=== PATIENT | male | born 1955 | race American Indian/Alaskan Native ===

== ENCOUNTER 2018-05-26 22:25 | Inpatient (IN) | payer MEDICARE ==
[2018-05-26] MEDS ORDERED: ASPIRIN PO ONE (22:55)
--- NOTE | 2018-05-26 22:55 | Emergency Department Report ---
ED Shortness of Breath HPI - General Chief Complaint: Dyspnea/Respdistress Stated Complaint: SHORTNESS OF BREATH Time Seen by Provider: 05/26/18 22:40 Source: patient, family Mode of arrival: Ambulatory Limitations: No Limitations - History of Present Illness Initial Comments: Patient is a 63-year-old male absence emergency room with complaints of chest pain and shortness of breath 4 days. Patient states the symptoms are worsening. Patient states that he is having left lower extremity pain and swelling. Patient states that the chest pain is a 5 out of 10 and is better with rest and worse with exertion. Patient states that the pain is not radi ating and is in the left side of his chest. Patient states the shortness of breath is better with rest and worse with exertion. Patient had a long travel recently in a car. Patient complaining of a new onset left lower extremity edema. Patient states that the left lower extremity pain is at a 4 out of 10. MD Complaint: shortness of breath, chest pain -: Sudden Severity: severe Pain Scale: 5 Quality: aching Consistency: constant Improves With: rest Worsens With: exertion Known History Of: congestive heart failure Associated Symptoms: chest pain, lower extremity pain Treatments Prior to Arrival: none - Related Data Home Oxygen Therapy: No Home Medications Medication Instructions Recorded Confirmed Last Taken Aspirin [Aspirin BABY CHEW TAB] 81 mg PO QDAY 12/02/14 02/04/15 Unknown Lisinopril [Zestril TAB] 0 mg PO QDAY 02/04/15 02/04/15 Unknown Previous Rx's Medication Instructions Recorded Last Taken Type Amiodarone [Cordarone 200 MG TAB] 200 mg PO QDAY #60 tablet 02/12/15 Unknown Rx Carvedilol [Coreg] 25 mg PO BID #60 tablet 02/12/15 Unknown Rx Lisinopril [Zestril TAB] 2.5 mg PO QDAY #30 tablet 02/12/15 Unknown Rx Warfarin [Coumadin] 5 mg PO QDAY #30 tablet 02/12/15 Unknown Rx Cyclobenzaprine [Flexeril] 10 mg PO BID PRN #30 tablet 09/18/15 Unknown Rx Oxycodone HCl/Acetaminophen 1 each PO Q6HR PRN #30 tablet 09/18/15 Unknown Rx [Percocet 10/325 mg] Allergies Allergy/AdvReac Type Severity Reaction Status Date / Time erythromycin base Allergy Unknown Verified 01/03/15 13:35 [From E-Mycin] ED Review of Systems ROS: Stated complaint: SHORTNESS OF BREATH Other details as noted in HPI Constitutional: denies: chills, fever Eyes: denies: eye pain, eye discharge, vision change ENT: denies: ear pain, throat pain Respiratory: shortness of breath, SOB with exertion, SOB at rest. denies: cough, wheezing Cardiovascular: chest pain, edema. denies: palpitations Endocrine: no symptoms reported Gastrointestinal: denies: abdominal pain, nausea, diarrhea Genitourinary: denies: urgency, dysuria Musculoskeletal: denies: back pain, joint swelling, arthralgia Skin: denies: rash, lesions Neurological: denies: headache, weakness, paresthesias Psychiatric: denies: anxiety, depression Hematological/Lymphatic: denies: easy bleeding, easy bruising ED Past Medical Hx - Past Medical History Previous Medical History?: Yes Hx Hypertension: Yes Hx Congestive Heart Failure: Yes Hx Diabetes: No Hx Asthma: No Hx COPD: No Additional medical history: Defib/Pacemaker - Surgical History Past Surgical History?: Yes Hx Pacemaker: Yes Hx Internal Defibrillator: Yes (AICD) Hx Cholecystectomy: Yes Hx Appendectomy: Yes Additional Surgical History: hernia surgery, right BKA - Family History Family history: no significant - Social History Smoking Status: Current Every Day Smoker Substance Use Type: None - Medications Home Medications: Home Medications Medication Instructions Recorded Confirmed Last Taken Type Aspirin [Aspirin BABY CHEW TAB] 81 mg PO QDAY 12/02/14 02/04/15 Unknown History Lisinopril [Zestril TAB] 0 mg PO QDAY 02/04/15 02/04/15 Unknown History Amiodarone [Cordarone 200 MG TAB] 200 mg PO QDAY #60 tablet 02/12/15 Unknown Rx Carvedilol [Coreg] 25 mg PO BID #60 tablet 02/12/15 Unknown Rx Lisinopril [Zestril TAB] 2.5 mg PO QDAY #30 tablet 02/12/15 Unknown Rx Warfarin [Coumadin] 5 mg PO QDAY #30 tablet 02/12/15 Unknown Rx Cyclobenzaprine [Flexeril] 10 mg PO BID PRN #30 tablet 09/18/15 Unknown Rx Oxycodone HCl/Acetaminophen 1 each PO Q6HR PRN #30 tablet 09/18/15 Unknown Rx [Percocet 10/325 mg] ED Physical Exam - General Limitations: No Limitations General appearance: alert, in distress - Head Head exam: Present: atraumatic, normocephalic - Eye Eye exam: Present: normal appearance - ENT ENT exam: Present: mucous membranes moist - Neck Neck exam: Present: normal inspection - Respiratory Respiratory exam: Present: respiratory distress, rales - Cardiovascular Cardiovascular Exam: Present: regular rate, normal rhythm. Absent: systolic murmur, diastolic murmur, rubs, gallop - GI/Abdominal GI/Abdominal exam: Present: soft, normal bowel sounds. Absent: distended, tenderness, guarding - Rectal Rectal exam: Present: deferred - Extremities Exam Extremities exam: Present: tenderness, pedal edema, calf tenderness - Back Exam Back exam: Present: normal inspection - Neurological Exam Neurological exam: Present: alert, oriented X3 - Psychiatric Psychiatric exam: Present: normal affect, normal mood - Skin Skin exam: Present: warm, dry, intact, normal color. Absent: rash ED Course Vital Signs 05/26/18 23:09 Pulse Rate 90 Respiratory 32 H Rate Blood Pressure 133/87 [Left] O2 Sat by Pulse 90 Oximetry - Reevaluation(s) Reevaluation #1: Initial evaluation done. Patient will have a CTA to rule out a PE. Patient placed on oxygen and oxygen sat improving. 05/26/18 22:40 Patient given something for pain. Patient states his pain is better. Patient still on oxygen. 05/26/18 23:30 Discussed all results the patient. Patient agrees with plan of care and admission. Patient to be admitted to the hospitalist service. 05/27/18 02:20 - Consultations Consultation #1: Hospitalist consult for admission. Hospitalist to admit patient. 05/27/18 02:21 ED Medical Decision Making - Lab Data Result diagrams: 05/26/18 23:00 05/26/18 23:00 - EKG Data -: EKG Interpreted by Me EKG shows normal: axis, ST-T waves Rate: normal - EKG Data Interpretation: other (AV paced) - Radiology Data Radiology results: report reviewed PROCEDURE: CT ANGIO CHEST TECHNIQUE: Medication reconciliation. IV contrast administration of weight-dependent volume of iodine-based contrast team (Omnipaque 350, 100 mL) CTA chest to opacify pulmonary arteries. MPR. CAUTION: Study not optimized for aortic dissection evaluation. Overall image quality is satisfactory. HISTORY: Shortness of breath and chest pain. COMPARISONS: Radiographs earlier same day. COMMENTS: Support devices: Dual lead cardiac pacemaker is present, resulting in significant beam hardening artifact limiting evaluation partially of the left upper lobe and adjacent soft tissues. Pulmonary artery embolism: None. Pneumothorax, consolidation or pleural effusion: Diffuse groundglass opacities with marked interstitial thickening and prominence of the central vascularity. No focal pleural effusion or pneumothorax. Cardiomegaly or pericardial effusion: Moderate to severe cardiac enlargement, specifically there is marked dilatation of the left atrium and ventricle. Sternum, ribs and thoracic spine: T8, mild anterior compression deformity. IMPRESSION: 1. No pulmonary embolism. 2. Moderate to severe cardiomegaly with diffuse interstitial edema, findings suggestive of congestive heart failure. No large pleural effusion. PROCEDURE: XR CHEST 1V AP TECHNIQUE: Single AP upright portable chest HISTORY: Dyspnea COMPARISONS: None FINDINGS: Trachea midline. Cardiomegaly. AICD with unremarkable position. Vascular and interstitial prominence compatible with congestion. No pneumothorax. No sizable effusion. No consolidation. No acute bony abnormality. IMPRESSION: Cardiomegaly. Mild vascular and interstitial prominence compatible with congest ion. - Medical Decision Making Patient is a 63-year-old male that presents to emergency room with complaints of chest pain shortness of breath. Patient found to be hypoxic. Patient also complained of left lower extremity pain and swelling. Patient had elevated d-dimer. CTA was negative or PE but shows CHF changes. Patient elevated BNP. Patient also found to be hyponatremic. Patient's troponin negative. Patient will be given Lovenox 1 mg/kg, for possible DVT until patient can have a Doppler done. Patient will be admitted for chest pain rule out ACS. Patient found to have CHF exacerbation. Patient will admitted to the hospitalist service. Patient also given IV Lasix. Patient given Dilaudid for chest pain and aspirin. - Differential Diagnosis chest pain. ACS. SOB. CHF. DVT. PE. Critical Care Time: Yes Critical care attestation.: If time is entered above; I have spent that time in minutes in the direct care of this critically ill patient, excluding procedure time. Critical Care Time: 45 minutes ED Disposition Clinical Impression: AICD (automatic cardioverter/defibrillator) present, Shortness of breath, Hypoxia, Lactic acid acidosis, Hyponatremia, Left leg pain, Left leg swelling Chest pain Qualifiers: Chest pain type: unspecified Qualified Code(s): R07.9 - Chest pain, unspecified CHF (congestive heart failure) Qualifiers: Heart failure type: unspecified Heart failure chronicity: acute Qualified Code(s): I50.9 - Heart failure, unspecified Disposition: 09 OP ADMIT IP TO THIS HOSP Is pt being admited?: Yes Does the pt Need Aspirin: No Condition: Critical Instructions: Chest Pain (ED) Time of Disposition: 02:33
[2018-05-26 23:38] LABS: Creatine Kinase MB 4.5 ng/mL (0.0-4.0)
[2018-05-26 23:39] LABS: Alanine Aminotransferase 22 units/L (7-56); BUN/Creatinine Ratio 27; Blood Urea Nitrogen 27 mg/dL (9-20); Calcium 8.5 mg/dL (8.4-10.2); Hemolysis Index 23
[2018-05-26] MEDS ORDERED: DILAUDID IV ONE (23:40)
--- NOTE | 2018-05-26 23:42 | XRay Report ---
PROCEDURE: XR CHEST 1V AP TECHNIQUE: Single AP upright portable chest HISTORY: Dyspnea COMPARISONS: None FINDINGS: Trachea midline. Cardiomegaly. AICD with unremarkable position. Vascular and interstitial prominence compatible with congestion. No pneumothorax. No sizable effusion. No consolidation. No acute bony abn ormality. IMPRESSION: Cardiomegaly. Mild vascular and interstitial prominence compatible with congestion. This document is electronically signed by Rocky Sauer MD., May 26 2018 11:40:03 PM ET
[2018-05-27 00:12] LABS: Mean Corpuscular HGB Conc 34 % (32-34); Mean Corpuscular Volume 86 fl (84-94); Platelet Count 224 K/mm3 (140-440); Red Blood Count 3.83 M/mm3 (3.65-5.03); Red Cell Distribution Width 18.7 % (13.2-15.2)
--- NOTE | 2018-05-27 02:01 | Cat Scan Report ---
PROCEDURE: CT ANGIO CHEST TECHNIQUE: Medication reconciliation. IV contrast administration of weight-dependent volume of iodine-based contrast team (Omnipaque 350, 1 00 mL) CTA chest to opacify pulmonary arteries. MPR. CAUTION: Study not optimized for aortic dissection evaluation. Overall image quality is satisfactory. HISTORY: Shortness of breath and chest pain. COMPARISONS: Radiographs earlier same day. COMMENTS: Support devices: Dual lead cardiac pacemaker is present, resulting in significant beam hardening ke fact limiting evaluation partially of the left upper lobe and adjacent soft tissues. Pulmonary artery embolism: None. Pneumothorax, consolidation or pleural effusion: Diffuse groundglass opacities with marked interstiti al thickening and prominence of the central vascularity. No focal pleural effusion or pneumothorax. Cardiomegaly or pericardial effusion: Moderate to severe cardiac enlargement, specifically there is m arked dilatation of the left atrium and ventricle. Sternum, ribs and thoracic spine: T8, mild anterior compression deformity. IMPRESSION: 1. No pulmonary embolism. 2. Moderate to severe cardiomegaly with diffuse interstitial edema, findings suggestive of congestive heart failure. No large pleural effusion. This document is electronically signed by Carroll Moon DO., May 27 2018 01:59:13 AM ET
[2018-05-27] MEDS ORDERED: LASIX IV ONE (02:19)
[2018-05-27 02:38] LABS: Anisocytosis 1+; Platelet Estimate Consistent w Auto; Poikilocytosis 1+; Total Cells Counted 100
[2018-05-27] MEDS ORDERED: LOVENOX SUB-Q SCH (03:00)
[2018-05-27] MEDS ORDERED: SODIUM CHLORIDE FLUSH SYRINGE 10 ML IV PRN (04:42)
[2018-05-27] MEDS ORDERED: ZOFRAN IV PRN (04:42)
[2018-05-27] MEDS ORDERED: TYLENOL PO PRN (04:42)
--- NOTE | 2018-05-27 04:51 | History and Physical Report ---
History of Present Illness Date of examination: 05/27/18 History of present illness: 63 year old man with history her home and history of CHF, hypertension, atrial flutter, coronary artery disease comes emergency room complains of shortness breath, PND, orthopnea and left leg swelling. Complains of dyspnea and exertio n, decrease exercise tolerance, weakness. Stated he just returned from [place] 2 days ago. He is on a blood thinner, he does not know why Review of systems Constitutional: no weight loss, chills, fever Ears, eyes, nose, mouth and throat: no nasal congestion, no nasal discharge, no sinus pressure, no vision change, no red eye. Neck: No neck pain or rigidity. Cardiovascular: no palpitations, chest pain Respiratory: no cough, shortness of breath Gastrointestinal: no hematochezia, abdominal pain Genitourinary : no frequency , no hematuria Musculoskeletal: no joint swelling or muscle ache Integumentary: no rash, no pruritis Neurological: no parathesias, no focal weakness Endocrine: no cold or heat intolerance, no polyuria or polydipsia Hematologic/Lymphatic: no easy bruising, no easy bleeding, no gland swelling Allergic/Immunologic: no urticaria, no angioedema. PAST MEDICAL HISTORY:CHF, hypertension, atrial flutter, coronary artery disease PAST SURGICAL HISTORY: AICD, right BKA, cholecystectomy, hernia repair SOCIAL HISTORY: Denies alcohol, drugs, 1 pack every 2 weeks FAMILY HISTORY: Hypertension Medications and Allergies Allergies Allergy/AdvReac Type Severity Reaction Status Date / Time erythromycin base Allergy Unknown Verified 01/03/15 13:35 [From E-Mycin] Home Medications Medication Instructions Recorded Confirmed Last Taken Type Aspirin [Aspirin BABY CHEW TAB] 81 mg PO QDAY 12/02/14 02/04/15 Unknown History Lisinopril [Zestril TAB] 0 mg PO QDAY 02/04/15 02/04/15 Unknown History Amiodarone [Cordarone 200 MG TAB] 200 mg PO QDAY #60 tablet 02/12/15 Unknown Rx Carvedilol [Coreg] 25 mg PO BID #60 tablet 02/12/15 Unknown Rx Lisinopril [Zestril TAB] 2.5 mg PO QDAY #30 tablet 02/12/15 Unknown Rx Warfarin [Coumadin] 5 mg PO QDAY #30 tablet 02/12/15 Unknown Rx Cyclobenzaprine [Flexeril] 10 mg PO BID PRN #30 tablet 09/18/15 Unknown Rx Oxycodone HCl/Acetaminophen 1 each PO Q6HR PRN #30 tablet 09/18/15 Unknown Rx [Percocet 10/325 mg] Active Meds: Active Medications Acetaminophen (Tylenol) 650 mg PO Q4H PRN PRN Reason: Pain MILD(1-3)/Fever >100.5/ANDERSON Aspirin (Baby Aspirin) 81 mg PO QDAY JULI Enoxaparin Sodium (Lovenox) 70 mg SUB-Q Q12HR [facility] Last Admin: 05/27/18 03:32 Dose: 70 mg Documented by: Furosemide (Lasix) 40 mg IV BID@0600,1800 [facility] Ondansetron HCl (Zofran) 4 mg IV Q8H PRN PRN Reason: Nausea And Vomiting Sodium Chloride (Sodium Chloride Flush Syringe 10 Ml) 10 ml IV BID JULI Sodium Chloride (Sodium Chloride Flush Syringe 10 Ml) 10 ml IV PRN PRN PRN Reason: LINE FLUSH Exam - Constitutional Vitals: Temp Pulse Resp BP Pulse Ox 97.5 F L 82 10 L 155/89 80 L 05/26/18 22:30 05/27/18 02:45 05/27/18 02:45 05/27/18 02:45 05/27/18 02:45 Results - Labs CBC & Chem 7: 05/26/18 23:00 05/26/18 23:00 Labs: Abnormal lab results 05/26/18 05/26/18 05/26/18 Range/Units 23:00 23:00 23:00 WBC 3.9 L (4.5-11.0) K/mm3 Hgb 11.0 L (11.8-15.2) gm/dl Hct 33.0 L (35.5-45.6) % RDW 18.7 H (13.2-15.2) % Monocytes % (Manual) 16.0 H (0.0-7.3) % Lymphocytes # (Manual) 0.9 L (1.2-5.4) K/mm3 D-Dimer 8624.60 H (0-234) ng/mlDDU Sodium 128 L (137-145) mmol/L Chloride 94.6 L (98-107) mmol/L BUN 27 H (9-20) mg/dL Glucose 119 H (75-100) mg/dL Lactic Acid (0.7-2.0) mmol/L Total Bilirubin 2.90 H (0.1-1.2) mg/dL Alkaline Phosphatase 178 H (35-129) units/L CK-MB (CK-2) (0.0-4.0) ng/mL NT-Pro-B Natriuret Pep (0-900) pg/mL Total Protein 8.5 H (6.3-8.2) g/dL Albumin 3.0 L (3.9-5) g/dL 05/26/18 05/26/18 05/27/18 Range/Units 23:00 23:36 00:40 WBC (4.5-11.0) K/mm3 Hgb (11.8-15.2) gm/dl Hct (35.5-45.6) % RDW (13.2-15.2) % Monocytes % (Manual) (0.0-7.3) % Lymphocytes # (Manual) (1.2-5.4) K/mm3 D-Dimer (0-234) ng/mlDDU Sodium (137-145) mmol/L Chloride (98-107) mmol/L BUN (9-20) mg/dL Glucose (75-100) mg/dL Lactic Acid 2.50 H* 2.40 H* (0.7-2.0) mmol/L Total Bilirubin (0.1-1.2) mg/dL Alkaline Phosphatase (35-129) units/L CK-MB (CK-2) 4.5 H (0.0-4.0) ng/mL NT-Pro-B Natriuret Pep 4911 H (0-900) pg/mL Total Protein (6.3-8.2) g/dL Albumin (3.9-5) g/dL - Imaging and Cardiology Chest x-ray: report reviewed CT scan - chest: report reviewed Assessment and Plan Assessment CHF exacerbation, acute on chronic Systolic Hypertension Atrial flutter Coronary artery disease Plan Admit to medicine Diurese with IV Lasix Start aspirin, check PT/INR I's and os, daily weights Check reticulocyte enzymes, echo, consult cardiology *Beta gagandeep, PEDRO inhibitor once home medications reconcile No evidence of infection, hold antibiotic DVT prophylaxis
[2018-05-27 05:30] LABS: INR 1.75 (0.87-1.13)
[2018-05-27 05:31] LABS: Partial Thromboplastin Time 46.9 Sec. (24.2-36.6)
[2018-05-27] MEDS: LASIX IV SCH ×2 (07:09→18:20)
[2018-05-27 10:01] LABS: BUN/Creatinine Ratio 36; Blood Urea Nitrogen 29 mg/dL (9-20); Calcium 8.8 mg/dL (8.4-10.2); Hemolysis Index 93
[2018-05-27 10:02] LABS: Creatine Kinase MB 5.2 ng/mL (0.0-4.0)
[2018-05-27] MEDS ORDERED: KIONEX PO ONE (10:46)
--- NOTE | 2018-05-27 10:59 | Progress Note ---
Assessment and Plan Assessment and plan: --Hyperkalemia; Kayexalate, closely monitor electrolytes --Hyponatremia; probably fluid overload secondary to congestive heart failure, Lasix and closely monitor electrolytes --Lactic acidosis; improved --Elevated d-dimer ; negative PE, negative DVT --Acute chronic systolic congestive heart failure[10-15% in 2015] Check echocardiogram for LV function and ejection fraction Cardiology consultation continue anti-failure medications --History of A. fib ; rate controlled, continue beta blockers --Chronic anticoagulation with Coumadin; INR --History of AICD; stable cardiology following --DVT Prophylaxis; patient on Coumadin Advanced care 32 minutes History Interval history: Patient seen and examined , medical records reviewed No new events per hour by the nursing staff Patient feels slightly better Alert awake oriented Vital signs reviewed Hospitalist Physical - Constitutional Vitals: Temp Pulse Resp BP Pulse Ox 97.5 F L 94 H 20 129/96 93 05/27/18 09:53 05/27/18 09:51 05/27/18 10:06 05/27/18 09:51 05/27/18 09:51 General appearance: Present: no acute distress, well-nourished - EENT Eyes: Present: PERRL, EOM intact - Neck Neck: Present: supple, normal ROM - Respiratory Respiratory effort: normal, pursed lips Respiratory: bilateral: diminished, rales, negative: rhonchi, wheezing - Cardiovascular Rhythm: regular Heart Sounds: Present: S1 & S2 - Extremities Extremities: no ischemia Extremity abnormal: edema - Abdominal General gastrointestinal: soft, non-tender, non-distended, normal bowel sounds - Integumentary Integumentary: Present: clear, warm - Psychiatric Psychiatric: appropriate mood/affect, cooperative - Neurologic Neurologic: CNII-XII intact, moves all extremities Results - Labs CBC & Chem 7: 05/26/18 23:00 05/27/18 09:29 Labs: Laboratory Last Values WBC 3.9 K/mm3 (4.5-11.0) L 05/26/18 23:00 RBC 3.83 M/mm3 (3.65-5.03) 05/26/18 23:00 Hgb 11.0 gm/dl (11.8-15.2) L 05/26/18 23:00 Hct 33.0 % (35.5-45.6) L 05/26/18 23:00 MCV 86 fl (84-94) 05/26/18 23:00 MCH 29 pg (28-32) 05/26/18 23:00 MCHC 34 % (32-34) 05/26/18 23:00 RDW 18.7 % (13.2-15.2) H 05/26/18 23:00 Plt Count 224 K/mm3 (140-440) 05/26/18 23:00 Lymph % (Auto) Computational Theory Scientist 05/26/18 23:00 [place] % (Auto) Computational Theory Scientist 05/26/18 23:00 Eos % (Auto) Computational Theory Scientist 05/26/18 23:00 Baso % (Auto) Computational Theory Scientist 05/26/18 23:00 Lymph # [employer] Scientist 05/26/18 23:00 [place] # [employer] Scientist 05/26/18 23:00 Eos # Computational Theory Scientist 05/26/18 23:00 Baso # [employer] Theory Scientist 05/26/18 23:00 Add Manual Diff Complete 05/26/18 23:00 Total Counted 100 05/26/18 23:00 Seg Neutrophils % [employer] Theory Scientist 05/26/18 23:00 Seg Neuts % (Manual) 56.0 % (40.0-70.0) 05/26/18 23:00 Band Neutrophils % 0 % 05/26/18 23:00 Lymphocytes % (Manual) 24.0 % (13.4-35.0) 05/26/18 23:00 Reactive Lymphs % (Man) 0 % 05/26/18 23:00 Monocytes % (Manual) 16.0 % (0.0-7.3) H 05/26/18 23:00 Eosinophils % (Manual) 3.0 % (0.0-4.3) 05/26/18 23:00 Basophils % (Manual) 1.0 % (0.0-1.8) 05/26/18 23:00 Metamyelocytes % 0 % 05/26/18 23:00 Myelocytes % 0 % 05/26/18 23:00 Promyelocytes % 0 % 05/26/18 23:00 Blast Cells % 0 % 05/26/18 23:00 Nucleated RBC % Not Reportable 05/26/18 23:00 Seg Neutrophils # Computational Theory Scientist 05/26/18 23:00 Seg Neutrophils # Man 2.2 K/mm3 (1.8-7.7) 05/26/18 23:00 Band Neutrophils # 0.0 K/mm3 05/26/18 23:00 Lymphocytes # (Manual) 0.9 K/mm3 (1.2-5.4) L 05/26/18 23:00 Abs React Lymphs (Man) 0.0 K/mm3 05/26/18 23:00 Monocytes # (Manual) 0.6 K/mm3 (0.0-0.8) 05/26/18 23:00 Eosinophils # (Manual) 0.1 K/mm3 (0.0-0.4) 05/26/18 23:00 Basophils # (Manual) 0.0 K/mm3 (0.0-0.1) 05/26/18 23:00 Metamyelocytes # 0.0 K/mm3 05/26/18 23:00 Myelocytes # 0.0 K/mm3 05/26/18 23:00 Promyelocytes # 0.0 K/mm3 05/26/18 23:00 Blast Cells # 0.0 K/mm3 05/26/18 23:00 WBC Morphology Not Reportable 05/26/18 23:00 Hypersegmented Neuts Not Reportable 05/26/18 23:00 Hyposegmented Neuts Not Reportable 05/26/18 23:00 Hypogranular Neuts Not Reportable 05/26/18 23:00 Smudge Cells Not Reportable 05/26/18 23:00 Toxic Granulation Not Reportable 05/26/18 23:00 Toxic Vacuolation Not Reportable 05/26/18 23:00 Dohle Bodies Not Reportable 05/26/18 23:00 Pelger-Huet Anomaly Not Reportable 05/26/18 23:00 Osmany Rods Not Reportable 05/26/18 23:00 Platelet Estimate Consistent w auto 05/26/18 23:00 Clumped Platelets Not Reportable 05/26/18 23:00 Plt Clumps, EDTA Not Reportable 05/26/18 23:00 Large Platelets Not Reportable 05/26/18 23:00 Giant Platelets Not Reportable 05/26/18 23:00 Platelet Satelliting Not Reportable 05/26/18 23:00 Plt Morphology Comment Not Reportable 05/26/18 23:00 RBC Morphology Not Reportable 05/26/18 23:00 Dimorphic RBCs Not Reportable 05/26/18 23:00 Polychromasia Not Reportable 05/26/18 23:00 Hypochromasia Not Reportable 05/26/18 23:00 Poikilocytosis 1+ 05/26/18 23:00 Anisocytosis 1+ 05/26/18 23:00 Microcytosis Not Reportable 05/26/18 23:00 Macrocytosis Not Reportable 05/26/18 23:00 Spherocytes Not Reportable 05/26/18 23:00 Pappenheimer Bodies Not Reportable 05/26/18 23:00 Sickle Cells Not Reportable 05/26/18 23:00 Target Cells Not Reportable 05/26/18 23:00 Tear Drop Cells Not Reportable 05/26/18 23:00 Ovalocytes Not Reportable 05/26/18 23:00 Helmet Cells Not Reportable 05/26/18 23:00 [place] Bodies Not Reportable 05/26/18 23:00 [place] Rings Not Reportable 05/26/18 23:00 Massiel Cells Not Reportable 05/26/18 23:00 Bite Cells Not Reportable 05/26/18 23:00 Crenated Cell Not Reportable 05/26/18 23:00 Elliptocytes Not Reportable 05/26/18 23:00 Acanthocytes (Spur) Not Reportable 05/26/18 23:00 Rouleaux Not Reportable 05/26/18 23:00 Hemoglobin C Crystals Not Reportable 05/26/18 23:00 Schistocytes Not Reportable 05/26/18 23:00 Malaria parasites Not Reportable 05/26/18 23:00 Bunny Bodies Not Reportable 05/26/18 23:00 Hem Pathologist Commnt No 05/26/18 23:00 PT 21.6 Sec. (12.2-14.9) H 05/27/18 05:01 INR 1.75 (0.87-1.13) H 05/27/18 05:01 APTT 46.9 Sec. (24.2-36.6) H 05/27/18 05:01 D-Dimer 8624.60 ng/mlDDU (0-234) H 05/26/18 23:00 Sodium 128 mmol/L (137-145) L 05/27/18 09:29 Potassium 5.6 mmol/L (3.6-5.0) H D 05/27/18 09:29 Chloride 97.5 mmol/L (98-107) L 05/27/18 09:29 Carbon Dioxide 22 mmol/L (22-30) 05/27/18 09:29 Anion Gap 14 mmol/L 05/27/18 09:29 BUN 29 mg/dL (9-20) H 05/27/18 09:29 Creatinine 0.8 mg/dL (0.8-1.5) 05/27/18 09:29 Estimated GFR > 60 ml/min 05/27/18 09:29 BUN/Creatinine Ratio 36 % 05/27/18 09:29 Glucose 84 mg/dL (75-100) 05/27/18 09:29 Lactic Acid 1.80 mmol/L (0.7-2.0) 05/27/18 02:00 Calcium 8.8 mg/dL (8.4-10.2) 05/27/18 09:29 Total Bilirubin 2.90 mg/dL (0.1-1.2) H 05/26/18 23:00 AST 38 units/L (5-40) 05/26/18 23:00 ALT 22 units/L (7-56) 05/26/18 23:00 Alkaline Phosphatase 178 units/L (35-129) H 05/26/18 23:00 Total Creatine Kinase 147 units/L (55-170) 05/27/18 09:29 CK-MB (CK-2) 5.2 ng/mL (0.0-4.0) H 05/27/18 09:29 CK-MB (CK-2) Rel Index 3.5 (0-4) 05/27/18 09:29 Troponin T 0.017 ng/mL (0.00-0.029) 05/27/18 09:29 NT-Pro-B Natriuret Pep 4911 pg/mL (0-900) H 05/26/18 23:00 Total Protein 8.5 g/dL (6.3-8.2) H 05/26/18 23:00 Albumin 3.0 g/dL (3.9-5) L 05/26/18 23:00 Albumin/Globulin Ratio 0.5 % 05/26/18 23:00 Active Medications - Current Medications Current Medications: Generic Name Dose Route Start Last Admin Trade Name Freq PRN Reason Stop Dose Admin Acetaminophen 650 mg 05/27/18 04:42 05/27/18 10:06 Tylenol PO 650 mg Q4H PRN Administration Pain MILD(1-3)/Fever >100.5/ANDERSON Aspirin 81 mg 05/27/18 10:00 Baby Aspirin PO QDAY [facility] Aspirin 81 mg 05/28/18 10:00 Baby Aspirin PO QDAY [facility] Carvedilol 25 mg 05/27/18 22:00 Coreg PO BID [facility] Furosemide 40 mg 05/27/18 06:00 05/27/18 07:09 Lasix IV Not Given BID@0600,1800 [facility] Lisinopril 2.5 mg 05/28/18 10:00 Zestril PO QDAY [facility] Ondansetron HCl 4 mg 05/27/18 04:42 Zofran IV Q8H PRN Nausea And Vomiting Sodium Chloride 10 ml 05/27/18 10:00 Sodium Chloride Flush Syringe 10 Ml IV BID [facility] Sodium Chloride 10 ml 05/27/18 04:42 Sodium Chloride Flush Syringe 10 Ml IV PRN PRN LINE FLUSH
--- NOTE | 2018-05-27 11:23 | Vascular Lab Report ---
PROCEDURE: VL VENOUS DUPLEX LE LT TECHNIQUE: Duplex Doppler ultrasound examination of the left leg venous system HISTORY: Left lower extremity pain and swelling, eval for dvt COMPARISONS: None FINDINGS: Normal compressibility, vascular patency, and augmentation are present diffusely throughout the visua lized portion of the deep veins. No abnormal intraluminal echoes are visualized to suggest deep vein thrombus. Diffuse edema present. IMPRESSION: No sonographic evidence of left leg DVT This document is electronically signed by Asim Rendon MD., May 27 2018 11:21:53 AM ET
[2018-05-27 11:43] LABS: Creatine Kinase MB 5.2 ng/mL (0.0-4.0)
[2018-05-27] MEDS: SODIUM CHLORIDE FLUSH SYRINGE 10 ML IV SCH ×2 (12:20→21:45)
[2018-05-27] MEDS: BABY ASPIRIN PO SCH (12:20)
[2018-05-27] MEDS: PERCOCET 5/325 PO PRN (15:36)
--- NOTE | 2018-05-27 17:20 | Consultation ---
History of Present Illness Consult date: 05/27/18 Consult reason: congestive heart failure History of present illness: Patient is a 63-year-old man with multiple medical problems. He has a severe dilated cardiomyopathy, with ejection fraction previously estimated at 10-15%. There is a primary cardiac defibrillator in situ. He has paroxysmal atrial flutter on warfarin, current INR 1.75. He is status post right below knee amputation. He presents to the hospital at this time with shortness of breath and chest x- rays consistent with acute pulmonary edema. He admits to a recent fondness for high sodium [place] food. Otherwise, he denies medication noncompliance. On presentation, his laboratory values show a hyponatremia of 128. He looks and feels better after initial inpatient diuretic therapy. EKG is sinus rhythm at 95 with ventricular pacing. Past History Past Medical History: atrial fib, heart failure, hypertension Past Surgical History: Other (cardiac defibrillator) Medications and Allergies Allergies Allergy/AdvReac Type Severity Reaction Status Date / Time erythromycin base Allergy Unknown Verified 01/03/15 13:35 [From E-Mycin] Home Medications Medication Instructions Recorded Confirmed Last Taken Type Aspirin [Aspirin BABY CHEW TAB] 81 mg PO QDAY 12/02/14 05/27/18 Unknown History Carvedilol [Coreg] 25 mg PO BID #60 tablet 02/12/15 05/27/18 Unknown Rx Lisinopril [Zestril TAB] 2.5 mg PO QDAY #30 tablet 02/12/15 05/27/18 Unknown Rx Oxycodone HCl/Acetaminophen 1 each PO Q6HR PRN #30 tablet 09/18/15 05/27/18 Unknown Rx [Percocet 10/325 mg] Warfarin [Coumadin] See Protocol PO QDAY 05/27/18 05/27/18 Unknown History Active Meds: Active Medications Acetaminophen (Tylenol) 650 mg PO Q4H PRN PRN Reason: Pain MILD(1-3)/Fever >100.5/ANDERSON Last Admin: 05/27/18 10:06 Dose: 650 mg Documented by: Aspirin (Baby Aspirin) 81 mg PO QDAY [facility] Last Admin: 05/27/18 12:20 Dose: 81 mg Documented by: Aspirin (Baby Aspirin) 81 mg PO QDAY [facility] Carvedilol (Coreg) 25 mg PO BID [facility] Furosemide (Lasix) 40 mg IV BID@0600,1800 [facility] Last Admin: 05/27/18 07:09 Dose: Not Given Documented by: Lisinopril (Zestril) 2.5 mg PO QDAY [facility] Ondansetron HCl (Zofran) 4 mg IV Q8H PRN PRN Reason: Nausea And Vomiting Oxycodone/Acetaminophen (Percocet 5/325) 1 tab PO Q6H PRN PRN Reason: Pain, Moderate (4-6) Last Admin: 05/27/18 15:36 Dose: 1 tab Documented by: Sodium Chloride (Sodium Chloride Flush Syringe 10 Ml) 10 ml IV BID [facility] Last Admin: 05/27/18 12:20 Dose: 10 ml Documented by: Sodium Chloride (Sodium Chloride Flush Syringe 10 Ml) 10 ml IV PRN PRN PRN Reason: LINE FLUSH Review of Systems Cardiovascular: orthopnea, shortness of breath, no chest pain, no palpitations, no rapid/irregular heart beat, no edema, no syncope, no lightheadedness Physical Examination Vital Signs Temp Pulse Resp BP Pulse Ox 97.5 F L 89 22 115/76 62 L 05/26/18 22:30 05/26/18 22:30 05/26/18 22:30 05/26/18 22:30 05/26/18 22:30 General appearance: no acute distress HEENT: Positive: PERRL Neck: Positive: neck supple Cardiac: Positive: Reg Rate and Rhythm Lungs: Positive: Decreased Breath Sounds Neuro: Positive: Grossly Intact Abdomen: Positive: Soft Male genitourinary: Positive: deferred Skin: Positive: Clear Extremities: Present: +1 Edema Results 05/26/18 23:00 05/27/18 09:29 Cardiac Enzymes 05/26/18 05/26/18 05/27/18 Range/Units 23:00 23:00 09:29 AST 38 (5-40) units/L CK-MB (CK-2) 4.5 H 5.2 H (0.0-4.0) ng/mL 05/27/18 Range/Units 10:58 AST (5-40) units/L CK-MB (CK-2) 5.2 H (0.0-4.0) ng/mL Coagulation 05/27/18 Range/Units 05:01 PT 21.6 H (12.2-14.9) Sec. INR 1.75 H (0.87-1.13) APTT 46.9 H (24.2-36.6) Sec. CBC 05/26/18 Range/Units 23:00 WBC 3.9 L (4.5-11.0) K/mm3 RBC 3.83 (3.65-5.03) M/mm3 Hgb 11.0 L (11.8-15.2) gm/dl Hct 33.0 L (35.5-45.6) % Plt Count 224 (140-440) K/mm3 Lymph # [employer] [place] # [employer] Eos # [employer] Baso # [employer] Comprehensive Metabolic Panel 05/26/18 05/27/18 Range/Units 23:00 09:29 Sodium 128 L 128 L (137-145) mmol/L Potassium 4.1 5.6 H D (3.6-5.0) mmol/L Chloride 94.6 L 97.5 L (98-107) mmol/L Carbon Dioxide 22 22 (22-30) mmol/L BUN 27 H 29 H (9-20) mg/dL Creatinine 1.0 0.8 (0.8-1.5) mg/dL Glucose 119 H 84 (75-100) mg/dL Calcium 8.5 8.8 (8.4-10.2) mg/dL AST 38 (5-40) units/L ALT 22 (7-56) units/L Alkaline Phosphatase 178 H (35-129) units/L Total Protein 8.5 H (6.3-8.2) g/dL Albumin 3.0 L (3.9-5) g/dL EKG interpretations - Telemetry EKG Rhythm: Sinus Rhythm (with ventricular pacemaker) Assessment and Plan - Patient Problems (1) CHF (congestive heart failure) Current Visit: Yes Status: Acute Qualifiers: Heart failure type: unspecified Heart failure chronicity: acute Qualified Code(s): I50.9 - Heart failure, unspecified Plan to address problem: Patient presents with acute on chronic systolic heart failure. Probable etiology at this time is dietary salt indiscretion. Recommend continue diuretic therapy, watch hyponatremia while diuresing, continue on the guideline directed medical therapy.
[2018-05-27] MEDS: COREG PO SCH (21:45)
[2018-05-27] MEDS ORDERED: DULCOLAX PO PRN (22:10)
[2018-05-27] MEDS: COLACE PO SCH (22:36)
[2018-05-27] MEDS: PEPCID PO SCH (22:37)
[2018-05-28] MEDS: PERCOCET 5/325 PO PRN ×4 (03:29→23:43)
[2018-05-28] MEDS: LASIX IV SCH ×2 (05:14→18:25)
[2018-05-28 06:17] LABS: Basophils % (Auto) 0.9 % (0.0-1.8); Eosinophils # (Auto) 0.1 K/mm3 (0.0-0.4); Eosinophils % (Auto) 3.3 % (0.0-4.3); Hematocrit 33.4 % (35.5-45.6); Lymphocytes # (Auto) 0.4 K/mm3 (1.2-5.4); Lymphocytes % (Auto) 13.5 % (13.4-35.0); Mean Corpuscular HGB Conc 33 % (32-34); Mean Corpuscular Volume 88 fl (84-94); Monocytes # (Auto) 0.4 K/mm3 (0.0-0.8); Monocytes % (Auto) 14.5 % (0.0-7.3); Platelet Count 181 K/mm3 (140-440); Red Blood Count 3.82 M/mm3 (3.65-5.03); Red Cell Distribution Width 18.9 % (13.2-15.2)
[2018-05-28 06:35] LABS: Alanine Aminotransferase 20 units/L (7-56); Albumin 2.9 g/dL (3.9-5); BUN/Creatinine Ratio 30; Blood Urea Nitrogen 30 mg/dL (9-20); Calcium 8.3 mg/dL (8.4-10.2); Hemolysis Index 19
--- NOTE | 2018-05-28 07:50 | Progress Note ---
Assessment and Plan 1. Dilated cardiomyopathy left ventricular ejection fraction 10-15% 2. Paroxysmal atrial fibrillation cartilage rhythm strip sinus with AV synchronous pacing. 3. Essential hypertension 4. Peripheral vascular disease status post right below the knee amputation. 5. Chronic combined systolic and diastolic heart failure Plan. Currently stable continue present management check follow-up chest x-ray. Subjective Date of service: 05/28/18 Interval history: No cardiac symptoms Objective Vital Signs Temp Pulse Resp Resp BP Pulse Ox 05/28/18 05:34 97.3 F L 78 20 112/72 96 05/28/18 04:29 20 05/28/18 03:29 20 05/28/18 00:32 97.4 F L 83 20 110/72 95 05/27/18 22:47 26 H 05/27/18 22:00 96 05/27/18 21:45 68 133/93 05/27/18 20:45 26 H 99 05/27/18 20:15 98.1 F 68 26 H 133/93 94 05/27/18 19:51 90 05/27/18 18:33 97.6 F 05/27/18 18:32 91 H 20 114/81 97 05/27/18 15:40 93 05/27/18 13:03 81 20 111/77 93 05/27/18 13:02 97.5 F L 05/27/18 10:06 20 05/27/18 09:53 97.5 F L 05/27/18 09:51 94 H 18 129/96 93 - Physical Examination General: Appears Well, No Apparent Distress HEENT: Positive: PERRL Neck: Positive: neck supple. Negative: JVD/HJR Cardiac: Positive: Regular Rate, S1/S2, S3, S4, PMI, Laterally Displaced Lungs: Positive: Normal Exam. Negative: No Wheeze, Rales, Rhonchi Neuro: Positive: Grossly Intact Abdomen: Positive: Unremarkable, Soft Skin: Positive: Clear Extremities: Present: +1 Edema, Other (right BKA) - Labs and Meds Cardiac Enzymes 05/27/18 05/27/18 05/28/18 Range/Units 09:29 10:58 05:46 AST 36 (5-40) units/L CK-MB (CK-2) 5.2 H 5.2 H (0.0-4.0) ng/mL CBC 05/28/18 Range/Units 05:46 WBC 3.0 L (4.5-11.0) K/mm3 RBC 3.82 (3.65-5.03) M/mm3 Hgb 11.0 L (11.8-15.2) gm/dl Hct 33.4 L (35.5-45.6) % Plt Count 181 (140-440) K/mm3 Lymph # 0.4 L (1.2-5.4) K/mm3 [place] # 0.4 (0.0-0.8) K/mm3 Eos # 0.1 (0.0-0.4) K/mm3 Baso # 0.0 (0.0-0.1) K/mm3 Comprehensive Metabolic Panel 05/27/18 05/28/18 Range/Units 09:29 05:46 Sodium 128 L 134 L (137-145) mmol/L Potassium 5.6 H D 4.2 D (3.6-5.0) mmol/L Chloride 97.5 L 97.2 L (98-107) mmol/L Carbon Dioxide 22 24 (22-30) mmol/L BUN 29 H 30 H (9-20) mg/dL Creatinine 0.8 1.0 (0.8-1.5) mg/dL Glucose 84 91 (75-100) mg/dL Calcium 8.8 8.3 L (8.4-10.2) mg/dL AST 36 (5-40) units/L ALT 20 (7-56) units/L Alkaline Phosphatase 167 H (35-129) units/L Total Protein 7.9 (6.3-8.2) g/dL Albumin 2.9 L (3.9-5) g/dL
[2018-05-28] MEDS: PEPCID PO SCH ×2 (10:18→21:10)
[2018-05-28] MEDS: BABY ASPIRIN PO SCH ×2 (10:19→10:22)
[2018-05-28] MEDS: COLACE PO SCH ×2 (10:19→21:10)
[2018-05-28] MEDS: SODIUM CHLORIDE FLUSH SYRINGE 10 ML IV SCH ×2 (10:20→21:12)
[2018-05-28] MEDS: COREG PO SCH ×2 (10:22→21:10)
[2018-05-28] MEDS: ZESTRIL PO SCH (10:22)
--- NOTE | 2018-05-28 18:09 | Progress Note ---
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 fib ; rate controlled, continue beta blockers --Hyperkalemia; corrected --Hyponatremia; gradually improving, continue current management Follow electrolytes --Lactic acidosis; improved --Elevated d-dimer ; negative PE, negative DVT --Chronic anticoagulation with Coumadin; INR --History of AICD; stable cardiology following --Moderate to severe malnutrition/hypoalbuminemia; nutrition supplements Supportive care, nutrition consult --History of peripheral vascular disease; status post right BKA Supportive care --DVT Prophylaxis; patient on Coumadin Present monitor the patient and adjust the management as indicated Possible discharge in 1-2 days if stable Plan of care reviewed with the patient and his nurse History Interval history: Patient seen And Examined Medical Records Reviewed No new events reported by the nursing Patient feels better complaints of generalized body pains Alert awake oriented 3 Vital signs reviewed Hospitalist Physical - Constitutional Vitals: Temp Pulse Resp BP Pulse Ox 97.9 F 78 18 102/69 94 05/28/18 16:45 05/28/18 16:46 05/28/18 16:46 05/28/18 16:46 05/28/18 16:46 General appearance: Present: no acute distress, well-nourished - EENT Eyes: Present: PERRL - Neck Neck: Present: supple, normal ROM - Respiratory Respiratory effort: normal Respiratory: bilateral: diminished, negative: rales, rhonchi, wheezing - Cardiovascular Rhythm: regular Heart Sounds: Present: S1 & S2 - Extremities Extremities: no ischemia, No edema - Abdominal General gastrointestinal: soft, non-tender, non-distended, normal bowel sounds - Integumentary Integumentary: Present: clear, warm - Psychiatric Psychiatric: appropriate mood/affect, cooperative - Neurologic Neurologic: CNII-XII intact, moves all extremities Results - Labs CBC & Chem 7: 05/28/18 05:46 05/28/18 05:46 Labs: Laboratory Last Values WBC 3.0 K/mm3 (4.5-11.0) L 05/28/18 05:46 RBC 3.82 M/mm3 (3.65-5.03) 05/28/18 05:46 Hgb 11.0 gm/dl (11.8-15.2) L 05/28/18 05:46 Hct 33.4 % (35.5-45.6) L 05/28/18 05:46 MCV 88 fl (84-94) 05/28/18 05:46 MCH 29 pg (28-32) 05/28/18 05:46 MCHC 33 % (32-34) 05/28/18 05:46 RDW 18.9 % (13.2-15.2) H 05/28/18 05:46 Plt Count 181 K/mm3 (140-440) 05/28/18 05:46 Lymph % (Auto) 13.5 % (13.4-35.0) 05/28/18 05:46 [place] % (Auto) 14.5 % (0.0-7.3) H 05/28/18 05:46 Eos % (Auto) 3.3 % (0.0-4.3) 05/28/18 05:46 Baso % (Auto) 0.9 % (0.0-1.8) 05/28/18 05:46 Lymph # 0.4 K/mm3 (1.2-5.4) L 05/28/18 05:46 [place] # 0.4 K/mm3 (0.0-0.8) 05/28/18 05:46 Eos # 0.1 K/mm3 (0.0-0.4) 05/28/18 05:46 Baso # 0.0 K/mm3 (0.0-0.1) 05/28/18 05:46 Add Manual Diff Complete 05/26/18 23:00 Total Counted 100 05/26/18 23:00 Seg Neutrophils % 67.8 % (40.0-70.0) 05/28/18 05:46 Seg Neuts % (Manual) 56.0 % (40.0-70.0) 05/26/18 23:00 Band Neutrophils % 0 % 05/26/18 23:00 Lymphocytes % (Manual) 24.0 % (13.4-35.0) 05/26/18 23:00 Reactive Lymphs % (Man) 0 % 05/26/18 23:00 Monocytes % (Manual) 16.0 % (0.0-7.3) H 05/26/18 23:00 Eosinophils % (Manual) 3.0 % (0.0-4.3) 05/26/18 23:00 Basophils % (Manual) 1.0 % (0.0-1.8) 05/26/18 23:00 Metamyelocytes % 0 % 05/26/18 23:00 Myelocytes % 0 % 05/26/18 23:00 Promyelocytes % 0 % 05/26/18 23:00 Blast Cells % 0 % 05/26/18 23:00 Nucleated RBC % Not Reportable 05/26/18 23:00 Seg Neutrophils # 2.0 K/mm3 (1.8-7.7) 05/28/18 05:46 Seg Neutrophils # Man 2.2 K/mm3 (1.8-7.7) 05/26/18 23:00 Band Neutrophils # 0.0 K/mm3 05/26/18 23:00 Lymphocytes # (Manual) 0.9 K/mm3 (1.2-5.4) L 05/26/18 23:00 Abs React Lymphs (Man) 0.0 K/mm3 05/26/18 23:00 Monocytes # (Manual) 0.6 K/mm3 (0.0-0.8) 05/26/18 23:00 Eosinophils # (Manual) 0.1 K/mm3 (0.0-0.4) 05/26/18 23:00 Basophils # (Manual) 0.0 K/mm3 (0.0-0.1) 05/26/18 23:00 Metamyelocytes # 0.0 K/mm3 05/26/18 23:00 Myelocytes # 0.0 K/mm3 05/26/18 23:00 Promyelocytes # 0.0 K/mm3 05/26/18 23:00 Blast Cells # 0.0 K/mm3 05/26/18 23:00 WBC Morphology Not Reportable 05/26/18 23:00 Hypersegmented Neuts Not Reportable 05/26/18 23:00 Hyposegmented Neuts Not Reportable 05/26/18 23:00 Hypogranular Neuts Not Reportable 05/26/18 23:00 Smudge Cells Not Reportable 05/26/18 23:00 Toxic Granulation Not Reportable 05/26/18 23:00 Toxic Vacuolation Not Reportable 05/26/18 23:00 Dohle Bodies Not Reportable 05/26/18 23:00 Pelger-Huet Anomaly Not Reportable 05/26/18 23:00 Osmany Rods Not Reportable 05/26/18 23:00 Platelet Estimate Consistent w auto 05/26/18 23:00 Clumped Platelets Not Reportable 05/26/18 23:00 Plt Clumps, EDTA Not Reportable 05/26/18 23:00 Large Platelets Not Reportable 05/26/18 23:00 Giant Platelets Not Reportable 05/26/18 23:00 Platelet Satelliting Not Reportable 05/26/18 23:00 Plt Morphology Comment Not Reportable 05/26/18 23:00 RBC Morphology Not Reportable 05/26/18 23:00 Dimorphic RBCs Not Reportable 05/26/18 23:00 Polychromasia Not Reportable 05/26/18 23:00 Hypochromasia Not Reportable 05/26/18 23:00 Poikilocytosis 1+ 05/26/18 23:00 Anisocytosis 1+ 05/26/18 23:00 Microcytosis Not Reportable 05/26/18 23:00 Macrocytosis Not Reportable 05/26/18 23:00 Spherocytes Not Reportable 05/26/18 23:00 Pappenheimer Bodies Not Reportable 05/26/18 23:00 Sickle Cells Not Reportable 05/26/18 23:00 Target Cells Not Reportable 05/26/18 23:00 Tear Drop Cells Not Reportable 05/26/18 23:00 Ovalocytes Not Reportable 05/26/18 23:00 Helmet Cells Not Reportable 05/26/18 23:00 [place] Bodies Not Reportable 05/26/18 23:00 [place] Rings Not Reportable 05/26/18 23:00 Massiel Cells Not Reportable 05/26/18 23:00 Bite Cells Not Reportable 05/26/18 23:00 Crenated Cell Not Reportable 05/26/18 23:00 Elliptocytes Not Reportable 05/26/18 23:00 Acanthocytes (Spur) Not Reportable 05/26/18 23:00 Rouleaux Not Reportable 05/26/18 23:00 Hemoglobin C Crystals Not Reportable 05/26/18 23:00 Schistocytes Not Reportable 05/26/18 23:00 Malaria parasites Not Reportable 05/26/18 23:00 Bunny Bodies Not Reportable 05/26/18 23:00 Hem Pathologist Commnt No 05/26/18 23:00 PT 21.6 Sec. (12.2-14.9) H 05/27/18 05:01 INR 1.75 (0.87-1.13) H 05/27/18 05:01 APTT 46.9 Sec. (24.2-36.6) H 05/27/18 05:01 D-Dimer 8624.60 ng/mlDDU (0-234) H 05/26/18 23:00 Sodium 134 mmol/L (137-145) L 05/28/18 05:46 Potassium 4.2 mmol/L (3.6-5.0) D 05/28/18 05:46 Chloride 97.2 mmol/L (98-107) L 05/28/18 05:46 Carbon Dioxide 24 mmol/L (22-30) 05/28/18 05:46 Anion Gap 17 mmol/L 05/28/18 05:46 BUN 30 mg/dL (9-20) H 05/28/18 05:46 Creatinine 1.0 mg/dL (0.8-1.5) 05/28/18 05:46 Estimated GFR > 60 ml/min 05/28/18 05:46 BUN/Creatinine Ratio 30 % 05/28/18 05:46 Glucose 91 mg/dL (75-100) 05/28/18 05:46 Lactic Acid 1.80 mmol/L (0.7-2.0) 05/27/18 02:00 Calcium 8.3 mg/dL (8.4-10.2) L 05/28/18 05:46 Magnesium 2.20 mg/dL (1.7-2.3) 05/28/18 05:46 Total Bilirubin 2.40 mg/dL (0.1-1.2) H 05/28/18 05:46 AST 36 units/L (5-40) 05/28/18 05:46 ALT 20 units/L (7-56) 05/28/18 05:46 Alkaline Phosphatase 167 units/L (35-129) H 05/28/18 05:46 Total Creatine Kinase 142 units/L (55-170) 05/27/18 10:58 CK-MB (CK-2) 5.2 ng/mL (0.0-4.0) H 05/27/18 10:58 CK-MB (CK-2) Rel Index 3.6 (0-4) 05/27/18 10:58 Troponin T 0.016 ng/mL (0.00-0.029) 05/27/18 10:58 NT-Pro-B Natriuret Pep 4911 pg/mL (0-900) H 05/26/18 23:00 Total Protein 7.9 g/dL (6.3-8.2) 05/28/18 05:46 Albumin 2.9 g/dL (3.9-5) L 05/28/18 05:46 Albumin/Globulin Ratio 0.6 % 05/28/18 05:46 Active Medications - Current Medications Current Medications: Generic Name Dose Route Start Last Admin Trade Name Freq PRN Reason Stop Dose Admin Acetaminophen 650 mg 05/27/18 04:42 05/27/18 10:06 Tylenol PO 650 mg Q4H PRN Administration Pain MILD(1-3)/Fever >100.5/ANDERSON Aspirin 81 mg 05/27/18 10:00 05/28/18 10:19 Baby Aspirin PO 81 mg QDAY JULI Administration Aspirin 81 mg 05/28/18 10:00 05/28/18 10:22 Baby Aspirin PO Not Given QDAY JULI Bisacodyl 10 mg 05/27/18 22:10 05/27/18 23:30 Dulcolax PO 10 mg QDAY PRN Administration Constipation Carvedilol 25 mg 05/27/18 22:00 05/28/18 10:22 Coreg PO Not Given BID JULI Docusate Sodium 100 mg 05/27/18 23:00 05/28/18 10:19 Colace PO 100 mg BID JULI Administration Famotidine 20 mg 05/27/18 23:00 05/28/18 10:18 Pepcid PO 20 mg BID JULI Administration Furosemide 40 mg 05/27/18 06:00 05/28/18 05:14 Lasix IV 40 mg BID@0600,1800 JULI Administration Lisinopril 2.5 mg 05/28/18 10:00 05/28/18 10:22 Zestril PO Not Given QDAY JULI Ondansetron HCl 4 mg 05/27/18 04:42 05/28/18 05:14 Zofran IV 4 mg Q8H PRN Administration Nausea And Vomiting Oxycodone/Acetaminophen 1 tab 05/27/18 12:23 05/28/18 10:18 Percocet 5/325 PO 1 tab Q6H PRN Administration Pain, Moderate (4-6) Sodium Chloride 10 ml 05/27/18 10:00 05/28/18 10:20 Sodium Chloride Flush Syringe 10 Ml IV 10 ml BID JULI Administration Sodium Chloride 10 ml 05/27/18 04:42 Sodium Chloride Flush Syringe 10 Ml IV PRN PRN LINE FLUSH
[2018-05-29] MEDS: LASIX IV SCH ×2 (05:48→17:26)
[2018-05-29 08:16] LABS: INR 1.51 (0.87-1.13)
[2018-05-29 08:22] LABS: BUN/Creatinine Ratio 31; Blood Urea Nitrogen 31 mg/dL (9-20); Calcium 8.2 mg/dL (8.4-10.2); Hemolysis Index 255
[2018-05-29 10:17] LABS: BUN/Creatinine Ratio 28; Blood Urea Nitrogen 31 mg/dL (9-20); Calcium 8.2 mg/dL (8.4-10.2); Hemolysis Index 8
[2018-05-29] MEDS: COLACE PO SCH ×2 (11:21→21:23)
[2018-05-29] MEDS: PEPCID PO SCH ×2 (11:21→21:23)
[2018-05-29] MEDS: BABY ASPIRIN PO SCH ×2 (11:21)
[2018-05-29] MEDS: COREG PO SCH ×2 (11:22→21:23)
[2018-05-29] MEDS: ZESTRIL PO SCH (11:22)
[2018-05-29] MEDS: SODIUM CHLORIDE FLUSH SYRINGE 10 ML IV SCH ×2 (11:22→21:23)
--- NOTE | 2018-05-29 13:02 | Progress Note ---
Assessment and Plan 1. Dilated cardiomyopathy left ventricular ejection fraction 10-15% 2. Paroxysmal atrial fibrillation cartilage rhythm strip sinus with AV synchronous pacing. 3. Essential hypertension 4. Peripheral vascular disease status post right below the knee amputation. 5. Chronic combined systolic and diastolic heart failure Plan. Currently stable continue present management check follow-up chest x-ray. Subjective Date of service: 05/29/18 Interval history: No cardiac symptoms Objective Vital Signs Temp Pulse Pulse Resp Resp BP BP 05/29/18 10:39 97.9 F 05/29/18 10:38 66 18 91/67 05/29/18 09:30 05/29/18 05:59 97.3 F L 20 98/64 05/29/18 00:45 97.3 F L 20 92/55 05/29/18 00:43 20 05/28/18 23:43 20 05/28/18 23:20 76 22 05/28/18 22:00 20 05/28/18 21:10 100 H 113/81 05/28/18 21:00 97.4 F L 86 20 117/79 05/28/18 20:50 05/28/18 20:30 97.4 F L 20 113/81 05/28/18 19:31 75 05/28/18 19:25 20 05/28/18 16:46 78 18 102/69 05/28/18 16:45 97.9 F 05/28/18 13:54 97.2 F L 63 18 05/28/18 13:36 82 112/76 BP Pulse Ox 05/29/18 10:39 05/29/18 10:38 95 05/29/18 09:30 95 05/29/18 05:59 05/29/18 00:45 05/29/18 00:43 05/28/18 23:43 05/28/18 23:20 99 05/28/18 22:00 05/28/18 21:10 05/28/18 21:00 95 05/28/18 20:50 93 05/28/18 20:30 05/28/18 19:31 05/28/18 19:25 05/28/18 16:46 94 05/28/18 16:45 05/28/18 13:54 112/76 92 05/28/18 13:36 91 - Physical Examination General: Appears Well, No Apparent Distress HEENT: Positive: PERRL Neck: Positive: neck supple. Negative: JVD/HJR Cardiac: Positive: Regular Rate, S1/S2, S3, S4, PMI, Dilated, Laterally Displaced Lungs: Positive: clear to auscultation, No Wheeze, Rales, Rhonchi Neuro: Positive: Grossly Intact Abdomen: Positive: Unremarkable, Soft Skin: Positive: Clear Extremities: Present: +1 Edema, Other (right BKA) - Labs and Meds Coagulation 05/29/18 Range/Units 06:55 PT 19.2 H (12.2-14.9) Sec. INR 1.51 H (0.87-1.13) Comprehensive Metabolic Panel 05/29/18 05/29/18 Range/Units 06:55 09:33 Sodium 128 L 130 L (137-145) mmol/L Potassium TNR 4.6 Chloride 95.2 L 96.1 L (98-107) mmol/L Carbon Dioxide 24 26 (22-30) mmol/L BUN 31 H 31 H (9-20) mg/dL Creatinine 1.0 1.1 (0.8-1.5) mg/dL Glucose 77 102 H (75-100) mg/dL Calcium 8.2 L 8.2 L (8.4-10.2) mg/dL
--- NOTE | 2018-05-29 15:34 | Progress Note ---
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 fib ; rate controlled, continue beta blockers --Hyperkalemia; corrected --Hyponatremia; significant improvement, current management --Lactic acidosis; improved --Elevated d-dimer ; negative PE, negative DVT --Chronic anticoagulation with Coumadin; INR --History of AICD; stable cardiology following --Moderate to severe malnutrition/hypoalbuminemia; nutrition supplements Supportive care, nutrition consult --History of peripheral vascular disease; status post right BKA Supportive care --DVT Prophylaxis; patient on Coumadin Present monitor the patient and adjust the management as indicated Possible discharge in 1-2 days if stable Plan of care reviewed with the patient and his nurse History Interval history: Patient seen and examined medical records reviewed Patient feels slightly better no new complaints No chest pain or shortness of breath Vital signs noted Hospitalist Physical - Constitutional Vitals: Temp Pulse Resp BP Pulse Ox 97.9 F 66 18 91/67 95 05/29/18 10:39 05/29/18 10:38 05/29/18 10:38 05/29/18 10:38 05/29/18 10:38 General appearance: Present: no acute distress, well-nourished - EENT Eyes: Present: PERRL, EOM intact - Neck Neck: Present: supple, normal ROM - Respiratory Respiratory effort: normal Respiratory: bilateral: diminished, negative: rales, rhonchi, wheezing - Cardiovascular Rhythm: regular Heart Sounds: Present: S1 & S2 - Extremities Extremities: no ischemia, No edema Peripheral Pulses: within normal limits - Abdominal General gastrointestinal: soft, non-tender, non-distended, normal bowel sounds - Integumentary Integumentary: Present: clear, warm - Psychiatric Psychiatric: appropriate mood/affect, cooperative - Neurologic Neurologic: CNII-XII intact, moves all extremities Results - Labs CBC & Chem 7: 05/28/18 05:46 05/29/18 09:33 Labs: Laboratory Last Values WBC 3.0 K/mm3 (4.5-11.0) L 05/28/18 05:46 RBC 3.82 M/mm3 (3.65-5.03) 05/28/18 05:46 Hgb 11.0 gm/dl (11.8-15.2) L 05/28/18 05:46 Hct 33.4 % (35.5-45.6) L 05/28/18 05:46 MCV 88 fl (84-94) 05/28/18 05:46 MCH 29 pg (28-32) 05/28/18 05:46 MCHC 33 % (32-34) 05/28/18 05:46 RDW 18.9 % (13.2-15.2) H 05/28/18 05:46 Plt Count 181 K/mm3 (140-440) 05/28/18 05:46 Lymph % (Auto) 13.5 % (13.4-35.0) 05/28/18 05:46 [place] % (Auto) 14.5 % (0.0-7.3) H 05/28/18 05:46 Eos % (Auto) 3.3 % (0.0-4.3) 05/28/18 05:46 Baso % (Auto) 0.9 % (0.0-1.8) 05/28/18 05:46 Lymph # 0.4 K/mm3 (1.2-5.4) L 05/28/18 05:46 [place] # 0.4 K/mm3 (0.0-0.8) 05/28/18 05:46 Eos # 0.1 K/mm3 (0.0-0.4) 05/28/18 05:46 Baso # 0.0 K/mm3 (0.0-0.1) 05/28/18 05:46 Add Manual Diff Complete 05/26/18 23:00 Total Counted 100 05/26/18 23:00 Seg Neutrophils % 67.8 % (40.0-70.0) 05/28/18 05:46 Seg Neuts % (Manual) 56.0 % (40.0-70.0) 05/26/18 23:00 Band Neutrophils % 0 % 05/26/18 23:00 Lymphocytes % (Manual) 24.0 % (13.4-35.0) 05/26/18 23:00 Reactive Lymphs % (Man) 0 % 05/26/18 23:00 Monocytes % (Manual) 16.0 % (0.0-7.3) H 05/26/18 23:00 Eosinophils % (Manual) 3.0 % (0.0-4.3) 05/26/18 23:00 Basophils % (Manual) 1.0 % (0.0-1.8) 05/26/18 23:00 Metamyelocytes % 0 % 05/26/18 23:00 Myelocytes % 0 % 05/26/18 23:00 Promyelocytes % 0 % 05/26/18 23:00 Blast Cells % 0 % 05/26/18 23:00 Nucleated RBC % Not Reportable 05/26/18 23:00 Seg Neutrophils # 2.0 K/mm3 (1.8-7.7) 05/28/18 05:46 Seg Neutrophils # Man 2.2 K/mm3 (1.8-7.7) 05/26/18 23:00 Band Neutrophils # 0.0 K/mm3 05/26/18 23:00 Lymphocytes # (Manual) 0.9 K/mm3 (1.2-5.4) L 05/26/18 23:00 Abs React Lymphs (Man) 0.0 K/mm3 05/26/18 23:00 Monocytes # (Manual) 0.6 K/mm3 (0.0-0.8) 05/26/18 23:00 Eosinophils # (Manual) 0.1 K/mm3 (0.0-0.4) 05/26/18 23:00 Basophils # (Manual) 0.0 K/mm3 (0.0-0.1) 05/26/18 23:00 Metamyelocytes # 0.0 K/mm3 05/26/18 23:00 Myelocytes # 0.0 K/mm3 05/26/18 23:00 Promyelocytes # 0.0 K/mm3 05/26/18 23:00 Blast Cells # 0.0 K/mm3 05/26/18 23:00 WBC Morphology Not Reportable 05/26/18 23:00 Hypersegmented Neuts Not Reportable 05/26/18 23:00 Hyposegmented Neuts Not Reportable 05/26/18 23:00 Hypogranular Neuts Not Reportable 05/26/18 23:00 Smudge Cells Not Reportable 05/26/18 23:00 Toxic Granulation Not Reportable 05/26/18 23:00 Toxic Vacuolation Not Reportable 05/26/18 23:00 Dohle Bodies Not Reportable 05/26/18 23:00 Pelger-Huet Anomaly Not Reportable 05/26/18 23:00 Osmany Rods Not Reportable 05/26/18 23:00 Platelet Estimate Consistent w auto 05/26/18 23:00 Clumped Platelets Not Reportable 05/26/18 23:00 Plt Clumps, EDTA Not Reportable 05/26/18 23:00 Large Platelets Not Reportable 05/26/18 23:00 Giant Platelets Not Reportable 05/26/18 23:00 Platelet Satelliting Not Reportable 05/26/18 23:00 Plt Morphology Comment Not Reportable 05/26/18 23:00 RBC Morphology Not Reportable 05/26/18 23:00 Dimorphic RBCs Not Reportable 05/26/18 23:00 Polychromasia Not Reportable 05/26/18 23:00 Hypochromasia Not Reportable 05/26/18 23:00 Poikilocytosis 1+ 05/26/18 23:00 Anisocytosis 1+ 05/26/18 23:00 Microcytosis Not Reportable 05/26/18 23:00 Macrocytosis Not Reportable 05/26/18 23:00 Spherocytes Not Reportable 05/26/18 23:00 Pappenheimer Bodies Not Reportable 05/26/18 23:00 Sickle Cells Not Reportable 05/26/18 23:00 Target Cells Not Reportable 05/26/18 23:00 Tear Drop Cells Not Reportable 05/26/18 23:00 Ovalocytes Not Reportable 05/26/18 23:00 Helmet Cells Not Reportable 05/26/18 23:00 [place] Bodies Not Reportable 05/26/18 23:00 [place] Rings Not Reportable 05/26/18 23:00 Massiel Cells Not Reportable 05/26/18 23:00 Bite Cells Not Reportable 05/26/18 23:00 Crenated Cell Not Reportable 05/26/18 23:00 Elliptocytes Not Reportable 05/26/18 23:00 Acanthocytes (Spur) Not Reportable 05/26/18 23:00 Rouleaux Not Reportable 05/26/18 23:00 Hemoglobin C Crystals Not Reportable 05/26/18 23:00 Schistocytes Not Reportable 05/26/18 23:00 Malaria parasites Not Reportable 05/26/18 23:00 Bunny Bodies Not Reportable 05/26/18 23:00 Hem Pathologist Commnt No 05/26/18 23:00 PT 19.2 Sec. (12.2-14.9) H 05/29/18 06:55 INR 1.51 (0.87-1.13) H 05/29/18 06:55 APTT 46.9 Sec. (24.2-36.6) H 05/27/18 05:01 D-Dimer 8624.60 ng/mlDDU (0-234) H 05/26/18 23:00 Sodium 130 mmol/L (137-145) L 05/29/18 09:33 Potassium 4.6 mmol/L (3.6-5.0) 05/29/18 09:33 Chloride 96.1 mmol/L (98-107) L 05/29/18 09:33 Carbon Dioxide 26 mmol/L (22-30) 05/29/18 09:33 Anion Gap 13 mmol/L 05/29/18 09:33 BUN 31 mg/dL (9-20) H 05/29/18 09:33 Creatinine 1.1 mg/dL (0.8-1.5) 05/29/18 09:33 Estimated GFR > 60 ml/min 05/29/18 09:33 BUN/Creatinine Ratio 28 % 05/29/18 09:33 Glucose 102 mg/dL (75-100) H 05/29/18 09:33 Lactic Acid 1.80 mmol/L (0.7-2.0) 05/27/18 02:00 Calcium 8.2 mg/dL (8.4-10.2) L 05/29/18 09:33 Magnesium 2.20 mg/dL (1.7-2.3) 05/28/18 05:46 Total Bilirubin 2.40 mg/dL (0.1-1.2) H 05/28/18 05:46 AST 36 units/L (5-40) 05/28/18 05:46 ALT 20 units/L (7-56) 05/28/18 05:46 Alkaline Phosphatase 167 units/L (35-129) H 05/28/18 05:46 Total Creatine Kinase 142 units/L (55-170) 05/27/18 10:58 CK-MB (CK-2) 5.2 ng/mL (0.0-4.0) H 05/27/18 10:58 CK-MB (CK-2) Rel Index 3.6 (0-4) 05/27/18 10:58 Troponin T 0.016 ng/mL (0.00-0.029) 05/27/18 10:58 NT-Pro-B Natriuret Pep 4911 pg/mL (0-900) H 05/26/18 23:00 Total Protein 7.9 g/dL (6.3-8.2) 05/28/18 05:46 Albumin 2.9 g/dL (3.9-5) L 05/28/18 05:46 Albumin/Globulin Ratio 0.6 % 05/28/18 05:46 Active Medications - Current Medications Current Medications: Generic Name Dose Route Start Last Admin Trade Name Freq PRN Reason Stop Dose Admin Acetaminophen 650 mg 05/27/18 04:42 05/27/18 10:06 Tylenol PO 650 mg Q4H PRN Administration Pain MILD(1-3)/Fever >100.5/[place] Aspirin 81 mg 05/27/18 10:00 05/29/18 11:21 Baby Aspirin PO 81 mg QDAY JULI Administration Aspirin 81 mg 05/28/18 10:00 05/29/18 11:21 Baby Aspirin PO Not Given QDAY JULI Bisacodyl 10 mg 05/27/18 22:10 05/27/18 23:30 Dulcolax PO 10 mg QDAY PRN Administration Constipation Carvedilol 25 mg 05/27/18 22:00 05/29/18 11:22 Coreg PO Not Given BID JULI Docusate Sodium 100 mg 05/27/18 23:00 05/29/18 11:21 Colace PO 100 mg BID JULI Administration Famotidine 20 mg 05/27/18 23:00 05/29/18 11:21 Pepcid PO 20 mg BID JULI Administration Furosemide 40 mg 05/27/18 06:00 05/29/18 05:48 Lasix IV 40 mg BID@0600,1800 JULI Administration Lisinopril 2.5 mg 05/28/18 10:00 05/29/18 11:22 Zestril PO Not Given QDAY JULI Ondansetron HCl 4 mg 05/27/18 04:42 05/28/18 05:14 Zofran IV 4 mg Q8H PRN Administration Nausea And Vomiting Oxycodone/Acetaminophen 1 tab 05/27/18 12:23 05/28/18 23:43 Percocet 5/325 PO 1 tab Q6H PRN Administration Pain, Moderate (4-6) Sodium Chloride 10 ml 05/27/18 10:00 05/29/18 11:22 Sodium Chloride Flush Syringe 10 Ml IV 10 ml BID JULI Administration Sodium Chloride 10 ml 05/27/18 04:42 Sodium Chloride Flush Syringe 10 Ml IV PRN PRN LINE FLUSH
[2018-05-30 05:53] LABS: INR 1.6 (0.87-1.13)
[2018-05-30] MEDS: LASIX IV SCH (06:06)
[2018-05-30 06:08] LABS: Calcium 8.7 mg/dL (8.4-10.2)
[2018-05-30 09:07] VITALS: BP 112/75
[2018-05-30] MEDS: PEPCID PO SCH (09:25)
[2018-05-30] MEDS: PERCOCET 5/325 PO PRN (09:25)
[2018-05-30] MEDS: COLACE PO SCH (09:25)
[2018-05-30] MEDS: BABY ASPIRIN PO SCH ×2 (09:26)
[2018-05-30] MEDS: SODIUM CHLORIDE FLUSH SYRINGE 10 ML IV SCH (09:26)
[2018-05-30] MEDS: ZESTRIL PO SCH (09:26)
[2018-05-30] MEDS: COREG PO SCH (09:26)
--- NOTE | 2018-05-30 15:16 | Progress Note ---
Assessment and Plan - Patient Problems (1) CHF (congestive heart failure) Current Visit: Yes Status: Acute Qualifiers: Heart failure type: unspecified Heart failure chronicity: acute Qualified Code(s): I50.9 - Heart failure, unspecified Plan to address problem: Patient is stable for cardiac discharge on guideline directed medical therapy for chronic systolic heart failure. Outpatient cardiac follow-up in 7 days. Subjective Date of service: 05/30/18 Interval history: Patient is comfortable, no new cardiac complaints. He wants to go home. Objective Vital Signs Temp Pulse Resp Resp BP Pulse Ox 05/30/18 10:00 78 05/30/18 08:54 98.1 F 76 18 112/75 96 05/30/18 03:47 97.6 F 71 20 93/63 100 05/29/18 23:45 97.1 F L 73 20 97/66 100 05/29/18 22:00 22 05/29/18 21:25 22 100 05/29/18 21:23 73 105/78 05/29/18 20:05 73 105/78 97 05/29/18 19:29 70 05/29/18 17:25 97.3 F L 05/29/18 17:24 66 18 99/68 100 - Physical Examination General: No Apparent Distress, Cachectic HEENT: Positive: PERRL Neck: Positive: neck supple. Negative: JVD/HJR Cardiac: Positive: Reg Rate and Rhythm Lungs: Positive: Decreased Breath Sounds Neuro: Positive: Grossly Intact Abdomen: Positive: Unremarkable, Soft Skin: Positive: Clear Extremities: Present: +1 Edema, Other (right BKA) - Labs and Meds Coagulation 05/30/18 Range/Units 05:19 PT 20.1 H (12.2-14.9) Sec. INR 1.60 H (0.87-1.13) Comprehensive Metabolic Panel 05/30/18 Range/Units 05:19 Sodium 129 L (137-145) mmol/L Potassium 4.3 (3.6-5.0) mmol/L Chloride 92.8 L (98-107) mmol/L Carbon Dioxide 23 (22-30) mmol/L BUN 35 H (9-20) mg/dL Creatinine 1.5 (0.8-1.5) mg/dL Glucose 71 L (75-100) mg/dL Calcium 8.7 (8.4-10.2) mg/dL
--- NOTE | 2018-05-30 16:34 | Discharge Summary ---
Providers - Providers Date of Admission: 05/27/18 04:42 Date of discharge: 05/30/18 Attending physician: CELSA SORIANO 05/27/18 04:42 Consult to Physician [CONS] Routine Comment: Consulting Provider: SANGITA NOE Physician Instructions: Reason For Exam: chf Primary care physician: [facility] Hospitalization Reason for admission: worsening shortness of breath/worsening leg edema Condition: Stable Pertinent studies: Chest x-ray; cardiomegaly and mild vascular interstitial prominence compatible with congestion Echocardiogram; severe dilated cardiomyopathy EF 10-15% CTA chest; negative for PE cardiomegaly, interstitial edema/CHF, Left Lower extremity venous Doppler; negative for DVT Hospital course: 63 year old man with past medical history of CHF, hypertension, atrial flutter on chronic anticoagulation, CAD was admitted through emergency room with worsening shortness of breath, PND, orthopnea and left leg swelling. Initial evaluation is consistent with acute on chronic systolic congestive heart failure Admitted to the hospital symptomatically managed, evaluated by cardiology, patient underwent echocardiogram, ejection fraction 10-15%, medications optimized, the patient is comfortable no new complaints , Vital signs stable physical examination unremarkable Patient's shortness of breath significantly improved, INR is near therapeutic. Mild hyponatremia secondary to exacerbation of congestive heart failure Cardiology cleared for discharge and follow up with them in the office in 1-2 weeks Patient has h/o afib/a flutter,on Coumadin advised frequent INR checks And next INR check his in 3 days,Target INR 2-3 Discharge diagnosis; --Acute chronic combined systolic and diastolic congestive heart failure Symptoms significantly improved --Dilated cardiomyopathy; ejection fraction 10-15% Continue antiretroviral medications --History of proximal A. fib ; rate controlled, continue beta blockers And Coumadin, target INR 2-3 --Hyperkalemia; corrected --Hyponatremia; significant improvement, --Lactic acidosis; resolved --Elevated d-dimer ; negative PE, negative DVT --Chronic anticoagulation with Coumadin; --History of AICD; stable cardiology following --Moderate to severe malnutrition/hypoalbuminemia; nutrition supplements --History of peripheral vascular disease; status post right BKA --DVT Prophylaxis; patient on Coumadin Cleared by cardiology, stable at discharge Disposition: TO HOME OR SELFCARE Time spent for discharge: 32 min Core Measure Documentation - Palliative Care Palliative Care/ Comfort Measures: Not Applicable - Core Measures Any of the following diagnoses?: heart failure - Heart Failure Discharge Requirements PEDRO/ARB for LVSD if EF <40%: Yes Beta gagandeep at discharge: Yes Exam - Constitutional Vitals: Temp Pulse Resp BP Pulse Ox 98.1 F 78 18 112/75 96 05/30/18 08:54 05/30/18 10:00 05/30/18 08:54 05/30/18 08:54 05/30/18 08:54 General appearance: Present: no acute distress, well-nourished - EENT Eyes: Present: PERRL, EOM intact - Neck Neck: Present: supple, normal ROM - Respiratory Respiratory effort: normal Respiratory: bilateral: diminished, rales, negative: rhonchi, wheezing - Cardiovascular Rhythm: regular Heart Sounds: Present: S1 & S2 - Extremities Extremities: no ischemia, No edema Peripheral Pulses: within normal limits - Abdominal General gastrointestinal: Present: soft, non-tender, non-distended, normal bowel sounds - Integumentary Integumentary: Present: clear, warm - Musculoskeletal Musculoskeletal: strength equal bilaterally, generalized weakness, other (right BKA) - Psychiatric Psychiatric: appropriate mood/affect, cooperative - Neurologic Neurologic: CNII-XII intact, focal deficits Plan Activity: advance as tolerated, fall precautions Diet: other (cardiac diet) Special Instructions: physical therapy Additional Instructions: Check BMP in 2-3 days at PMDs office for sodium and potassium levels. Frequent checks of INR, next INR check in 3 days[target INR 2-3] Follow up with: SOFIYA HERRERA MD [Referring] - 3-5 Days JONAH HOFFMANN MD [Staff Physician] - 7 Days Prescriptions: Furosemide [Lasix] 20 mg PO QDAY #30 tablet oxyCODONE /ACETAMINOPHEN [Percocet 5/325 mg] 1 tab PO BID PRN #8 tablet PRN Reason: Pain, Moderate (4-6)
== END 2018-05-30 17:14 | disposition home or self-care (01) | DRG 291 ==
LOC: ED 22:25 → 4A 05-27 04:42
PROVIDERS: ADMIT Internal Medicine; ATTEND Internal Medicine
DX: I11.0 Hypertensive heart disease with heart failure (principal); E43 Unspecified severe protein-calorie malnutrition; E87.1 Hypo-osmolality and hyponatremia; I48.92 Unspecified atrial flutter; I50.43 Acute on chronic combined systolic (congestive) and diastolic (congestive) heart failure; I42.0 Dilated cardiomyopathy; F17.210 Nicotine dependence, cigarettes, uncomplicated; F17.200 Nicotine dependence, unspecified, uncomplicated; E87.5 Hyperkalemia; I25.10 Atherosclerotic heart disease of native coronary artery without angina pectoris; Z95.810 Presence of automatic (implantable) cardiac defibrillator; Z89.511 Acquired absence of right leg below knee; Z90.49 Acquired absence of other specified parts of digestive tract; Z82.49 Family history of ischemic heart disease and other diseases of the circulatory system; Z88.1 Allergy status to other antibiotic agents; Z79.82 Long term (current) use of aspirin; Z79.899 Other long term (current) drug therapy; Z79.01 Long term (current) use of anticoagulants; Z68.24 Body mass index [BMI] 24.0-24.9, adult; Z71.6 Tobacco abuse counseling
CPT/HCPCS: 36415; 71045; 71275; 80048; 80053; 82140; 82550; 82553; 83735; 83880; 84484; 85007; 85025; 85379; 85610; 85730; 93005; 93010; 93306; 94760; 96374; 96375; 99291; 99406; G0378; J1170; J1650; J1940; J2405; Q9967

== ENCOUNTER 2018-06-02 15:57 | Inpatient (IN) | payer MEDICARE ==
[2018-06-02] MEDS ORDERED: ASPIRIN PO ONE (16:34)
--- NOTE | 2018-06-02 16:49 | Emergency Department Report ---
Blank Doc - Documentation Documentation: 63 y o male presents to Ed after being d/c 3 days ago presents cc of chest pain and both legs swollen Labs ordered Rm 21
[2018-06-02 17:03] LABS: INR 1.7 (0.87-1.13)
[2018-06-02 17:06] LABS: Hemoglobin 11.8 gm/dl (11.8-15.2); Mean Corpuscular HGB Conc 33 % (32-34); Mean Corpuscular Volume 88 fl (84-94); Platelet Count 205 K/mm3 (140-440); Red Blood Count 4.09 M/mm3 (3.65-5.03); Red Cell Distribution Width 19.1 % (13.2-15.2)
[2018-06-02 17:09] LABS: BUN/Creatinine Ratio 31; Blood Urea Nitrogen 31 mg/dL (9-20); Calcium 8.4 mg/dL (8.4-10.2); Hemolysis Index 17
[2018-06-02 17:12] LABS: Basophils % (Auto) 0.6 % (0.0-1.8); Lymphocytes # (Auto) 0.5 K/mm3 (1.2-5.4); Lymphocytes % (Auto) 8.2 % (13.4-35.0); Monocytes % (Auto) 14.4 % (0.0-7.3)
[2018-06-02 17:13] LABS: Eosinophils # (Auto) 0.1 K/mm3 (0.0-0.4); Monocytes # (Auto) 0.8 K/mm3 (0.0-0.8)
[2018-06-02] MEDS ORDERED: LASIX IV ONE (17:23)
[2018-06-02] MEDS ORDERED: MORPHINE ONE (17:42)
[2018-06-02] MEDS ORDERED: MORPHINE IV ONE (17:47)
--- NOTE | 2018-06-02 18:07 | Emergency Department Report ---
ED Shortness of Breath HPI - General Chief Complaint: Chest Pain Stated Complaint: TATO Time Seen by Provider: 06/02/18 16:44 Source: patient Mode of arrival: Wheelchair Limitations: No Limitations - History of Present Illness Initial Comments: 63-year-old male of history of CHF, 10-15% EF w/ AICD, presents to ED with shortness of breath and lower extremity swelling. Patient recently discharged from this facility 3 days ago for CHF exacerbation. Patient had follow-up appointment with his community health education coordinator at [facility], and was instructed to return to the ER for readmission. Denies chest pain. Patient hypoxic room air sats in the low 90s MD Complaint: shortness of breath -: days(s) (3) Severity: moderate Consistency: constant Improves With: nothing Worsens With: exertion Known History Of: congestive heart failure Associated Symptoms: lower abdominal swelling - Related Data Home Medications Medication Instructions Recorded Confirmed Last Taken Aspirin [Aspirin BABY CHEW TAB] 81 mg PO QDAY 12/02/14 05/27/18 Unknown Warfarin [Coumadin] See Protocol PO QDAY 05/27/18 05/27/18 Unknown Previous Rx's Medication Instructions Recorded Last Taken Type Carvedilol [Coreg] 25 mg PO BID #60 tablet 02/12/15 Unknown Rx Lisinopril [Zestril TAB] 2.5 mg PO QDAY #30 tablet 02/12/15 Unknown Rx Oxycodone HCl/Acetaminophen 1 each PO Q6HR PRN #30 tablet 09/18/15 Unknown Rx [Percocet 10/325 mg] Furosemide [Lasix] 20 mg PO QDAY #30 tablet 05/30/18 Unknown Rx oxyCODONE /ACETAMINOPHEN [Percocet 1 tab PO BID PRN #8 tablet 05/30/18 Unknown Rx 5/325 mg] Allergies Allergy/AdvReac Type Severity Reaction Status Date / Time erythromycin base Allergy Unknown Verified 06/02/18 16:01 [From E-Mycin] ED Review of Systems ROS: Stated complaint: TATO Other details as noted in HPI Comment: All other systems reviewed and negative Constitutional: denies: chills, fever Respiratory: shortness of breath Cardiovascular: denies: chest pain Musculoskeletal: other (reports lower extremity edema) ED Past Medical Hx - Past Medical History Previous Medical History?: Yes Hx Hypertension: Yes Hx Congestive Heart Failure: Yes Hx Diabetes: No Hx Asthma: No Hx COPD: No Additional medical history: Defib/Pacemaker - Surgical History Hx Pacemaker: Yes Hx Internal Defibrillator: Yes Hx Cholecystectomy: Yes Hx Appendectomy: Yes Additional Surgical History: hernia surgery, right BKA - Social History Smoking Status: Never Smoker Substance Use Type: None - Medications Home Medications: Home Medications Medication Instructions Recorded Confirmed Last Taken Type Aspirin [Aspirin BABY CHEW TAB] 81 mg PO QDAY 12/02/14 05/27/18 Unknown History Carvedilol [Coreg] 25 mg PO BID #60 tablet 02/12/15 05/27/18 Unknown Rx Lisinopril [Zestril TAB] 2.5 mg PO QDAY #30 tablet 02/12/15 05/27/18 Unknown Rx Oxycodone HCl/Acetaminophen 1 each PO Q6HR PRN #30 tablet 09/18/15 05/27/18 Unknown Rx [Percocet 10/325 mg] Warfarin [Coumadin] See Protocol PO QDAY 05/27/18 05/27/18 Unknown History Furosemide [Lasix] 20 mg PO QDAY #30 tablet 05/30/18 Unknown Rx oxyCODONE /ACETAMINOPHEN [Percocet 1 tab PO BID PRN #8 tablet 05/30/18 Unknown Rx 5/325 mg] ED Physical Exam - General Limitations: No Limitations General appearance: alert, in no apparent distress - Head Head exam: Present: atraumatic, normocephalic - Eye Eye exam: Present: normal appearance - ENT ENT exam: Present: mucous membranes moist - Neck Neck exam: Present: normal inspection - Respiratory Respiratory exam: Present: normal lung sounds bilaterally, respiratory distress, other (slightly tachypneic) - Cardiovascular Cardiovascular Exam: Present: regular rate, normal rhythm - GI/Abdominal GI/Abdominal exam: Present: soft, distended, other (edema to lower abdominal wall). Absent: tenderness - Extremities Exam Extremities exam: Present: other (2+ pitting edema to lower extremities; right lower leg amputation present) - Neurological Exam Neurological exam: Present: alert, oriented X3 - Psychiatric Psychiatric exam: Present: normal affect, normal mood - Skin Skin exam: Present: warm, dry, intact, normal color ED Course Vital Signs 06/02/18 06/02/18 06/02/18 16:31 16:50 17:00 Pulse Rate 66 89 90 Respiratory 24 22 27 H Rate Blood Pressure 114/73 111/78 Blood Pressure [Left] O2 Sat by Pulse 92 96 Oximetry 06/02/18 06/02/18 06/02/18 17:16 17:38 17:45 Pulse Rate 86 86 90 Respiratory 22 23 22 Rate Blood Pressure 111/78 118/77 Blood Pressure [Left] O2 Sat by Pulse 96 93 98 Oximetry 06/02/18 06/02/18 06/02/18 18:00 18:15 18:30 Pulse Rate 87 84 87 Respiratory 23 16 15 Rate Blood Pressure 117/77 118/77 110/79 Blood Pressure [Left] O2 Sat by Pulse 97 98 95 Oximetry 06/02/18 06/02/18 06/02/18 18:45 19:00 19:11 Pulse Rate 96 H 87 99 H Respiratory 21 17 25 H Rate Blood Pressure 110/79 113/74 110/79 Blood Pressure [Left] O2 Sat by Pulse 99 90 96 Oximetry 06/02/18 06/02/18 06/02/18 19:21 19:30 19:41 Pulse Rate 95 H 91 H 95 H Respiratory 20 20 20 Rate Blood Pressure 110/79 94/60 94/60 Blood Pressure [Left] O2 Sat by Pulse Oximetry 06/02/18 06/02/18 06/02/18 19:51 20:01 20:11 Pulse Rate 95 H 93 H 94 H Respiratory 19 25 H 31 H Rate Blood Pressure 94/60 102/63 102/63 Blood Pressure [Left] O2 Sat by Pulse 94 92 Oximetry 06/02/18 06/02/18 06/02/18 20:21 20:30 20:41 Pulse Rate 87 87 88 Respiratory 16 25 H 25 H Rate Blood Pressure 102/63 85/57 85/57 Blood Pressure [Left] O2 Sat by Pulse 93 79 L 97 Oximetry 06/02/18 06/02/18 20:51 21:00 Pulse Rate 93 H 83 Respiratory 30 H 24 Rate Blood Pressure 106/66 Blood Pressure 106/66 [Left] O2 Sat by Pulse 100 99 Oximetry ED Medical Decision Making - Lab Data Result diagrams: 06/02/18 16:37 06/02/18 16:37 - EKG Data -: EKG Interpreted by Nc - EKG Data Interpretation: other (paced rhythm) - Radiology Data Radiology results: report reviewed, image reviewed - Medical Decision Making 63-year-old male with a CHF exacerbation, pulmonary edema on chest x-ray, hypoxic with O2 sats in the low 90s. IV Lasix given here in the ED. EKG shows paced rhythm. Troponin within normal limits. Patient admitted to hospitalist for further management. - Differential Diagnosis CHF, ACS, pleural effusion Critical Care Time: Yes Critical care time in (mins) excluding proc time.: 35 Critical care attestation.: If time is entered above; I have spent that time in minutes in the direct care of this critically ill patient, excluding procedure time. Critical Care Time: 35 minutes ED Disposition Clinical Impression: CHF (congestive heart failure), Hypoxia Disposition: OP ADMIT IP TO THIS HOSP Is pt being admited?: Yes Condition: Stable Time of Disposition: 18:08
--- NOTE | 2018-06-02 18:59 | XRay Report ---
PROCEDURE: XR CHEST 1V AP TECHNIQUE: Chest radiograph single view. HISTORY: Chest Pain COMPARISONS: 05/26/2018 . FINDINGS: Heart: Prominent cardiac silhouette. Mediastinum/Vessels: Prominent central vessels. Lungs/Pleural space: Patchy perihilar airspace opacities. No large effusion or pneumothorax is seen. Bony thorax: No acute osseous abnormality. Life support devices: Left AICD. IMPRESSION: Findings are suggestive of congestive heart failure with pulmonary edema. Correlate for possible superimposed infectious infiltrates. This document is electronically signed by Yanira Suggs MD., June 02 2018 06:57:41 PM ET
[2018-06-02] MEDS ORDERED: ULTRAM PO ONE (21:00)
[2018-06-02] MEDS ORDERED: ULTRAM ONE (21:01)
--- NOTE | 2018-06-02 22:29 | Event Note ---
Date: 06/02/18 See H/p in reports CHF ecacerbation Sent from Counts Include 234 Beds At [facility] for Milrinone infusion AICD Thoracic Aortic Aneurysm A Flutter
[2018-06-02] MEDS ORDERED: PERCOCET 5/325 PO PRN (22:31)
[2018-06-02] MEDS ORDERED: TYLENOL PO PRN (22:32)
[2018-06-02] MEDS ORDERED: ZOFRAN IV PRN (22:32)
[2018-06-02] MEDS ORDERED: SODIUM CHLORIDE FLUSH SYRINGE 10 ML IV PRN (22:32)
[2018-06-02] MEDS: MILRINONE-D5W 20 MG/100 ML 20 MG/100 ML BAG IV SCH (23:32)
--- NOTE | 2018-06-03 05:33 | History and Physical Report ---
CHIEF COMPLAINT: Increasing shortness of breath and lower extremity swelling. HISTORY OF PRESENT ILLNESS: A 63-year-old male, who was sent from [facility] [place] for worsening shortness of breath and lower extremity swelling. The patient has ejection fraction of 10-15% and also has AICD. The patient was recently discharged from this facility 3 days ago for CHF exacerbation. Because of the continuing shortness of breath and the patient being hypoxia on the room air, was sent back to the Emergency Room for admission and milrinone infusion for 3 days. The patient has end-stage cardiomyopathy with ejection fraction of 10-15%. The patient has class 4 NYHA symptoms. The patient has orthopnea. No chest pain. PAST MEDICAL HISTORY: 1. Hypertension, end-stage dilated cardiomyopathy with EF of 10-15%, AICD in place, paroxysmal atrial fibrillation. 2. Atrial flutter, on Coumadin therapy. 3. Right BKA. PAST SURGICAL HISTORY: Right BKA and AICD. Hernial surgery. Cholecystectomy, appendectomy, and internal defibrillator pacemaker. SOCIAL HISTORY: Does not smoke. No alcohol, no recreational drugs. FAMILY HISTORY: Hypertension. REVIEW OF SYSTEMS: Significant for worsening shortness of breath, especially on minimal exertion and lying down flat and swelling of the left lower extremity. Right BKA present. Otherwise, review of systems is negative. PHYSICAL EXAMINATION: GENERAL: Young elderly male, cooperative during examination. VITAL SIGNS: Blood pressure is 114/73, temperature is 98, pulse is 66, respiratory rate is 24, sats are 92%. HEENT: Unremarkable. Pupils equal and reactive. NECK: Supple, no lymphadenopathy, no thyromegaly. LUNGS: Clear to auscultation and percussion. Good air entry. CARDIOVASCULAR: S1, S2 heard. No gallop, no murmur, no rub. Apical impulse in left fifth intercostal space and midclavicular line. ABDOMEN: Soft and benign. No hepatosplenomegaly. No guarding, no rigidity. Hernial orifices are normal. EXTREMITIES: Good pedal pulses, 2+ pedal edema in left lower extremity. The right BKA present. SKIN: Normal. LABORATORY DATA: Significant for a white count of 5900, H and H is 11.8 and 36.0, platelet count is 205,000. Sodium is 126, chloride is 94.6, bicarbonate is 21, BUN and creatinine is 31 and 1.0. BNP is 5159. DIAGNOSTIC DATA: EKG showed atrial sensed ventricular paced rhythm with a heart rate of 90 per minute. Chest x-ray showed pulmonary vascular congestion. Chest x-ray findings are suggestive of congestive heart failure with pulmonary edema, correlate for superimposed infection or infiltrates. ASSESSMENT AND PLAN: 1. Congestive heart failure exacerbation. The patient admitted for milrinone therapy and the patient was started on milrinone and Lasix. Monitor blood pressure closely. Can go into the low blood pressure. Anticoagulation. Continue Coumadin and monitor INR. 2. Hypertension. Continue carvedilol and lisinopril. 3. Automated implantable cardioverter-defibrillator status. Supportive care. 4. Hyponatremia. Check urine osmolarity and serum osmolarity. Renal consult requested. 5.History of thoracic and aortic aneurysm without rupture 6. Atrial flutter---Paced rhythm-On Coumadin 7. Deep venous thrombosis prophylaxis, Lovenox 40 mg subcutaneous daily and gastrointestinal prophylaxis. JOB# [id number] MIRTA/PATRICIO REYEZ
[2018-06-03 06:49] LABS: Basophils # (Auto) 0.1 K/mm3 (0.0-0.1); Basophils % (Auto) 0.8 % (0.0-1.8); Eosinophils # (Auto) 0.2 K/mm3 (0.0-0.4); Eosinophils % (Auto) 2.4 % (0.0-4.3); Hematocrit 34.4 % (35.5-45.6); Hemoglobin 10.9 gm/dl (11.8-15.2); Lymphocytes # (Auto) 0.3 K/mm3 (1.2-5.4); Lymphocytes % (Auto) 4.9 % (13.4-35.0); Mean Corpuscular HGB Conc 32 % (32-34); Mean Corpuscular Volume 88 fl (84-94); Monocytes % (Auto) 14.2 % (0.0-7.3); Platelet Count 223 K/mm3 (140-440); Red Blood Count 3.89 M/mm3 (3.65-5.03); Red Cell Distribution Width 18.7 % (13.2-15.2)
[2018-06-03] MEDS: MILRINONE-D5W 20 MG/100 ML 20 MG/100 ML BAG IV SCH ×2 (07:02→19:19)
--- NOTE | 2018-06-03 07:13 | Consultation ---
History of Present Illness - Reason for Consult Consult date: 06/03/18 hyponatremia - History of Present Illness The patient is a 63 YO male with history significant for Dilated cardiomyopathy, Systolic CHF with EF 10-15%, s/p AICD and Paroxysmal A.fib who presented to [facility] ED with shortness of breath and lower extremity swelling. Patient recently discharged from this facility 3 days ago for CHF exacerbation. Patient not answering all the questions and history is limited. His sodium level was 126 on admission. Nephrology was consulted for further evaluation. Past History Past Medical History: arrhythmia, heart failure Medications and Allergies Allergies Allergy/AdvReac Type Severity Reaction Status Date / Time erythromycin base Allergy Unknown Verified 06/02/18 16:01 [From E-Mycin] Home Medications Medication Instructions Recorded Confirmed Last Taken Type Aspirin [Aspirin BABY CHEW TAB] 81 mg PO QDAY 12/02/14 06/03/18 Unknown History Carvedilol [Coreg] 25 mg PO BID #60 tablet 02/12/15 06/03/18 Unknown Rx Lisinopril [Zestril TAB] 2.5 mg PO QDAY #30 tablet 02/12/15 06/03/18 Unknown Rx Warfarin [Coumadin] See Protocol PO QDAY 05/27/18 06/03/18 Unknown History Furosemide [Lasix] 20 mg PO QDAY #30 tablet 05/30/18 06/03/18 Unknown Rx oxyCODONE /ACETAMINOPHEN [Percocet 1 tab PO BID PRN #8 tablet 05/30/18 06/03/18 Unknown Rx 5/325 mg] Active Meds: Active Medications Acetaminophen (Tylenol) 650 mg PO Q4H PRN PRN Reason: Pain MILD(1-3)/Fever >100.5/ANDERSON Aspirin (Baby Aspirin) 81 mg PO QDAY JULI Carvedilol (Coreg) 25 mg PO BID JULI Enoxaparin Sodium (Lovenox) 40 mg SUB-Q QDAY@2200 JULI Famotidine (Pepcid) 20 mg PO BID JULI Furosemide (Lasix) 20 mg PO QDAY JULI Milrinone Lactate/Dextrose (Milrinone-D5w 20 Mg/100 Ml) 20 mg in 100 mls @ 9.338 mls/hr IV TITR JULI; Protocol Last Admin: 06/03/18 07:02 Dose: 0.375 mcg/kg/min, 9.338 mls/hr Documented by: Lisinopril (Zestril) 2.5 mg PO QDAY [facility] Ondansetron HCl (Zofran) 4 mg IV Q8H PRN PRN Reason: Nausea And Vomiting Oxycodone/Acetaminophen (Percocet 5/325) 1 tab PO BID PRN PRN Reason: Pain, Moderate (4-6) Last Admin: 06/02/18 23:46 Dose: 1 tab Documented by: Sodium Chloride (Sodium Chloride Flush Syringe 10 Ml) 10 ml IV BID [facility] Sodium Chloride (Sodium Chloride Flush Syringe 10 Ml) 10 ml IV PRN PRN PRN Reason: LINE FLUSH Warfarin Sodium (Coumadin) 5 mg PO QDAY@1700 JULI; Protocol Review of Systems ROS unobtainable: due to mental status (Please see HPI.) Exam - Vital Signs Vital signs: Vital Signs Pulse Resp BP Pulse Ox 66 24 114/73 92 06/02/18 16:31 06/02/18 16:31 06/02/18 16:31 06/02/18 16:31 - General Appearance General appearance: well-developed, well-nourished, appears stated age, other (not in disterss) EENT: ATNC Neck: Present: neck supple, trachea midline Respiratory: Rales Heart: regular, S1S2, no murmurs Gastrointestinal: Present: normoactive bowel sounds. Absent: tenderness, distended Integumentary: no rash, warm and dry Neurologic: other (able to move extremities, answers very few questions) Musculoskeletal: Present: other (bilateral LE edema noted) Results - Lab Results 06/03/18 05:39 06/03/18 05:39 Most recent lab results Calcium 8.4 mg/dL (8.4-10.2) 06/02/18 16:37 Assessment and Plan 1. Hyponatremia: Hyponatremia secondary to SIADH in the setting of CHF exacerbation. Sodium level is improving. Monitor Sodium level. Fluid restriction. 2. CHF exacerbation: On Milrinone drip. Followed by Cards. 3. FEN: Volume overload, Lasix. 4. Paroxysmal atrial flutter.
[2018-06-03 07:17] LABS: Albumin 2.6 g/dL (3.9-5); BUN/Creatinine Ratio 36; Blood Urea Nitrogen 29 mg/dL (9-20); Calcium 8.3 mg/dL (8.4-10.2); Hemolysis Index 104
[2018-06-03 07:39] LABS: Alanine Aminotransferase 17 units/L (7-56)
[2018-06-03] MEDS ORDERED: LASIX PO SCH (10:00)
[2018-06-03] MEDS ORDERED: COREG PO SCH ×2 (10:00→13:09)
[2018-06-03] MEDS: PEPCID PO SCH ×2 (10:24→22:10)
[2018-06-03] MEDS: BABY ASPIRIN PO SCH (10:24)
[2018-06-03] MEDS: SODIUM CHLORIDE FLUSH SYRINGE 10 ML IV SCH ×2 (10:25→22:10)
[2018-06-03] MEDS: ZESTRIL PO SCH (10:25)
[2018-06-03 10:49] LABS: Bilirubin,Urine NEG (Negative); Blood,Urine NEG (Negative); Color,Urine Amber (Yellow); Mucus,Urine FEW /HPF; Protein,Urine <15 mg/dL mg/dL (Negative)
--- NOTE | 2018-06-03 11:36 | Consultation ---
History of Present Illness Consult date: 06/03/18 Consult reason: congestive heart failure History of present illness: This is a 63 year old man with severe dilated cardiomyopathy, chronic systolic heart failure, ejection fraction 10-15%. There is a primary cardiac defibrillator in situ. He has paroxysmal atrial flutter on warfarin for oral anticoagulation therapy. He is status post right below knee amputation. Patient was just discharged from this hospital 72hrs ago, diagnosed with CHF ex acerbation. 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 Chest x-ray consistent with pulmonary edema. Initiated on IV milrinone in the emergency department. Initial labs shows hyponatremia of 126. INR of 1.70. EKG shows a ventricular paced rhythm. Medications and Allergies Allergies Allergy/AdvReac Type Severity Reaction Status Date / Time erythromycin base Allergy Unknown Verified 06/02/18 16:01 [From E-7-bitesin] Home Medications Medication Instructions Recorded Confirmed Last Taken Type Aspirin [Aspirin BABY CHEW TAB] 81 mg PO QDAY 12/02/14 06/03/18 Unknown History Carvedilol [Coreg] 25 mg PO BID #60 tablet 02/12/15 06/03/18 Unknown Rx Lisinopril [Zestril TAB] 2.5 mg PO QDAY #30 tablet 02/12/15 06/03/18 Unknown Rx Warfarin [Coumadin] See Protocol PO QDAY 05/27/18 06/03/18 Unknown History Furosemide [Lasix] 20 mg PO QDAY #30 tablet 05/30/18 06/03/18 Unknown Rx oxyCODONE /ACETAMINOPHEN [Percocet 1 tab PO BID PRN #8 tablet 05/30/18 06/03/18 Unknown Rx 5/325 mg] Active Meds: Active Medications Acetaminophen (Tylenol) 650 mg PO Q4H PRN PRN Reason: Pain MILD(1-3)/Fever >100.5/ANDERSON Aspirin (Baby Aspirin) 81 mg PO QDAY [facility] Last Admin: 06/03/18 10:24 Dose: 81 mg Documented by: Carvedilol (Coreg) 25 mg PO BID [facility] Last Admin: 06/03/18 10:26 Dose: 25 mg Documented by: Enoxaparin Sodium (Lovenox) 40 mg SUB-Q QDAY@2200 [facility] Famotidine (Pepcid) 20 mg PO BID [facility] Last Admin: 06/03/18 10:24 Dose: 20 mg Documented by: Furosemide (Lasix) 20 mg PO QDAY [facility] Last Admin: 06/03/18 10:24 Dose: 20 mg Documented by: Milrinone Lactate/Dextrose (Milrinone-D5w 20 Mg/100 Ml) 20 mg in 100 mls @ 9.338 mls/hr IV TITR [facility]; Protocol Last Admin: 06/03/18 07:02 Dose: 0.375 mcg/kg/min, 9.338 mls/hr Documented by: Lisinopril (Zestril) 2.5 mg PO QDAY [facility] Last Admin: 06/03/18 10:25 Dose: 2.5 mg Documented by: Ondansetron HCl (Zofran) 4 mg IV Q8H PRN PRN Reason: Nausea And Vomiting Oxycodone/Acetaminophen (Percocet 5/325) 1 tab PO BID PRN PRN Reason: Pain, Moderate (4-6) Last Admin: 06/02/18 23:46 Dose: 1 tab Documented by: Sodium Chloride (Sodium Chloride Flush Syringe 10 Ml) 10 ml IV BID [facility] Last Admin: 06/03/18 10:25 Dose: 10 ml Documented by: Sodium Chloride (Sodium Chloride Flush Syringe 10 Ml) 10 ml IV PRN PRN PRN Reason: LINE FLUSH Warfarin Sodium (Coumadin) 5 mg PO QDAY@1700 [facility]; Protocol Physical Examination Vital Signs Pulse Resp BP Pulse Ox 66 24 114/73 92 06/02/18 16:31 06/02/18 16:31 06/02/18 16:31 06/02/18 16:31 General appearance: no acute distress HEENT: Positive: PERRL Cardiac: Positive: Other (paced) Lungs: Positive: Decreased Breath Sounds Results 06/03/18 05:39 06/03/18 05:39 Cardiac Enzymes 06/03/18 Range/Units 05:39 AST 44 H (5-40) units/L Coagulation 06/02/18 Range/Units 16:37 PT 21.1 H (12.2-14.9) Sec. INR 1.70 H (0.87-1.13) CBC 06/02/18 06/03/18 Range/Units 16:37 05:39 WBC 5.9 7.1 (4.5-11.0) K/mm3 RBC 4.09 3.89 (3.65-5.03) M/mm3 Hgb 11.8 10.9 L (11.8-15.2) gm/dl Hct 36.0 34.4 L (35.5-45.6) % Plt Count 205 223 (140-440) K/mm3 Lymph # 0.5 L 0.3 L (1.2-5.4) K/mm3 [place] # 0.8 1.0 H (0.0-0.8) K/mm3 Eos # 0.1 0.2 (0.0-0.4) K/mm3 Baso # 0.0 0.1 (0.0-0.1) K/mm3 Comprehensive Metabolic Panel 06/02/18 06/03/18 Range/Units 16:37 05:39 Sodium 126 L 128 L (137-145) mmol/L Potassium 4.5 4.6 (3.6-5.0) mmol/L Chloride 94.6 L 94.8 L (98-107) mmol/L Carbon Dioxide 21 L 21 L (22-30) mmol/L BUN 31 H 29 H (9-20) mg/dL Creatinine 1.0 0.8 (0.8-1.5) mg/dL Glucose 101 H 100 (75-100) mg/dL Calcium 8.4 8.3 L (8.4-10.2) mg/dL AST 44 H (5-40) units/L ALT 17 (7-56) units/L Alkaline Phosphatase 137 H (35-129) units/L Total Protein 8.1 (6.3-8.2) g/dL Albumin 2.6 L (3.9-5) g/dL Assessment and Plan Chronic systolic heart failure initiated on IV milrinone Hyponatremia Severe dilated cardiomyopathy ejection fraction 10-15%. Presence of cardiac defibrillator Paroxysmal atrial flutter on warfarin for oral anticoagulation therapy. INR 1.7 on presentation PVD s/p right below knee amputation
--- NOTE | 2018-06-03 13:46 | Progress Note ---
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 fib - Continue his metoprolol and warfarin Hyponatremia - Continue to follow DVT prophylaxis - Continue warfarin Disposition; continue inpatient care History Interval history: Patient was seen and evaluated this morning, patient was sleepy. Hospitalist Physical - Physical exam Narrative exam: Not in cardiopulmonary distress. The patient appeared well nourished and normally developed. Vital signs as documented. Head exam is unremarkable. No scleral icterus . Neck is without thyromegaly, or carotid bruits. Lungs are clear to auscultation. Cardiac exam reveals irregular rate and Rhythm. Abdominal exam reveals normal bowel sounds. Extremities are nonedematous and both femoral and pedal pulses are normal. 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 No focal weakness. - Constitutional Vitals: Temp Pulse Resp BP Pulse Ox 98.8 F 83 18 96/49 91 06/03/18 12:26 06/03/18 12:28 06/03/18 12:28 06/03/18 12:28 06/03/18 12:28 General appearance: Present: no acute distress Results - Labs CBC & Chem 7: 06/03/18 05:39 06/03/18 05:39 Labs: Laboratory Last Values WBC 7.1 K/mm3 (4.5-11.0) 06/03/18 05:39 RBC 3.89 M/mm3 (3.65-5.03) 06/03/18 05:39 Hgb 10.9 gm/dl (11.8-15.2) L 06/03/18 05:39 Hct 34.4 % (35.5-45.6) L 06/03/18 05:39 MCV 88 fl (84-94) 06/03/18 05:39 MCH 28 pg (28-32) 06/03/18 05:39 MCHC 32 % (32-34) 06/03/18 05:39 RDW 18.7 % (13.2-15.2) H 06/03/18 05:39 Plt Count 223 K/mm3 (140-440) 06/03/18 05:39 Lymph % (Auto) 4.9 % (13.4-35.0) L 06/03/18 05:39 [place] % (Auto) 14.2 % (0.0-7.3) H 06/03/18 05:39 Eos % (Auto) 2.4 % (0.0-4.3) 06/03/18 05:39 Baso % (Auto) 0.8 % (0.0-1.8) 06/03/18 05:39 Lymph # 0.3 K/mm3 (1.2-5.4) L 06/03/18 05:39 [place] # 1.0 K/mm3 (0.0-0.8) H 06/03/18 05:39 Eos # 0.2 K/mm3 (0.0-0.4) 06/03/18 05:39 Baso # 0.1 K/mm3 (0.0-0.1) 06/03/18 05:39 Seg Neutrophils % 77.7 % (40.0-70.0) H 06/03/18 05:39 Seg Neutrophils # 5.5 K/mm3 (1.8-7.7) 06/03/18 05:39 PT 21.1 Sec. (12.2-14.9) H 06/02/18 16:37 INR 1.70 (0.87-1.13) H 06/02/18 16:37 Sodium 128 mmol/L (137-145) L 06/03/18 05:39 Potassium 4.6 mmol/L (3.6-5.0) 06/03/18 05:39 Chloride 94.8 mmol/L (98-107) L 06/03/18 05:39 Carbon Dioxide 21 mmol/L (22-30) L 06/03/18 05:39 Anion Gap 17 mmol/L 06/03/18 05:39 BUN 29 mg/dL (9-20) H 06/03/18 05:39 Creatinine 0.8 mg/dL (0.8-1.5) 06/03/18 05:39 Estimated GFR > 60 ml/min 06/03/18 05:39 BUN/Creatinine Ratio 36 % 06/03/18 05:39 Glucose 100 mg/dL (75-100) 06/03/18 05:39 Hemoglobin A1c 5.0 % (4-6) 06/02/18 22:57 Osmolality 295 Mosm/kg 06/03/18 05:39 Calcium 8.3 mg/dL (8.4-10.2) L 06/03/18 05:39 Total Bilirubin 3.20 mg/dL (0.1-1.2) H 06/03/18 05:39 AST 44 units/L (5-40) H 06/03/18 05:39 ALT 17 units/L (7-56) 06/03/18 05:39 Alkaline Phosphatase 137 units/L (35-129) H 06/03/18 05:39 Troponin T 0.019 ng/mL (0.00-0.029) 06/02/18 22:57 NT-Pro-B Natriuret Pep 5159 pg/mL (0-900) H 06/02/18 17:24 Total Protein 8.1 g/dL (6.3-8.2) 06/03/18 05:39 Albumin 2.6 g/dL (3.9-5) L 06/03/18 05:39 Albumin/Globulin Ratio 0.5 % 06/03/18 05:39 Urine Color Clementina (Yellow) 06/03/18 10:25 Urine Turbidity Hazy (Clear) 06/03/18 10:25 Urine pH 5.0 (5.0-7.0) 06/03/18 10:25 Ur Specific [place] 1.010 (1.003-1.030) 06/03/18 10:25 Urine Protein <15 mg/dl mg/dL (Negative) 06/03/18 10:25 Urine Glucose (UA) Neg mg/dL (Negative) 06/03/18 10:25 Urine Ketones Neg mg/dL (Negative) 06/03/18 10:25 Urine Blood Neg (Negative) 06/03/18 10:25 Urine Nitrite Neg (Negative) 06/03/18 10:25 Urine Bilirubin Neg (Negative) 06/03/18 10:25 Urine Urobilinogen 4.0 mg/dL (<2.0) 06/03/18 10:25 Ur Leukocyte Esterase Mod (Negative) 06/03/18 10:25 Urine WBC (Auto) 15.0 /HPF (0.0-6.0) H 06/03/18 10:25 Urine RBC (Auto) 1.0 /HPF (0.0-6.0) 06/03/18 10:25 U Epithel Cells (Auto) < 1.0 /HPF (0-13.0) 06/03/18 10:25 Urine Mucus Few /HPF 06/03/18 10:25 Urine Osmolality 420 Mosm/kg 06/03/18 10:25 Urine Sodium 18 mmol/L 06/03/18 10:25 Active Medications - Current Medications Current Medications: Generic Name Dose Route Start Last Admin Trade Name Freq PRN Reason Stop Dose Admin Acetaminophen 650 mg 06/02/18 22:32 Tylenol PO Q4H PRN Pain MILD(1-3)/Fever >100.5/ANDERSON Aspirin 81 mg 06/03/18 10:00 06/03/18 10:24 Baby Aspirin PO 81 mg QDAY JULI Administration Carvedilol 12.5 mg 06/03/18 14:00 Coreg PO BID JULI Enoxaparin Sodium 40 mg 06/03/18 22:00 Lovenox SUB-Q QDAY@2200 JULI Famotidine 20 mg 06/03/18 10:00 06/03/18 10:24 Pepcid PO 20 mg BID JULI Administration Furosemide 20 mg 06/03/18 18:00 Lasix IV 0600,1800 JULI Milrinone Lactate/Dextrose 20 mg in 100 mls @ 9.338 mls/hr 06/02/18 23:00 06/03/18 07:02 Milrinone-D5w 20 Mg/100 Ml IV 0.375 mcg/kg/min TITR JULI 9.338 mls/hr Administration Protocol 0.375 MCG/KG/MIN Lisinopril 2.5 mg 06/03/18 10:00 06/03/18 10:25 Zestril PO 2.5 mg QDAY JULI Administration Ondansetron HCl 4 mg 06/02/18 22:32 Zofran IV Q8H PRN Nausea And Vomiting Oxycodone/Acetaminophen 1 tab 06/02/18 22:31 06/02/18 23:46 Percocet 5/325 PO 1 tab BID PRN Administration Pain, Moderate (4-6) Sodium Chloride 10 ml 06/03/18 10:00 06/03/18 10:25 Sodium Chloride Flush Syringe 10 Ml IV 10 ml BID JULI Administration Sodium Chloride 10 ml 06/02/18 22:32 Sodium Chloride Flush Syringe 10 Ml IV PRN PRN LINE FLUSH Warfarin Sodium 5 mg 06/03/18 17:00 Coumadin PO QDAY@1700 [facility] Protocol
[2018-06-03] MEDS: COREG PO SCH ×2 (15:31→22:09)
[2018-06-03] MEDS: COUMADIN PO SCH (16:06)
[2018-06-03] MEDS: LASIX IV SCH (17:47)
[2018-06-03] MEDS ORDERED: LOVENOX SUB-Q SCH (22:00)
--- NOTE | 2018-06-03 23:01 | Progress Note ---
Assessment and Plan Chronic systolic heart failure initiated on IV milrinone maximize medical therapy as tolerated gentle diuresis monitor creatinine Hyponatremia Severe dilated cardiomyopathy ejection fraction 10-15%. maximize medical therapy as blood pressure allows Presence of cardiac defibrillator Paroxysmal atrial flutter on warfarin for oral anticoagulation therapy. INR 1.7 on presentation. Goal INR 2-3 rate control strategy PVD s/p right below knee amputation - ASA and high intensity statin recommended Subjective Date of service: 06/04/18 Interval history: No acute events. Resting comfortably. Objective Vital Signs Temp Pulse Resp BP Pulse Ox 06/03/18 21:13 97 06/03/18 20:41 90 06/03/18 19:58 98.0 F 90 18 84/42 92 06/03/18 18:00 97.5 F L 06/03/18 17:58 93 H 20 99/49 94 06/03/18 16:00 86 06/03/18 14:32 93 06/03/18 12:28 83 18 96/49 91 06/03/18 12:26 98.8 F 06/03/18 08:59 97.5 F L 06/03/18 08:58 111 H 20 118/61 94 06/03/18 04:00 87 06/03/18 03:37 97.5 F L 89 20 114/78 85 06/02/18 23:16 98.0 F 84 18 115/78 93 - Physical Examination HEENT: Positive: PERRL Neck: Positive: neck supple, trachea midline - Labs and Meds Cardiac Enzymes 06/03/18 Range/Units 05:39 AST 44 H (5-40) units/L CBC 06/03/18 Range/Units 05:39 WBC 7.1 (4.5-11.0) K/mm3 RBC 3.89 (3.65-5.03) M/mm3 Hgb 10.9 L (11.8-15.2) gm/dl Hct 34.4 L (35.5-45.6) % Plt Count 223 (140-440) K/mm3 Lymph # 0.3 L (1.2-5.4) K/mm3 [place] # 1.0 H (0.0-0.8) K/mm3 Eos # 0.2 (0.0-0.4) K/mm3 Baso # 0.1 (0.0-0.1) K/mm3 Comprehensive Metabolic Panel 06/03/18 Range/Units 05:39 Sodium 128 L (137-145) mmol/L Potassium 4.6 (3.6-5.0) mmol/L Chloride 94.8 L (98-107) mmol/L Carbon Dioxide 21 L (22-30) mmol/L BUN 29 H (9-20) mg/dL Creatinine 0.8 (0.8-1.5) mg/dL Glucose 100 (75-100) mg/dL Calcium 8.3 L (8.4-10.2) mg/dL AST 44 H (5-40) units/L ALT 17 (7-56) units/L Alkaline Phosphatase 137 H (35-129) units/L Total Protein 8.1 (6.3-8.2) g/dL Albumin 2.6 L (3.9-5) g/dL
[2018-06-04] MEDS: LASIX IV SCH ×2 (05:52→17:31)
[2018-06-04 06:37] LABS: INR 1.63 (0.87-1.13)
[2018-06-04 07:05] LABS: BUN/Creatinine Ratio 24; Blood Urea Nitrogen 29 mg/dL (9-20); Calcium 7.9 mg/dL (8.4-10.2); Hemolysis Index 4
[2018-06-04] MEDS: MILRINONE-D5W 20 MG/100 ML 20 MG/100 ML BAG IV SCH ×2 (09:48→19:33)
[2018-06-04] MEDS: BABY ASPIRIN PO SCH (09:49)
[2018-06-04] MEDS: SODIUM CHLORIDE FLUSH SYRINGE 10 ML IV SCH ×2 (09:49→21:32)
[2018-06-04] MEDS: ZESTRIL PO SCH (09:49)
[2018-06-04] MEDS: PEPCID PO SCH ×2 (09:49→21:32)
[2018-06-04] MEDS: COREG PO SCH ×2 (09:49→21:32)
--- NOTE | 2018-06-04 12:03 | Progress Note ---
Assessment and Plan 1. Hyponatremia: Hyponatremia secondary to SIADH in the setting of CHF exacerbation. Sodium level is improving. Monitor Sodium level. Fluid restriction. 2. Acute kidney injury: Mild EMILY in the setting of CHF. Monitor renal function. Avoid nephrotoxic agents. 3. CHF exacerbation: On Milrinone drip. Followed by Cards. 4. FEN: Volume overload, Lasix. 5. Paroxysmal atrial flutter. Subjective Date of service: 06/04/18 Interval history: Patient is doing ok. Objective - Vital Signs Vital signs: Vital Signs - 12hr 06/04/18 06/04/18 05:04 07:39 Temperature 98.0 F 98.5 F Pulse Rate 90 78 Respiratory 18 16 Rate Blood Pressure 100/43 86/54 O2 Sat by Pulse 100 100 Oximetry - General Appearance General appearance: well-developed, well-nourished, appears stated age, other (not in distress) EENT: ATNC, PERRL, hearing intact, vision intact Neck: supple Respiratory: Present: Rales Cardiology: regular, S1S2, no murmurs Gastrointestinal: normoactive bowel sounds, no tenderness, no distended Integumentary: no rash, warm and dry Neurologic: no focal deficit, no asterixis Musculoskeletal: other (R BKA) - Lab 06/03/18 05:39 06/05/18 06:55 Most recent lab results Calcium 7.9 mg/dL (8.4-10.2) L 06/04/18 06:07 Phosphorus 3.30 mg/dL (2.5-4.5) 06/04/18 06:07 Magnesium 1.90 mg/dL (1.7-2.3) 06/04/18 06:07 Urine Sodium 18 mmol/L 06/03/18 10:25 Medications & Allergies - Medications Allergies/Adverse Reactions: Allergies erythromycin base [From E-Mycin] Allergy (Verified 06/02/18 16:01) Unknown Home Medications: Home Medications Medication Instructions Recorded Confirmed Last Taken Type Aspirin [Aspirin BABY CHEW TAB] 81 mg PO QDAY 12/02/14 06/03/18 Unknown History Carvedilol [Coreg] 25 mg PO BID #60 tablet 02/12/15 06/03/18 Unknown Rx Lisinopril [Zestril TAB] 2.5 mg PO QDAY #30 tablet 02/12/15 06/03/18 Unknown Rx Warfarin [Coumadin] See Protocol PO QDAY 05/27/18 06/03/18 Unknown History Furosemide [Lasix] 20 mg PO QDAY #30 tablet 05/30/18 06/03/18 Unknown Rx oxyCODONE /ACETAMINOPHEN [Percocet 1 tab PO BID PRN #8 tablet 05/30/18 06/03/18 Unknown Rx 5/325 mg] Active Medications: Generic Name Dose Route Start Last Admin Trade Name Freq PRN Reason Stop Dose Admin Acetaminophen 650 mg 06/02/18 22:32 Tylenol PO Q4H PRN Pain MILD(1-3)/Fever >100.5/ANDERSON Aspirin 81 mg 06/03/18 10:00 06/04/18 09:49 Baby Aspirin PO 81 mg QDAY JULI Administration Carvedilol 12.5 mg 06/03/18 14:00 06/04/18 09:49 Coreg PO Not Given BID JULI Famotidine 20 mg 06/03/18 10:00 06/04/18 09:49 Pepcid PO 20 mg BID JULI Administration Furosemide 20 mg 06/03/18 18:00 06/04/18 05:52 Lasix IV 20 mg 0600,1800 JULI Administration Milrinone Lactate/Dextrose 20 mg in 100 mls @ 9.338 mls/hr 06/02/18 23:00 06/04/18 09:48 Milrinone-D5w 20 Mg/100 Ml IV 0.375 mcg/kg/min TITR JULI 9.338 mls/hr Administration Protocol 0.375 MCG/KG/MIN Lisinopril 2.5 mg 06/03/18 10:00 06/04/18 09:49 Zestril PO Not Given QDAY JULI Ondansetron HCl 4 mg 06/02/18 22:32 Zofran IV Q8H PRN Nausea And Vomiting Oxycodone/Acetaminophen 1 tab 06/02/18 22:31 06/02/18 23:46 Percocet 5/325 PO 1 tab BID PRN Administration Pain, Moderate (4-6) Sodium Chloride 10 ml 06/03/18 10:00 06/04/18 09:49 Sodium Chloride Flush Syringe 10 Ml IV 10 ml BID JULI Administration Sodium Chloride 10 ml 06/02/18 22:32 Sodium Chloride Flush Syringe 10 Ml IV PRN PRN LINE FLUSH Warfarin Sodium 5 mg 06/03/18 17:00 06/03/18 16:06 Coumadin PO 5 mg QDAY@1700 [facility] Administration Protocol
--- NOTE | 2018-06-04 13:07 | Progress Note ---
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 fib - Continue his metoprolol and warfarin - Monitor INR Hyponatremia - Continue to follow DVT prophylaxis - Continue warfarin Disposition; continue inpatient care History Interval history: Patient was seen and evaluated this morning, patient didn't have any complaints. Hospitalist Physical - Physical exam Narrative exam: Not in cardiopulmonary distress. The patient appeared well nourished and normally developed. Vital signs as documented. Head exam is unremarkable. No scleral icterus . Neck is without thyromegaly, or carotid bruits. Lungs are clear to auscultation. Cardiac exam reveals irregular rate and Rhythm. Abdominal exam reveals normal bowel sounds. Extremities are nonedematous and both femoral and pedal pulses are normal. 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 No focal weakness. - Constitutional Vitals: Temp Pulse Resp BP Pulse Ox 98.5 F 78 16 86/54 98 06/04/18 07:39 06/04/18 07:39 06/04/18 07:39 06/04/18 07:39 06/04/18 10:00 General appearance: Present: no acute distress Results - Labs CBC & Chem 7: 06/03/18 05:39 06/04/18 06:07 Labs: Laboratory Last Values WBC 7.1 K/mm3 (4.5-11.0) 06/03/18 05:39 RBC 3.89 M/mm3 (3.65-5.03) 06/03/18 05:39 Hgb 10.9 gm/dl (11.8-15.2) L 06/03/18 05:39 Hct 34.4 % (35.5-45.6) L 06/03/18 05:39 MCV 88 fl (84-94) 06/03/18 05:39 MCH 28 pg (28-32) 06/03/18 05:39 MCHC 32 % (32-34) 06/03/18 05:39 RDW 18.7 % (13.2-15.2) H 06/03/18 05:39 Plt Count 223 K/mm3 (140-440) 06/03/18 05:39 Lymph % (Auto) 4.9 % (13.4-35.0) L 06/03/18 05:39 [place] % (Auto) 14.2 % (0.0-7.3) H 06/03/18 05:39 Eos % (Auto) 2.4 % (0.0-4.3) 06/03/18 05:39 Baso % (Auto) 0.8 % (0.0-1.8) 06/03/18 05:39 Lymph # 0.3 K/mm3 (1.2-5.4) L 06/03/18 05:39 [place] # 1.0 K/mm3 (0.0-0.8) H 06/03/18 05:39 Eos # 0.2 K/mm3 (0.0-0.4) 06/03/18 05:39 Baso # 0.1 K/mm3 (0.0-0.1) 06/03/18 05:39 Seg Neutrophils % 77.7 % (40.0-70.0) H 06/03/18 05:39 Seg Neutrophils # 5.5 K/mm3 (1.8-7.7) 06/03/18 05:39 PT 20.4 Sec. (12.2-14.9) H 06/04/18 06:07 INR 1.63 (0.87-1.13) H 06/04/18 06:07 Sodium 131 mmol/L (137-145) L 06/04/18 06:07 Potassium 4.4 mmol/L (3.6-5.0) 06/04/18 06:07 Chloride 98.7 mmol/L (98-107) 06/04/18 06:07 Carbon Dioxide 20 mmol/L (22-30) L 06/04/18 06:07 Anion Gap 17 mmol/L 06/04/18 06:07 BUN 29 mg/dL (9-20) H 06/04/18 06:07 Creatinine 1.2 mg/dL (0.8-1.5) 06/04/18 06:07 Estimated GFR > 60 ml/min 06/04/18 06:07 BUN/Creatinine Ratio 24 % 06/04/18 06:07 Glucose 84 mg/dL (75-100) 06/04/18 06:07 Hemoglobin A1c 5.0 % (4-6) 06/02/18 22:57 Osmolality 295 Mosm/kg 06/03/18 05:39 Calcium 7.9 mg/dL (8.4-10.2) L 06/04/18 06:07 Phosphorus 3.30 mg/dL (2.5-4.5) 06/04/18 06:07 Magnesium 1.90 mg/dL (1.7-2.3) 06/04/18 06:07 Total Bilirubin 3.20 mg/dL (0.1-1.2) H 06/03/18 05:39 AST 44 units/L (5-40) H 06/03/18 05:39 ALT 17 units/L (7-56) 06/03/18 05:39 Alkaline Phosphatase 137 units/L (35-129) H 06/03/18 05:39 Troponin T 0.019 ng/mL (0.00-0.029) 06/02/18 22:57 NT-Pro-B Natriuret Pep 5159 pg/mL (0-900) H 06/02/18 17:24 Total Protein 8.1 g/dL (6.3-8.2) 06/03/18 05:39 Albumin 2.6 g/dL (3.9-5) L 06/03/18 05:39 Albumin/Globulin Ratio 0.5 % 06/03/18 05:39 TSH 3.220 mlU/mL (0.270-4.200) 06/04/18 06:07 Urine Color Clementina (Yellow) 06/03/18 10:25 Urine Turbidity Hazy (Clear) 06/03/18 10:25 Urine pH 5.0 (5.0-7.0) 06/03/18 10:25 Ur Specific [place] 1.010 (1.003-1.030) 06/03/18 10:25 Urine Protein <15 mg/dl mg/dL (Negative) 06/03/18 10:25 Urine Glucose (UA) Neg mg/dL (Negative) 06/03/18 10:25 Urine Ketones Neg mg/dL (Negative) 06/03/18 10:25 Urine Blood Neg (Negative) 06/03/18 10:25 Urine Nitrite Neg (Negative) 06/03/18 10:25 Urine Bilirubin Neg (Negative) 06/03/18 10:25 Urine Urobilinogen 4.0 mg/dL (<2.0) 06/03/18 10:25 Ur Leukocyte Esterase Mod (Negative) 06/03/18 10:25 Urine WBC (Auto) 15.0 /HPF (0.0-6.0) H 06/03/18 10:25 Urine RBC (Auto) 1.0 /HPF (0.0-6.0) 06/03/18 10:25 U Epithel Cells (Auto) < 1.0 /HPF (0-13.0) 06/03/18 10:25 Urine Mucus Few /HPF 06/03/18 10:25 Urine Osmolality 420 Mosm/kg 06/03/18 10:25 Urine Sodium 18 mmol/L 06/03/18 10:25 Active Medications - Current Medications Current Medications: Generic Name Dose Route Start Last Admin Trade Name Freq PRN Reason Stop Dose Admin Acetaminophen 650 mg 06/02/18 22:32 Tylenol PO Q4H PRN Pain MILD(1-3)/Fever >100.5/ANDERSON Aspirin 81 mg 06/03/18 10:00 06/04/18 09:49 Baby Aspirin PO 81 mg QDAY JULI Administration Carvedilol 12.5 mg 06/03/18 14:00 06/04/18 09:49 Coreg PO Not Given BID JULI Famotidine 20 mg 06/03/18 10:00 06/04/18 09:49 Pepcid PO 20 mg BID JULI Administration Furosemide 20 mg 06/03/18 18:00 06/04/18 05:52 Lasix IV 20 mg 0600,1800 JULI Administration Milrinone Lactate/Dextrose 20 mg in 100 mls @ 9.338 mls/hr 06/02/18 23:00 06/04/18 09:48 Milrinone-D5w 20 Mg/100 Ml IV 0.375 mcg/kg/min TITR JULI 9.338 mls/hr Administration Protocol 0.375 MCG/KG/MIN Lisinopril 2.5 mg 06/03/18 10:00 06/04/18 09:49 Zestril PO Not Given QDAY JULI Ondansetron HCl 4 mg 06/02/18 22:32 Zofran IV Q8H PRN Nausea And Vomiting Oxycodone/Acetaminophen 1 tab 06/02/18 22:31 06/02/18 23:46 Percocet 5/325 PO 1 tab BID PRN Administration Pain, Moderate (4-6) Sodium Chloride 10 ml 06/03/18 10:00 06/04/18 09:49 Sodium Chloride Flush Syringe 10 Ml IV 10 ml BID JULI Administration Sodium Chloride 10 ml 06/02/18 22:32 Sodium Chloride Flush Syringe 10 Ml IV PRN PRN LINE FLUSH Warfarin Sodium 5 mg 06/03/18 17:00 06/03/18 16:06 Coumadin PO 5 mg QDAY@1700 JULI Administration Protocol Nutrition/Malnutrition Assess - Dietary Evaluation Nutrition/Malnutrition Findings: Nutrition Notes Start: 06/03/18 17:15 Freq: Status: Active Protocol: Document 06/03/18 17:15 RM (Rec: 06/03/18 17:16 RM [id number]) Nutrition Notes Need for Assessment generated from: Education Initial or Follow up Brief Note Subjective/Other Information Screened Coumadin/Vit K diet education. Pt asleep at time of visit. Nutrition Intervention Follow-Up By: 06/04/18 Additional Comments Follow Coumadin/Vit K diet education
[2018-06-04] MEDS: COUMADIN PO SCH (16:12)
[2018-06-05] MEDS: LASIX IV SCH ×2 (06:19→18:27)
[2018-06-05] MEDS: MILRINONE-D5W 20 MG/100 ML 20 MG/100 ML BAG IV SCH (06:20)
[2018-06-05 07:52] LABS: BUN/Creatinine Ratio 28; Blood Urea Nitrogen 22 mg/dL (9-20); Calcium 8.3 mg/dL (8.4-10.2); Hemolysis Index 1
[2018-06-05 08:12] LABS: INR 1.47 (0.87-1.13)
--- NOTE | 2018-06-05 09:33 | Progress Note ---
Assessment and Plan 1. Hyponatremia: Hyponatremia secondary to SIADH in the setting of CHF exacerbation. Sodium level is improving. Monitor Sodium level. Fluid restriction. 2. Acute kidney injury: Mild EMILY in the setting of CHF. Creatinine level is better. Monitor renal function. Avoid nephrotoxic agents. 3. CHF exacerbation: Was on Milrinone drip. Followed by Cards. 4. FEN: Volume overload, Lasix. 5. Paroxysmal atrial flutter. Subjective Date of service: 06/05/18 Interval history: Patient is doing ok. Objective - Vital Signs Vital signs: Vital Signs - 12hr 06/04/18 06/05/18 06/05/18 23:58 06:07 07:59 Temperature 98.4 F 98.5 F 98.5 F Pulse Rate 93 H 98 H 99 H Respiratory 20 18 18 Rate Blood Pressure 111/56 109/69 117/68 O2 Sat by Pulse 100 96 96 Oximetry - General Appearance General appearance: well-developed, appears stated age, other (not in distress) EENT: ATNC, PERRL Neck: supple Respiratory: Present: Clear to Ascultation Cardiology: regular, S1S2, no murmurs Gastrointestinal: normoactive bowel sounds, no tenderness, no distended Integumentary: no rash Neurologic: no focal deficit, no asterixis Musculoskeletal: other (right BKA, tarce LE edema) - Lab 06/03/18 05:39 06/05/18 06:55 Most recent lab results Calcium 8.3 mg/dL (8.4-10.2) L 06/05/18 06:55 Phosphorus 3.30 mg/dL (2.5-4.5) 06/04/18 06:07 Magnesium 1.90 mg/dL (1.7-2.3) 06/04/18 06:07 Urine Sodium 18 mmol/L 06/03/18 10:25 Medications & Allergies - Medications Allergies/Adverse Reactions: Allergies erythromycin base [From E-Mycin] Allergy (Verified 06/02/18 16:01) Unknown Home Medications: Home Medications Medication Instructions Recorded Confirmed Last Taken Type Aspirin [Aspirin BABY CHEW TAB] 81 mg PO QDAY 12/02/14 06/03/18 Unknown History Carvedilol [Coreg] 25 mg PO BID #60 tablet 02/12/15 06/03/18 Unknown Rx Lisinopril [Zestril TAB] 2.5 mg PO QDAY #30 tablet 02/12/15 06/03/18 Unknown Rx Warfarin [Coumadin] See Protocol PO QDAY 05/27/18 06/03/18 Unknown History Furosemide [Lasix] 20 mg PO QDAY #30 tablet 05/30/18 06/03/18 Unknown Rx oxyCODONE /ACETAMINOPHEN [Percocet 1 tab PO BID PRN #8 tablet 05/30/18 06/03/18 Unknown Rx 5/325 mg] Active Medications: Generic Name Dose Route Start Last Admin Trade Name Freq PRN Reason Stop Dose Admin Acetaminophen 650 mg 06/02/18 22:32 Tylenol PO Q4H PRN Pain MILD(1-3)/Fever >100.5/ANDERSON Aspirin 81 mg 06/03/18 10:00 06/04/18 09:49 Baby Aspirin PO 81 mg QDAY JULI Administration Carvedilol 12.5 mg 06/03/18 14:00 06/04/18 21:32 Coreg PO 12.5 mg BID JULI Administration Famotidine 20 mg 06/03/18 10:00 06/04/18 21:32 Pepcid PO 20 mg BID JULI Administration Furosemide 20 mg 06/03/18 18:00 06/05/18 06:19 Lasix IV 20 mg 0600,1800 JULI Administration Milrinone Lactate/Dextrose 20 mg in 100 mls @ 9.338 mls/hr 06/02/18 23:00 06/05/18 06:20 Milrinone-D5w 20 Mg/100 Ml IV 0.375 mcg/kg/min TITR JULI 9.338 mls/hr Administration Protocol 0.375 MCG/KG/MIN Lisinopril 2.5 mg 06/03/18 10:00 06/04/18 09:49 Zestril PO Not Given QDAY JULI Ondansetron HCl 4 mg 06/02/18 22:32 Zofran IV Q8H PRN Nausea And Vomiting Oxycodone/Acetaminophen 1 tab 06/02/18 22:31 06/02/18 23:46 Percocet 5/325 PO 1 tab BID PRN Administration Pain, Moderate (4-6) Sodium Chloride 10 ml 06/03/18 10:00 06/04/18 21:32 Sodium Chloride Flush Syringe 10 Ml IV 10 ml BID JULI Administration Sodium Chloride 10 ml 06/02/18 22:32 Sodium Chloride Flush Syringe 10 Ml IV PRN PRN LINE FLUSH Warfarin Sodium 7.5 mg 06/05/18 17:00 Coumadin PO DAILY@1700 [facility] Protocol
--- NOTE | 2018-06-05 09:49 | Progress Note ---
Assessment and Plan Chronic systolic heart failure on IV milrinone - stop today and see how the patient clinically responds maximize medical therapy as tolerated gentle diuresis monitor creatinine Hyponatremia Severe dilated cardiomyopathy ejection fraction 10-15%. maximize medical therapy as blood pressure allows Presence of cardiac defibrillator Paroxysmal atrial flutter on warfarin for oral anticoagulation therapy. INR 1.7 on presentation. Goal INR 2-3 rate control strategy PVD s/p right below knee amputation - ASA and high intensity statin recommended Subjective Date of service: 06/05/18 Interval history: No acute events. Resting comfortably. Objective Vital Signs Temp Pulse Resp BP Pulse Ox 06/05/18 07:59 98.5 F 99 H 18 117/68 96 06/05/18 06:07 98.5 F 98 H 18 109/69 96 06/04/18 23:58 98.4 F 93 H 20 111/56 100 06/04/18 21:02 98 06/04/18 20:36 97.9 F 91 H 20 114/72 100 06/04/18 19:38 78 06/04/18 17:51 97.3 F L 78 18 92/56 100 06/04/18 13:34 97.5 F L 75 16 84/48 98 06/04/18 10:00 98 - Physical Examination HEENT: Positive: PERRL Neck: Positive: neck supple, trachea midline - Labs and Meds Coagulation 06/05/18 Range/Units 06:55 PT 18.8 H (12.2-14.9) Sec. INR 1.47 H (0.87-1.13) Comprehensive Metabolic Panel 06/05/18 Range/Units 06:55 Sodium 129 L (137-145) mmol/L Potassium 4.1 (3.6-5.0) mmol/L Chloride 97.2 L (98-107) mmol/L Carbon Dioxide 23 (22-30) mmol/L BUN 22 H (9-20) mg/dL Creatinine 0.8 (0.8-1.5) mg/dL Glucose 106 H (75-100) mg/dL Calcium 8.3 L (8.4-10.2) mg/dL
[2018-06-05] MEDS: PEPCID PO SCH (10:03)
[2018-06-05] MEDS: SODIUM CHLORIDE FLUSH SYRINGE 10 ML IV SCH ×2 (10:03→21:24)
[2018-06-05] MEDS: COREG PO SCH ×3 (10:03→22:28)
[2018-06-05] MEDS: BABY ASPIRIN PO SCH (10:03)
[2018-06-05] MEDS: ZESTRIL PO SCH (10:06)
--- NOTE | 2018-06-05 13:12 | Progress Note ---
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 fib - Heart rate controlled - Continue metoprolol and warfarin - INR level trended down to 1.47, warfarin dose increased - Target INR level is 2-3 Hyponatremia - On oral fluid restriction, will monitor sodium level Generalized abdominal pain -Probably secondary to GERD -Consider abdomen series if no improvement -On famotidine Disposition; continue inpatient care. Discharged per cardiology History Interval history: Patient complaining of generalized abdominal pain after eating. Hospitalist Physical - Constitutional Vitals: Temp Pulse Resp BP Pulse Ox 98.5 F 99 H 18 117/68 95 06/05/18 07:59 06/05/18 07:59 06/05/18 07:59 06/05/18 07:59 06/05/18 10:00 General appearance: Present: no acute distress, well-nourished - EENT Eyes: Present: PERRL, EOM intact ENT: hearing intact, clear oral mucosa - Neck Neck: Present: supple - Respiratory Respiratory effort: normal Respiratory: bilateral: CTA - Cardiovascular Rhythm: regular Heart Sounds: Present: S1 & S2 - Extremities Extremity abnormal: edema (in the right stump and the left LE), other (status post right BKA) - Abdominal General gastrointestinal: soft, tender (generalized), non-distended, normal bowel sounds - Neurologic Neurologic: CNII-XII intact Results - Labs CBC & Chem 7: 06/03/18 05:39 06/05/18 06:55 Labs: Laboratory Last Values WBC 7.1 K/mm3 (4.5-11.0) 06/03/18 05:39 RBC 3.89 M/mm3 (3.65-5.03) 06/03/18 05:39 Hgb 10.9 gm/dl (11.8-15.2) L 06/03/18 05:39 Hct 34.4 % (35.5-45.6) L 06/03/18 05:39 MCV 88 fl (84-94) 06/03/18 05:39 MCH 28 pg (28-32) 06/03/18 05:39 MCHC 32 % (32-34) 06/03/18 05:39 RDW 18.7 % (13.2-15.2) H 06/03/18 05:39 Plt Count 223 K/mm3 (140-440) 06/03/18 05:39 Lymph % (Auto) 4.9 % (13.4-35.0) L 06/03/18 05:39 [place] % (Auto) 14.2 % (0.0-7.3) H 06/03/18 05:39 Eos % (Auto) 2.4 % (0.0-4.3) 06/03/18 05:39 Baso % (Auto) 0.8 % (0.0-1.8) 06/03/18 05:39 Lymph # 0.3 K/mm3 (1.2-5.4) L 06/03/18 05:39 [place] # 1.0 K/mm3 (0.0-0.8) H 06/03/18 05:39 Eos # 0.2 K/mm3 (0.0-0.4) 06/03/18 05:39 Baso # 0.1 K/mm3 (0.0-0.1) 06/03/18 05:39 Seg Neutrophils % 77.7 % (40.0-70.0) H 06/03/18 05:39 Seg Neutrophils # 5.5 K/mm3 (1.8-7.7) 06/03/18 05:39 PT 18.8 Sec. (12.2-14.9) H 06/05/18 06:55 INR 1.47 (0.87-1.13) H 06/05/18 06:55 Sodium 129 mmol/L (137-145) L 06/05/18 06:55 Potassium 4.1 mmol/L (3.6-5.0) 06/05/18 06:55 Chloride 97.2 mmol/L (98-107) L 06/05/18 06:55 Carbon Dioxide 23 mmol/L (22-30) 06/05/18 06:55 Anion Gap 13 mmol/L 06/05/18 06:55 BUN 22 mg/dL (9-20) H 06/05/18 06:55 Creatinine 0.8 mg/dL (0.8-1.5) 06/05/18 06:55 Estimated GFR > 60 ml/min 06/05/18 06:55 BUN/Creatinine Ratio 28 % 06/05/18 06:55 Glucose 106 mg/dL (75-100) H 06/05/18 06:55 Hemoglobin A1c 5.0 % (4-6) 06/02/18 22:57 Osmolality 295 Mosm/kg 06/03/18 05:39 Calcium 8.3 mg/dL (8.4-10.2) L 06/05/18 06:55 Phosphorus 3.30 mg/dL (2.5-4.5) 06/04/18 06:07 Magnesium 1.90 mg/dL (1.7-2.3) 06/04/18 06:07 Total Bilirubin 3.20 mg/dL (0.1-1.2) H 06/03/18 05:39 AST 44 units/L (5-40) H 06/03/18 05:39 ALT 17 units/L (7-56) 06/03/18 05:39 Alkaline Phosphatase 137 units/L (35-129) H 06/03/18 05:39 Troponin T 0.019 ng/mL (0.00-0.029) 06/02/18 22:57 NT-Pro-B Natriuret Pep 5159 pg/mL (0-900) H 06/02/18 17:24 Total Protein 8.1 g/dL (6.3-8.2) 06/03/18 05:39 Albumin 2.6 g/dL (3.9-5) L 06/03/18 05:39 Albumin/Globulin Ratio 0.5 % 06/03/18 05:39 TSH 3.220 mlU/mL (0.270-4.200) 06/04/18 06:07 Urine Color Clementina (Yellow) 06/03/18 10:25 Urine Turbidity Hazy (Clear) 06/03/18 10:25 Urine pH 5.0 (5.0-7.0) 06/03/18 10:25 Ur Specific [place] 1.010 (1.003-1.030) 06/03/18 10:25 Urine Protein <15 mg/dl mg/dL (Negative) 06/03/18 10:25 Urine Glucose (UA) Neg mg/dL (Negative) 06/03/18 10:25 Urine Ketones Neg mg/dL (Negative) 06/03/18 10:25 Urine Blood Neg (Negative) 06/03/18 10:25 Urine Nitrite Neg (Negative) 06/03/18 10:25 Urine Bilirubin Neg (Negative) 06/03/18 10:25 Urine Urobilinogen 4.0 mg/dL (<2.0) 06/03/18 10:25 Ur Leukocyte Esterase Mod (Negative) 06/03/18 10:25 Urine WBC (Auto) 15.0 /HPF (0.0-6.0) H 06/03/18 10:25 Urine RBC (Auto) 1.0 /HPF (0.0-6.0) 06/03/18 10:25 U Epithel Cells (Auto) < 1.0 /HPF (0-13.0) 06/03/18 10:25 Urine Mucus Few /HPF 06/03/18 10:25 Urine Osmolality 420 Mosm/kg 06/03/18 10:25 Urine Sodium 18 mmol/L 06/03/18 10:25 Active Medications - Current Medications Current Medications: Generic Name Dose Route Start Last Admin Trade Name Freq PRN Reason Stop Dose Admin Acetaminophen 650 mg 06/02/18 22:32 06/05/18 10:10 Tylenol PO 650 mg Q4H PRN Administration Pain MILD(1-3)/Fever >100.5/ANDERSON Aspirin 81 mg 06/03/18 10:00 06/05/18 10:03 Baby Aspirin PO 81 mg QDAY JULI Administration Carvedilol 12.5 mg 06/03/18 14:00 06/05/18 10:03 Coreg PO 12.5 mg BID JULI Administration Famotidine 10 mg 06/05/18 22:00 Pepcid IV BID JULI Furosemide 20 mg 06/03/18 18:00 06/05/18 06:19 Lasix IV 20 mg 0600,1800 JULI Administration Lisinopril 2.5 mg 06/03/18 10:00 06/05/18 10:06 Zestril PO 2.5 mg QDAY JULI Administration Ondansetron HCl 4 mg 06/02/18 22:32 Zofran IV Q8H PRN Nausea And Vomiting Oxycodone/Acetaminophen 1 tab 06/05/18 10:03 Percocet 5/325 PO Q4H PRN Pain, Moderate (4-6) Sodium Chloride 10 ml 06/03/18 10:00 06/05/18 10:03 Sodium Chloride Flush Syringe 10 Ml IV 10 ml BID JULI Administration Sodium Chloride 10 ml 06/02/18 22:32 Sodium Chloride Flush Syringe 10 Ml IV PRN PRN LINE FLUSH Warfarin Sodium 7.5 mg 06/05/18 17:00 Coumadin PO DAILY@1700 [facility] Protocol Nutrition/Malnutrition Assess - Dietary Evaluation Nutrition/Malnutrition Findings: Nutrition Notes Start: 06/03/18 17:15 Freq: Status: Active Protocol: Document 06/04/18 15:47 RM (Rec: 06/04/18 15:48 RM [id number]) Nutrition Notes Initial or Follow up Brief Note Subjective/Other Information Pt asleep at time of visit. Nutrition Intervention Follow-Up By: 06/06/18 Additional Comments Follow for Coumadin/Vit K diet education
[2018-06-05] MEDS: COUMADIN PO SCH (18:23)
[2018-06-05] MEDS: PEPCID IV SCH (21:23)
[2018-06-06] MEDS: LASIX IV SCH ×2 (06:36→17:50)
[2018-06-06 06:58] LABS: INR 1.53 (0.87-1.13)
[2018-06-06 07:03] LABS: BUN/Creatinine Ratio 29; Blood Urea Nitrogen 20 mg/dL (9-20); Calcium 8.1 mg/dL (8.4-10.2); Hemolysis Index 2
--- NOTE | 2018-06-06 08:42 | Progress Note ---
Assessment and Plan 1. Hyponatremia: Hyponatremia secondary to SIADH in the setting of CHF exacerbation. Sodium level is better. Monitor Sodium level. Fluid restriction. 2. Acute kidney injury: Mild EMILY in the setting of CHF. Creatinine level is better. Monitor renal function. Avoid nephrotoxic agents. 3. CHF exacerbation: Was on Milrinone drip. Followed by Cards. 4. FEN: Volume overload, increase Lasix. 5. Paroxysmal atrial flutter. Subjective Date of service: 06/06/18 Interval history: Patient is doing ok. Objective - Vital Signs Vital signs: Vital Signs - 12hr 06/05/18 06/05/18 06/05/18 20:44 21:17 23:46 Temperature 97.9 F 98.0 F Pulse Rate 78 78 Respiratory 20 22 Rate Blood Pressure 92/57 96/52 Blood Pressure [Left] O2 Sat by Pulse 97 99 98 Oximetry 06/06/18 06/06/18 04:51 08:30 Temperature 98.1 F 97.9 F Pulse Rate 86 95 H Respiratory 20 20 Rate Blood Pressure 97/65 Blood Pressure 112/68 [Left] O2 Sat by Pulse 98 97 Oximetry - General Appearance General appearance: well-developed, well-nourished, appears stated age, other (not in distress) EENT: ATNC Neck: supple Respiratory: Present: Rales Cardiology: regular, S1S2, no murmurs Gastrointestinal: normoactive bowel sounds, no tenderness, no distended Integumentary: no rash Neurologic: no focal deficit, no asterixis Musculoskeletal: other (1+ edema of L LE, R BKA) - Lab 06/03/18 05:39 06/06/18 06:10 Most recent lab results Calcium 8.1 mg/dL (8.4-10.2) L 06/06/18 06:10 Phosphorus 3.30 mg/dL (2.5-4.5) 06/04/18 06:07 Magnesium 1.90 mg/dL (1.7-2.3) 06/04/18 06:07 Urine Sodium 18 mmol/L 06/03/18 10:25 Medications & Allergies - Medications Allergies/Adverse Reactions: Allergies erythromycin base [From E-Mycin] Allergy (Verified 06/02/18 16:01) Unknown Home Medications: Home Medications Medication Instructions Recorded Confirmed Last Taken Type Aspirin [Aspirin BABY CHEW TAB] 81 mg PO QDAY 10/11/15 04/12/19 Unknown History Carvedilol [Coreg] 25 mg PO BID #60 tablet 02/12/15 06/03/18 Unknown Rx Lisinopril [Zestril TAB] 2.5 mg PO QDAY #30 tablet 02/12/15 06/03/18 Unknown Rx Warfarin [Coumadin] See Protocol PO QDAY 05/27/18 06/03/18 Unknown History Furosemide [Lasix] 20 mg PO QDAY #30 tablet 05/30/18 06/03/18 Unknown Rx oxyCODONE /ACETAMINOPHEN [Percocet 1 tab PO BID PRN #8 tablet 05/30/18 06/03/18 Unknown Rx 5/325 mg] Active Medications: Generic Name Dose Route Start Last Admin Trade Name Freq PRN Reason Stop Dose Admin Acetaminophen 650 mg 06/02/18 22:32 06/05/18 10:10 Tylenol PO 650 mg Q4H PRN Administration Pain MILD(1-3)/Fever >100.5/ANDERSON Aspirin 81 mg 06/03/18 10:00 06/05/18 10:03 Baby Aspirin PO 81 mg QDAY JULI Administration Carvedilol 12.5 mg 06/03/18 14:00 06/05/18 22:28 Coreg PO Not Given BID JULI Famotidine 10 mg 06/05/18 22:00 06/05/18 21:23 Pepcid IV 10 mg BID JULI Administration Furosemide 20 mg 06/03/18 18:00 06/06/18 06:36 Lasix IV 20 mg 0600,1800 JULI Administration Lisinopril 2.5 mg 06/03/18 10:00 06/05/18 10:06 Zestril PO 2.5 mg QDAY JULI Administration Ondansetron HCl 4 mg 06/02/18 22:32 Zofran IV Q8H PRN Nausea And Vomiting Oxycodone/Acetaminophen 1 tab 06/05/18 10:03 Percocet 5/325 PO Q4H PRN Pain, Moderate (4-6) Sodium Chloride 10 ml 06/03/18 10:00 06/05/18 21:24 Sodium Chloride Flush Syringe 10 Ml IV 10 ml BID JULI Administration Sodium Chloride 10 ml 06/02/18 22:32 Sodium Chloride Flush Syringe 10 Ml IV PRN PRN LINE FLUSH Warfarin Sodium 7.5 mg 06/05/18 17:00 06/05/18 18:23 Coumadin PO 7.5 mg DAILY@1700 [facility] Administration Protocol
[2018-06-06] MEDS: COREG PO SCH ×2 (09:44→22:49)
[2018-06-06] MEDS: BABY ASPIRIN PO SCH (09:44)
[2018-06-06] MEDS: SODIUM CHLORIDE FLUSH SYRINGE 10 ML IV SCH ×2 (09:45→22:51)
[2018-06-06] MEDS: ZESTRIL PO SCH (09:45)
[2018-06-06] MEDS: PEPCID IV SCH ×2 (09:45→22:48)
[2018-06-06] MEDS ORDERED: LASIX IV SCH (11:34)
--- NOTE | 2018-06-06 11:58 | Progress Note ---
Assessment and Plan Chronic systolic heart failure Hyponatremia Severe dilated cardiomyopathy ejection fraction 10-15%. Presence of cardiac defibrillator Paroxysmal atrial flutter on warfarin for oral anticoagulation therapy. INR 1.7 on presentation PVD s/p right below knee amputation Continue medical therapy for chronic systolic heart failure and paroxysmal atrial flutter. Advised sodium/fluid restriction. Subjective Date of service: 06/06/18 Interval history: Patient reports his breathing is better. Objective Vital Signs Temp Pulse Resp BP BP Pulse Ox 06/06/18 09:12 96 06/06/18 08:30 97.9 F 95 H 20 112/68 97 06/06/18 04:51 98.1 F 86 20 97/65 98 06/05/18 23:46 98.0 F 78 22 96/52 98 06/05/18 21:17 99 06/05/18 20:44 97.9 F 78 20 92/57 97 06/05/18 20:20 78 06/05/18 18:08 98.1 F 82 16 99/55 99 06/05/18 12:07 99.0 F 84 18 110/58 97 - Physical Examination General: No Apparent Distress HEENT: Positive: PERRL Neck: Positive: trachea midline Cardiac: Positive: Other (paced) - Labs and Meds Coagulation 06/06/18 Range/Units 06:10 PT 19.4 H (12.2-14.9) Sec. INR 1.53 H (0.87-1.13) Comprehensive Metabolic Panel 06/06/18 Range/Units 06:10 Sodium 130 L (137-145) mmol/L Potassium 4.2 (3.6-5.0) mmol/L Chloride 97.5 L (98-107) mmol/L Carbon Dioxide 24 (22-30) mmol/L BUN 20 (9-20) mg/dL Creatinine 0.7 L (0.8-1.5) mg/dL Glucose 78 (75-100) mg/dL Calcium 8.1 L (8.4-10.2) mg/dL
--- NOTE | 2018-06-06 12:54 | Progress Note ---
Assessment and Plan - Patient Problems (1) HTN (hypertension) Current Visit: Yes Status: Acute Plan to address problem: At present blood pressure optimal control. (2) CHF (congestive heart failure) Current Visit: Yes Status: Acute Plan to address problem: Congestive heart failure ejection fraction 10-15%. Patient still has bilateral crackles lower extremity edema. We'll continue current diuresis with milrinone Lasix PEDRO inhibitor. (3) Hypoxia Current Visit: Yes Status: Acute Plan to address problem: Patient still has hypoxemia. I think some of this may be due to COPD versus asthma. Will add nebulizer (4) Atrial flutter Current Visit: No Status: Acute Plan to address problem: Agent with atrial fibrillation currently subtherapeutic with Coumadin. Continue metoprolol. Rate very well controlled. History Interval history: Patient currently in bed complains of some shortness of breath. On exam today patient noted to have significant wheezing despite bilateral lower extremity crackles. Hospitalist Physical - Constitutional Vitals: Temp Pulse Resp BP Pulse Ox 97.9 F 95 H 20 112/68 96 06/06/18 08:30 06/06/18 08:30 06/06/18 08:30 06/06/18 08:30 06/06/18 09:12 General appearance: Present: no acute distress, mild distress, well-nourished - EENT Eyes: Present: PERRL, EOM intact. Absent: scleral icterus, conjunctival injection, exopthalmos, miosis, mydriasis, discharge ENT: hearing intact, clear oral mucosa, dentition normal, no oropharyngeal erythema, no poor dentition, no thrush - Neck Neck: Present: supple, normal ROM. Absent: enlarged thyroid, masses or JVD, cervical LAD - Respiratory Respiratory: bilateral: CTA, wheezing - Cardiovascular Rhythm: irregularly irregular Heart Sounds: Present: systolic murmur - Extremities Extremities: no ischemia, pulses intact, pulses symmetrical Extremity abnormal: edema, other (right aka) - Abdominal General gastrointestinal: soft, non-tender, non-distended, normal bowel sounds - Integumentary Integumentary: Present: warm, dry - Psychiatric Psychiatric: appropriate mood/affect, intact judgment & insight - Neurologic Neurologic: CNII-XII intact, no focal deficits Results - Labs CBC & Chem 7: 06/03/18 05:39 06/06/18 06:10 Labs: Laboratory Last Values WBC 7.1 K/mm3 (4.5-11.0) 06/03/18 05:39 RBC 3.89 M/mm3 (3.65-5.03) 06/03/18 05:39 Hgb 10.9 gm/dl (11.8-15.2) L 06/03/18 05:39 Hct 34.4 % (35.5-45.6) L 06/03/18 05:39 MCV 88 fl (84-94) 06/03/18 05:39 MCH 28 pg (28-32) 06/03/18 05:39 MCHC 32 % (32-34) 06/03/18 05:39 RDW 18.7 % (13.2-15.2) H 06/03/18 05:39 Plt Count 223 K/mm3 (140-440) 06/03/18 05:39 Lymph % (Auto) 4.9 % (13.4-35.0) L 06/03/18 05:39 [place] % (Auto) 14.2 % (0.0-7.3) H 06/03/18 05:39 Eos % (Auto) 2.4 % (0.0-4.3) 06/03/18 05:39 Baso % (Auto) 0.8 % (0.0-1.8) 06/03/18 05:39 Lymph # 0.3 K/mm3 (1.2-5.4) L 06/03/18 05:39 [place] # 1.0 K/mm3 (0.0-0.8) H 06/03/18 05:39 Eos # 0.2 K/mm3 (0.0-0.4) 06/03/18 05:39 Baso # 0.1 K/mm3 (0.0-0.1) 06/03/18 05:39 Seg Neutrophils % 77.7 % (40.0-70.0) H 06/03/18 05:39 Seg Neutrophils # 5.5 K/mm3 (1.8-7.7) 06/03/18 05:39 PT 19.4 Sec. (12.2-14.9) H 06/06/18 06:10 INR 1.53 (0.87-1.13) H 06/06/18 06:10 Sodium 130 mmol/L (137-145) L 06/06/18 06:10 Potassium 4.2 mmol/L (3.6-5.0) 06/06/18 06:10 Chloride 97.5 mmol/L (98-107) L 06/06/18 06:10 Carbon Dioxide 24 mmol/L (22-30) 06/06/18 06:10 Anion Gap 13 mmol/L 06/06/18 06:10 BUN 20 mg/dL (9-20) 06/06/18 06:10 Creatinine 0.7 mg/dL (0.8-1.5) L 06/06/18 06:10 Estimated GFR > 60 ml/min 06/06/18 06:10 BUN/Creatinine Ratio 29 % 06/06/18 06:10 Glucose 78 mg/dL (75-100) 06/06/18 06:10 Hemoglobin A1c 5.0 % (4-6) 06/02/18 22:57 Osmolality 295 Mosm/kg 06/03/18 05:39 Calcium 8.1 mg/dL (8.4-10.2) L 06/06/18 06:10 Phosphorus 3.30 mg/dL (2.5-4.5) 06/04/18 06:07 Magnesium 1.90 mg/dL (1.7-2.3) 06/04/18 06:07 Total Bilirubin 3.20 mg/dL (0.1-1.2) H 06/03/18 05:39 AST 44 units/L (5-40) H 06/03/18 05:39 ALT 17 units/L (7-56) 06/03/18 05:39 Alkaline Phosphatase 137 units/L (35-129) H 06/03/18 05:39 Troponin T 0.019 ng/mL (0.00-0.029) 06/02/18 22:57 NT-Pro-B Natriuret Pep 5159 pg/mL (0-900) H 06/02/18 17:24 Total Protein 8.1 g/dL (6.3-8.2) 06/03/18 05:39 Albumin 2.6 g/dL (3.9-5) L 06/03/18 05:39 Albumin/Globulin Ratio 0.5 % 06/03/18 05:39 TSH 3.220 mlU/mL (0.270-4.200) 06/04/18 06:07 Urine Color [place] (Yellow) 06/03/18 10:25 Urine Turbidity Hazy (Clear) 06/03/18 10:25 Urine pH 5.0 (5.0-7.0) 06/03/18 10:25 Ur Specific [place] 1.010 (1.003-1.030) 06/03/18 10:25 Urine Protein <15 mg/dl mg/dL (Negative) 06/03/18 10:25 Urine Glucose (UA) Neg mg/dL (Negative) 06/03/18 10:25 Urine Ketones Neg mg/dL (Negative) 06/03/18 10:25 Urine Blood Neg (Negative) 06/03/18 10:25 Urine Nitrite Neg (Negative) 06/03/18 10:25 Urine Bilirubin Neg (Negative) 06/03/18 10:25 Urine Urobilinogen 4.0 mg/dL (<2.0) 06/03/18 10:25 Ur Leukocyte Esterase Mod (Negative) 06/03/18 10:25 Urine WBC (Auto) 15.0 /HPF (0.0-6.0) H 06/03/18 10:25 Urine RBC (Auto) 1.0 /HPF (0.0-6.0) 06/03/18 10:25 U Epithel Cells (Auto) < 1.0 /HPF (0-13.0) 06/03/18 10:25 Urine Mucus Few /HPF 06/03/18 10:25 Urine Osmolality 420 Mosm/kg 06/03/18 10:25 Urine Sodium 18 mmol/L 06/03/18 10:25 - Imaging and Cardiology Chest x-ray: report reviewed, image reviewed Active Medications - Current Medications Current Medications: Generic Name Dose Route Start Last Admin Trade Name Freq PRN Reason Stop Dose Admin Acetaminophen 650 mg 06/02/18 22:32 06/05/18 10:10 Tylenol PO 650 mg Q4H PRN Administration Pain MILD(1-3)/Fever >100.5/ANDERSON Aspirin 81 mg 06/03/18 10:00 06/06/18 09:44 Baby Aspirin PO 81 mg QDAY JULI Administration Carvedilol 12.5 mg 06/03/18 14:00 06/06/18 09:44 Coreg PO 12.5 mg BID JULI Administration Famotidine 10 mg 06/05/18 22:00 06/06/18 09:45 Pepcid IV 10 mg BID JULI Administration Furosemide 40 mg 06/06/18 18:00 Lasix IV 0600,1800 JULI Lisinopril 2.5 mg 06/03/18 10:00 06/06/18 09:45 Zestril PO 2.5 mg QDAY JULI Administration Ondansetron HCl 4 mg 06/02/18 22:32 Zofran IV Q8H PRN Nausea And Vomiting Oxycodone/Acetaminophen 1 tab 06/05/18 10:03 Percocet 5/325 PO Q4H PRN Pain, Moderate (4-6) Sodium Chloride 10 ml 06/03/18 10:00 06/06/18 09:45 Sodium Chloride Flush Syringe 10 Ml IV 10 ml BID JULI Administration Sodium Chloride 10 ml 06/02/18 22:32 Sodium Chloride Flush Syringe 10 Ml IV PRN PRN LINE FLUSH Warfarin Sodium 7.5 mg 06/05/18 17:00 06/05/18 18:23 Coumadin PO 7.5 mg DAILY@1700 JULI Administration Protocol Nutrition/Malnutrition Assess - Dietary Evaluation Nutrition/Malnutrition Findings: Nutrition Notes Start: 06/03/18 17:15 Freq: Status: Active Protocol: Document 06/04/18 15:47 RM (Rec: 06/04/18 15:48 RM [id number]) Nutrition Notes Initial or Follow up Brief Note Subjective/Other Information Pt asleep at time of visit. Nutrition Intervention Follow-Up By: 06/06/18 Additional Comments Follow for Coumadin/Vit K diet education
[2018-06-06] MEDS: PROVENTIL IH SCH ×2 (13:58→20:09)
[2018-06-06] MEDS: COUMADIN PO SCH (17:49)
[2018-06-06] MEDS: PERCOCET 5/325 PO PRN (22:50)
[2018-06-07] MEDS: PROVENTIL IH SCH ×4 (01:56→20:59)
[2018-06-07] MEDS: LASIX IV SCH ×2 (06:08→17:34)
[2018-06-07] MEDS: PERCOCET 5/325 PO PRN (06:11)
[2018-06-07 06:35] LABS: INR 1.75 (0.87-1.13)
[2018-06-07 06:40] LABS: BUN/Creatinine Ratio 29; Blood Urea Nitrogen 20 mg/dL (9-20); Hemolysis Index 10
--- NOTE | 2018-06-07 08:36 | Progress Note ---
Assessment and Plan 1. Hyponatremia: Hyponatremia secondary to SIADH in the setting of CHF exacerbation. Sodium level is better. Monitor Sodium level. Fluid restriction. 2. Acute kidney injury: Mild EMILY in the setting of CHF. Creatinine level is better. Monitor renal function. Avoid nephrotoxic agents. 3. CHF exacerbation: Was on Milrinone drip. Followed by Cards. 4. FEN: Volume overload, continue Lasix. Replete Mg. 5. Paroxysmal atrial flutter. Subjective Date of service: 06/07/18 Interval history: Patient is doing ok. Objective - Vital Signs Vital signs: Vital Signs - 12hr 06/06/18 06/06/18 06/07/18 22:49 23:50 01:57 Temperature 98.0 F Pulse Rate 78 91 H Pulse Rate [ 80 Anterior Bilateral Throughout] Respiratory 20 Rate Respiratory 18 Rate [Anterior Bilateral Throughout] Blood Pressure 108/71 103/71 O2 Sat by Pulse 92 Oximetry 06/07/18 06/07/18 06/07/18 02:13 04:14 08:09 Temperature 98.0 F 98.9 F Pulse Rate 70 75 Pulse Rate [ 85 Anterior Bilateral Throughout] Respiratory 18 18 Rate Respiratory 18 Rate [Anterior Bilateral Throughout] Blood Pressure 101/66 96/68 O2 Sat by Pulse 93 96 Oximetry 06/07/18 06/07/18 08:14 08:17 Temperature Pulse Rate Pulse Rate [ 73 Anterior Bilateral Throughout] Respiratory Rate Respiratory 19 Rate [Anterior Bilateral Throughout] Blood Pressure O2 Sat by Pulse 93 Oximetry - General Appearance General appearance: well-developed, appears stated age, other (not in distress) EENT: ATNC, PERRL, hearing intact, vision intact Neck: supple Respiratory: Present: Clear to Ascultation Cardiology: regular, S1S2, no murmurs Gastrointestinal: normoactive bowel sounds, no tenderness, no distended Integumentary: no rash Neurologic: no focal deficit, no asterixis Musculoskeletal: other (1+ edema of L LE, R BKA) - Lab 06/03/18 05:39 06/07/18 05:51 Most recent lab results Calcium 8.0 mg/dL (8.4-10.2) L 06/07/18 05:51 Phosphorus 3.30 mg/dL (2.5-4.5) 06/04/18 06:07 Magnesium 1.50 mg/dL (1.7-2.3) L 06/07/18 05:51 Urine Sodium 18 mmol/L 06/03/18 10:25 Medications & Allergies - Medications Allergies/Adverse Reactions: Allergies erythromycin base [From E-Mycin] Allergy (Verified 06/02/18 16:01) Unknown Home Medications: Home Medications Medication Instructions Recorded Confirmed Last Taken Type Aspirin [Aspirin BABY CHEW TAB] 81 mg PO QDAY 12/02/14 06/03/18 Unknown History Carvedilol [Coreg] 25 mg PO BID #60 tablet 02/12/15 06/03/18 Unknown Rx Lisinopril [Zestril TAB] 2.5 mg PO QDAY #30 tablet 02/12/15 06/03/18 Unknown Rx Warfarin [Coumadin] See Protocol PO QDAY 05/27/18 06/03/18 Unknown History Furosemide [Lasix] 20 mg PO QDAY #30 tablet 05/30/18 06/03/18 Unknown Rx oxyCODONE /ACETAMINOPHEN [Percocet 1 tab PO BID PRN #8 tablet 05/30/18 06/03/18 Unknown Rx 5/325 mg] Active Medications: Generic Name Dose Route Start Last Admin Trade Name Freq PRN Reason Stop Dose Admin Acetaminophen 650 mg 06/02/18 22:32 06/05/18 10:10 Tylenol PO 650 mg Q4H PRN Administration Pain MILD(1-3)/Fever >100.5/ANDERSON Albuterol 2.5 mg 06/06/18 14:00 06/07/18 08:14 Proventil IH 2.5 mg Q6HRT JULI Administration Aspirin 81 mg 06/03/18 10:00 06/06/18 09:44 Baby Aspirin PO 81 mg QDAY JULI Administration Carvedilol 12.5 mg 06/03/18 14:00 06/06/18 22:49 Coreg PO 12.5 mg BID JULI Administration Famotidine 10 mg 06/05/18 22:00 06/06/18 22:48 Pepcid IV 10 mg BID JULI Administration Furosemide 40 mg 06/06/18 18:00 06/07/18 06:08 Lasix IV 40 mg 0600,1800 JULI Administration Lisinopril 2.5 mg 06/03/18 10:00 06/06/18 09:45 Zestril PO 2.5 mg QDAY JULI Administration Ondansetron HCl 4 mg 06/02/18 22:32 Zofran IV Q8H PRN Nausea And Vomiting Oxycodone/Acetaminophen 1 tab 06/05/18 10:03 06/07/18 06:11 Percocet 5/325 PO 1 tab Q4H PRN Administration Pain, Moderate (4-6) Sodium Chloride 10 ml 06/03/18 10:00 06/06/18 22:51 Sodium Chloride Flush Syringe 10 Ml IV 10 ml BID JULI Administration Sodium Chloride 10 ml 06/02/18 22:32 Sodium Chloride Flush Syringe 10 Ml IV PRN PRN LINE FLUSH Warfarin Sodium 7.5 mg 06/05/18 17:00 06/06/18 17:49 Coumadin PO 7.5 mg DAILY@1700 JULI Administration Protocol
[2018-06-07] MEDS ORDERED: MAGNESIUM SULFATE 2GM/50ML 2 GM/50 ML BAG IV ONE (09:00)
[2018-06-07] MEDS: ZESTRIL PO SCH (09:35)
[2018-06-07] MEDS: PEPCID IV SCH (09:35)
[2018-06-07] MEDS: COREG PO SCH ×2 (09:35→22:55)
[2018-06-07] MEDS: MAG-OX PO SCH ×2 (09:35→22:55)
[2018-06-07] MEDS: BABY ASPIRIN PO SCH (09:36)
[2018-06-07] MEDS: SODIUM CHLORIDE FLUSH SYRINGE 10 ML IV SCH ×2 (09:36→22:56)
--- NOTE | 2018-06-07 09:42 | Progress Note ---
Assessment and Plan Chronic systolic heart failure Hyponatremia Severe dilated cardiomyopathy ejection fraction 10-15%. Presence of cardiac defibrillator Paroxysmal atrial flutter on warfarin for oral anticoagulation therapy. INR 1.7 on presentation PVD s/p right below knee amputation Maintain electrolytes. Continue medical therapy for chronic systolic heart failure and paroxysmal atrial flutter. Advised sodium/fluid restriction. Subjective Date of service: 06/07/18 Interval history: Patient has no complaints. Objective Vital Signs Temp Pulse Pulse Pulse Resp Resp Resp 06/07/18 08:33 80 20 06/07/18 08:17 06/07/18 08:14 73 19 06/07/18 08:09 98.9 F 75 18 06/07/18 04:14 98.0 F 70 18 06/07/18 02:13 85 18 06/07/18 01:57 80 18 06/06/18 23:50 98.0 F 91 H 20 06/06/18 22:49 78 06/06/18 20:24 79 18 06/06/18 20:18 98.0 F 75 20 06/06/18 20:12 06/06/18 20:11 81 18 06/06/18 16:28 97.9 F 55 L 18 06/06/18 14:19 86 06/06/18 14:13 77 22 06/06/18 14:03 06/06/18 13:59 61 22 BP Pulse Ox 06/07/18 08:33 06/07/18 08:17 93 06/07/18 08:14 06/07/18 08:09 96/68 96 06/07/18 04:14 101/66 93 06/07/18 02:13 06/07/18 01:57 06/06/18 23:50 103/71 92 06/06/18 22:49 108/71 06/06/18 20:24 06/06/18 20:18 108/71 73 L 06/06/18 20:12 97 06/06/18 20:11 06/06/18 16:28 96/57 99 06/06/18 14:19 96 06/06/18 14:13 06/06/18 14:03 98 06/06/18 13:59 - Physical Examination General: No Apparent Distress HEENT: Positive: PERRL Neck: Positive: trachea midline Cardiac: Positive: Other (paced) Lungs: Positive: Decreased Breath Sounds - Labs and Meds Coagulation 06/07/18 Range/Units 05:51 PT 21.6 H (12.2-14.9) Sec. INR 1.75 H (0.87-1.13) Comprehensive Metabolic Panel 06/07/18 Range/Units 05:51 Sodium 132 L (137-145) mmol/L Potassium 4.1 (3.6-5.0) mmol/L Chloride 98.9 (98-107) mmol/L Carbon Dioxide 21 L (22-30) mmol/L BUN 20 (9-20) mg/dL Creatinine 0.7 L (0.8-1.5) mg/dL Glucose 78 (75-100) mg/dL Calcium 8.0 L (8.4-10.2) mg/dL
[2018-06-07] MEDS ORDERED: ZAROXOLYN PO SCH (11:00)
--- NOTE | 2018-06-07 16:04 | Progress Note ---
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 fib - Heart rate controlled - Continue metoprolol and warfarin - INR level trending up, will monitor - Target INR level is 2-3 Hyponatremia -Improving on oral fluid restriction, will monitor sodium level Hypomagnesemia -Repleted, we'll monitor level Generalized abdominal pain -Probably secondary to GERD -On famotidine Disposition; continue inpatient care. Discharge per cardiology History Interval history: Pt has no new complaints. He denied chest pain or shortness of breath. Hospitalist Physical - Constitutional Vitals: Temp Pulse Resp BP Pulse Ox 98.2 F 70 20 95/57 99 06/07/18 11:34 06/07/18 13:32 06/07/18 13:32 06/07/18 11:34 06/07/18 13:19 General appearance: Present: no acute distress - EENT Eyes: Present: PERRL, EOM intact ENT: hearing intact, clear oral mucosa - Neck Neck: Present: supple - Respiratory Respiratory effort: normal Respiratory: bilateral: diminished - Cardiovascular Rhythm: regular Heart Sounds: Present: S1 & S2 - Extremities Extremity abnormal: edema (in LT LE), other (s/p RT BKA) - Abdominal General gastrointestinal: soft, non-tender, non-distended, normal bowel sounds - Neurologic Neurologic: moves all extremities Results - Labs CBC & Chem 7: 06/03/18 05:39 06/07/18 05:51 Labs: Laboratory Last Values WBC 7.1 K/mm3 (4.5-11.0) 06/03/18 05:39 RBC 3.89 M/mm3 (3.65-5.03) 06/03/18 05:39 Hgb 10.9 gm/dl (11.8-15.2) L 06/03/18 05:39 Hct 34.4 % (35.5-45.6) L 06/03/18 05:39 MCV 88 fl (84-94) 06/03/18 05:39 MCH 28 pg (28-32) 06/03/18 05:39 MCHC 32 % (32-34) 06/03/18 05:39 RDW 18.7 % (13.2-15.2) H 06/03/18 05:39 Plt Count 223 K/mm3 (140-440) 06/03/18 05:39 Lymph % (Auto) 4.9 % (13.4-35.0) L 06/03/18 05:39 [place] % (Auto) 14.2 % (0.0-7.3) H 06/03/18 05:39 Eos % (Auto) 2.4 % (0.0-4.3) 06/03/18 05:39 Baso % (Auto) 0.8 % (0.0-1.8) 06/03/18 05:39 Lymph # 0.3 K/mm3 (1.2-5.4) L 06/03/18 05:39 [place] # 1.0 K/mm3 (0.0-0.8) H 06/03/18 05:39 Eos # 0.2 K/mm3 (0.0-0.4) 06/03/18 05:39 Baso # 0.1 K/mm3 (0.0-0.1) 06/03/18 05:39 Seg Neutrophils % 77.7 % (40.0-70.0) H 06/03/18 05:39 Seg Neutrophils # 5.5 K/mm3 (1.8-7.7) 06/03/18 05:39 PT 21.6 Sec. (12.2-14.9) H 06/07/18 05:51 INR 1.75 (0.87-1.13) H 06/07/18 05:51 Sodium 132 mmol/L (137-145) L 06/07/18 05:51 Potassium 4.1 mmol/L (3.6-5.0) 06/07/18 05:51 Chloride 98.9 mmol/L (98-107) 06/07/18 05:51 Carbon Dioxide 21 mmol/L (22-30) L 06/07/18 05:51 Anion Gap 16 mmol/L 06/07/18 05:51 BUN 20 mg/dL (9-20) 06/07/18 05:51 Creatinine 0.7 mg/dL (0.8-1.5) L 06/07/18 05:51 Estimated GFR > 60 ml/min 06/07/18 05:51 BUN/Creatinine Ratio 29 % 06/07/18 05:51 Glucose 78 mg/dL (75-100) 06/07/18 05:51 Hemoglobin A1c 5.0 % (4-6) 06/02/18 22:57 Osmolality 295 Mosm/kg 06/03/18 05:39 Calcium 8.0 mg/dL (8.4-10.2) L 06/07/18 05:51 Phosphorus 3.30 mg/dL (2.5-4.5) 06/04/18 06:07 Magnesium 1.50 mg/dL (1.7-2.3) L 06/07/18 05:51 Total Bilirubin 3.20 mg/dL (0.1-1.2) H 06/03/18 05:39 AST 44 units/L (5-40) H 06/03/18 05:39 ALT 17 units/L (7-56) 06/03/18 05:39 Alkaline Phosphatase 137 units/L (35-129) H 06/03/18 05:39 Troponin T 0.019 ng/mL (0.00-0.029) 06/02/18 22:57 NT-Pro-B Natriuret Pep 5159 pg/mL (0-900) H 06/02/18 17:24 Total Protein 8.1 g/dL (6.3-8.2) 06/03/18 05:39 Albumin 2.6 g/dL (3.9-5) L 06/03/18 05:39 Albumin/Globulin Ratio 0.5 % 06/03/18 05:39 TSH 3.220 mlU/mL (0.270-4.200) 06/04/18 06:07 Urine Color Clementina (Yellow) 06/03/18 10:25 Urine Turbidity Hazy (Clear) 06/03/18 10:25 Urine pH 5.0 (5.0-7.0) 06/03/18 10:25 Ur Specific [place] 1.010 (1.003-1.030) 06/03/18 10:25 Urine Protein <15 mg/dl mg/dL (Negative) 06/03/18 10:25 Urine Glucose (UA) Neg mg/dL (Negative) 06/03/18 10:25 Urine Ketones Neg mg/dL (Negative) 06/03/18 10:25 Urine Blood Neg (Negative) 06/03/18 10:25 Urine Nitrite Neg (Negative) 06/03/18 10:25 Urine Bilirubin Neg (Negative) 06/03/18 10:25 Urine Urobilinogen 4.0 mg/dL (<2.0) 06/03/18 10:25 Ur Leukocyte Esterase Mod (Negative) 06/03/18 10:25 Urine WBC (Auto) 15.0 /HPF (0.0-6.0) H 06/03/18 10:25 Urine RBC (Auto) 1.0 /HPF (0.0-6.0) 06/03/18 10:25 U Epithel Cells (Auto) < 1.0 /HPF (0-13.0) 06/03/18 10:25 Urine Mucus Few /HPF 06/03/18 10:25 Urine Osmolality 420 Mosm/kg 06/03/18 10:25 Urine Sodium 18 mmol/L 06/03/18 10:25 Active Medications - Current Medications Current Medications: Generic Name Dose Route Start Last Admin Trade Name Freq PRN Reason Stop Dose Admin Acetaminophen 650 mg 06/02/18 22:32 06/05/18 10:10 Tylenol PO 650 mg Q4H PRN Administration Pain MILD(1-3)/Fever >100.5/ANDERSON Albuterol 2.5 mg 06/06/18 14:00 06/07/18 13:15 Proventil IH 2.5 mg Q6HRT JULI Administration Aspirin 81 mg 06/03/18 10:00 06/07/18 09:36 Baby Aspirin PO 81 mg QDAY JULI Administration Carvedilol 12.5 mg 06/03/18 14:00 06/07/18 09:35 Coreg PO 12.5 mg BID JULI Administration Famotidine 10 mg 06/07/18 22:00 Pepcid PO BID JULI Furosemide 40 mg 06/06/18 18:00 06/07/18 06:08 Lasix IV 40 mg 0600,1800 JULI Administration Lisinopril 2.5 mg 06/03/18 10:00 06/07/18 09:35 Zestril PO 2.5 mg QDAY JULI Administration Magnesium Oxide 400 mg 06/07/18 10:00 06/07/18 09:35 Mag-Ox PO 400 mg BID JULI Administration Metolazone 5 mg 06/07/18 11:00 Zaroxolyn PO QDAY [facility] Ondansetron HCl 4 mg 06/02/18 22:32 Zofran IV Q8H PRN Nausea And Vomiting Oxycodone/Acetaminophen 1 tab 06/05/18 10:03 06/07/18 06:11 Percocet 5/325 PO 1 tab Q4H PRN Administration Pain, Moderate (4-6) Sodium Chloride 10 ml 06/03/18 10:00 06/07/18 09:36 Sodium Chloride Flush Syringe 10 Ml IV 10 ml BID JULI Administration Sodium Chloride 10 ml 06/02/18 22:32 Sodium Chloride Flush Syringe 10 Ml IV PRN PRN LINE FLUSH Spironolactone 25 mg 06/07/18 11:00 Aldactone PO QDAY [facility] Warfarin Sodium 7.5 mg 06/05/18 17:00 06/06/18 17:49 Coumadin PO 7.5 mg DAILY@1700 [facility] Administration Protocol Warfarin Sodium 2.5 mg 06/07/18 17:00 Coumadin PO 06/07/18 17:01 DAILY@1700 [facility] Nutrition/Malnutrition Assess - Dietary Evaluation Nutrition/Malnutrition Findings: Nutrition Notes Start: 06/03/18 17:15 Freq: Status: Active Protocol: Document 06/06/18 16:11 RM (Rec: 06/06/18 16:14 RM [id number]) Nutrition Notes Initial or Follow up Assessment Current Diagnosis Hypertension,Heart Failure Other Pertinent Diagnosis R BKA Subjective/Other Information Pt stated he had been previously educated but could not recall what he learned. Reviewed Coumadin/Vit K diet education. Gave handout. #1 Nutrition Diagnosis Food and nutrition-related knowledge deficit Etiology inability to recall previous education As Evidenced by Signs and Symptoms pt desire for education Nutrition Intervention Teaching Recipient Patient Learning Readiness Good Teaching Methods Discussion,Handout Response to Teaching Verbalize understanding Education Handouts Provided Vitamin K and Medications Barriers to Learning No Barriers RD phone number provided Yes Patient aware of follow up options Yes Revisit per MD consult or patient Sign Off request:
[2018-06-07] MEDS: ALDACTONE PO SCH (16:20)
[2018-06-07] MEDS ORDERED: COUMADIN PO SCH (17:00)
[2018-06-07] MEDS: COUMADIN PO SCH (17:34)
[2018-06-07] MEDS: PEPCID PO SCH (22:55)
[2018-06-08] MEDS: PROVENTIL IH SCH ×4 (02:20→20:11)
[2018-06-08] MEDS: LASIX IV SCH ×2 (05:30→17:56)
[2018-06-08] MEDS: PERCOCET 5/325 PO PRN ×2 (05:30→10:47)
[2018-06-08 06:34] LABS: BUN/Creatinine Ratio 23; Blood Urea Nitrogen 23 mg/dL (9-20); Calcium 8.5 mg/dL (8.4-10.2); Hemolysis Index 2
[2018-06-08 07:37] LABS: INR 2.19 (0.87-1.13)
--- NOTE | 2018-06-08 08:51 | Progress Note ---
Assessment and Plan 1. Hyponatremia: Hyponatremia secondary to SIADH in the setting of CHF exacerbation. Patient is not compliant with fluid intake. A dose of Tolvaptan today. Hassan top Metolazone. Monitor Sodium level. Fluid restriction. 2. Acute kidney injury: Mild EMILY in the setting of CHF. Creatinine level is better. Monitor renal function. Avoid nephrotoxic agents. 3. CHF exacerbation: Was on Milrinone drip. Followed by Cards. 4. FEN: Volume overload, continue Lasix. Fluid restriction. 5. Paroxysmal atrial flutter. Subjective Date of service: 06/08/18 Interval history: Patient is doing ok. Objective - Vital Signs Vital signs: Vital Signs - 12hr 06/07/18 06/07/18 06/07/18 21:00 21:10 22:55 Pulse Rate 84 Pulse Rate [ 69 73 Posterior Bilateral Throughout] Respiratory 20 20 Rate [Posterior Bilateral Throughout] O2 Sat by Pulse 96 Oximetry 06/08/18 06/08/18 02:21 02:31 Pulse Rate Pulse Rate [ 76 78 Posterior Bilateral Throughout] Respiratory 20 20 Rate [Posterior Bilateral Throughout] O2 Sat by Pulse Oximetry - General Appearance General appearance: well-developed, well-nourished, appears stated age, other (not in distress) EENT: ATNC, PERRL, hearing intact, vision intact Neck: JVD, supple Respiratory: Present: Clear to Ascultation Cardiology: regular, S1S2, no murmurs Gastrointestinal: normoactive bowel sounds, no tenderness, no distended Integumentary: no rash Neurologic: no focal deficit, no asterixis Musculoskeletal: other (2+ edema of L LE, R BKA) - Lab 06/03/18 05:39 06/09/18 05:15 Most recent lab results Calcium 8.5 mg/dL (8.4-10.2) 06/08/18 05:50 Phosphorus 3.30 mg/dL (2.5-4.5) 06/04/18 06:07 Magnesium 1.90 mg/dL (1.7-2.3) 06/08/18 05:50 Urine Sodium 18 mmol/L 06/03/18 10:25 Medications & Allergies - Medications Allergies/Adverse Reactions: Allergies erythromycin base [From E-Mycin] Allergy (Verified 06/02/18 16:01) Unknown Home Medications: Home Medications Medication Instructions Recorded Confirmed Last Taken Type Aspirin [Aspirin BABY CHEW TAB] 81 mg PO QDAY 12/02/14 06/03/18 Unknown History Carvedilol [Coreg] 25 mg PO BID #60 tablet 02/12/15 06/03/18 Unknown Rx Lisinopril [Zestril TAB] 2.5 mg PO QDAY #30 tablet 02/12/15 06/03/18 Unknown Rx Warfarin [Coumadin] See Protocol PO QDAY 05/27/18 06/03/18 Unknown History Furosemide [Lasix] 20 mg PO QDAY #30 tablet 05/30/18 06/03/18 Unknown Rx oxyCODONE /ACETAMINOPHEN [Percocet 1 tab PO BID PRN #8 tablet 05/30/18 06/03/18 Unknown Rx 5/325 mg] Active Medications: Generic Name Dose Route Start Last Admin Trade Name Freq PRN Reason Stop Dose Admin Acetaminophen 650 mg 06/02/18 22:32 06/05/18 10:10 Tylenol PO 650 mg Q4H PRN Administration Pain MILD(1-3)/Fever >100.5/ANDERSON Albuterol 2.5 mg 06/06/18 14:00 06/08/18 02:20 Proventil IH 2.5 mg Q6HRT JULI Administration Aspirin 81 mg 06/03/18 10:00 06/07/18 09:36 Baby Aspirin PO 81 mg QDAY JULI Administration Carvedilol 12.5 mg 06/03/18 14:00 06/07/18 22:55 Coreg PO 12.5 mg BID JULI Administration Famotidine 10 mg 06/07/18 22:00 06/07/18 22:55 Pepcid PO 10 mg BID JULI Administration Furosemide 40 mg 06/06/18 18:00 06/08/18 05:30 Lasix IV 40 mg 0600,1800 JULI Administration Lisinopril 2.5 mg 06/03/18 10:00 06/07/18 09:35 Zestril PO 2.5 mg QDAY JULI Administration Magnesium Oxide 400 mg 06/07/18 10:00 06/07/18 22:55 Mag-Ox PO 400 mg BID JULI Administration Metolazone 5 mg 06/07/18 11:00 06/07/18 16:21 Zaroxolyn PO 5 mg QDAY JULI Administration Ondansetron HCl 4 mg 06/02/18 22:32 Zofran IV Q8H PRN Nausea And Vomiting Oxycodone/Acetaminophen 1 tab 06/05/18 10:03 06/08/18 05:30 Percocet 5/325 PO 1 tab Q4H PRN Administration Pain, Moderate (4-6) Sodium Chloride 10 ml 06/03/18 10:00 06/07/18 22:56 Sodium Chloride Flush Syringe 10 Ml IV 10 ml BID JULI Administration Sodium Chloride 10 ml 06/02/18 22:32 Sodium Chloride Flush Syringe 10 Ml IV PRN PRN LINE FLUSH Spironolactone 25 mg 06/07/18 11:00 06/07/18 16:20 Aldactone PO 25 mg QDAY JULI Administration Warfarin Sodium 7.5 mg 06/05/18 17:00 06/07/18 17:34 Coumadin PO 7.5 mg DAILY@1700 JULI Administration Protocol
[2018-06-08] MEDS: BABY ASPIRIN PO SCH (09:02)
[2018-06-08] MEDS: ALDACTONE PO SCH (09:04)
[2018-06-08] MEDS: ZESTRIL PO SCH (09:04)
[2018-06-08] MEDS: PEPCID PO SCH ×2 (09:05→21:02)
[2018-06-08] MEDS: MAG-OX PO SCH ×2 (09:05→21:02)
[2018-06-08] MEDS: COREG PO SCH ×2 (09:05→21:03)
[2018-06-08] MEDS: SODIUM CHLORIDE FLUSH SYRINGE 10 ML IV SCH ×2 (09:06→21:04)
[2018-06-08] MEDS ORDERED: SAMSCA PO ONE (10:00)
[2018-06-08] MEDS ORDERED: COREG PO SCH (11:58)
--- NOTE | 2018-06-08 11:58 | Progress Note ---
Assessment and Plan Acute on chronic systolic heart failure Decompensated Hyponatremia Agree with tolvaptan Severe dilated cardiomyopathy ejection fraction 10-15% Presence of cardiac defibrillator Paroxysmal atrial flutter on warfarin for oral anticoagulation therapy. INR is therapeutic PVD s/p right below knee amputation Recommendations: Resume IV milrinone and continue IV lasix Reduce carvedilol dose to 6.25 mg po bid Continue tolvaptan Advised sodium/fluid restriction Prognosis is poor Subjective Date of service: 06/08/18 Principal diagnosis: CHF Interval history: Patient is retaining fluids again. Exam is pertinent for LLL crackles Objective Vital Signs Temp Pulse Pulse Resp Resp BP Pulse Ox 06/08/18 10:00 79 18 06/08/18 09:05 79 06/08/18 09:04 79 98/63 06/08/18 08:38 97.0 F L 18 98/63 06/08/18 05:03 98.5 F 80 18 87/58 94 06/08/18 02:31 78 20 06/08/18 02:21 76 20 06/07/18 23:50 98.2 F 18 113/85 06/07/18 23:47 98.1 F 82 18 97/57 93 06/07/18 22:55 84 06/07/18 21:10 73 20 06/07/18 21:00 69 20 96 06/07/18 19:09 98.0 F 50 L 20 102/71 60 L 06/07/18 16:30 97.9 F 80 18 92/65 98 06/07/18 13:32 70 20 06/07/18 13:19 99 06/07/18 13:15 85 18 - Physical Examination General: No Apparent Distress HEENT: Positive: PERRL Neck: Positive: trachea midline Cardiac: Positive: Reg Rate and Rhythm Lungs: Positive: Rales Extremities: Present: +2 Edema - Labs and Meds Coagulation 06/08/18 Range/Units 07:00 PT 25.8 H (12.2-14.9) Sec. INR 2.19 H (0.87-1.13) Comprehensive Metabolic Panel 06/08/18 Range/Units 05:50 Sodium 127 L (137-145) mmol/L Potassium 4.2 (3.6-5.0) mmol/L Chloride 92.9 L (98-107) mmol/L Carbon Dioxide 21 L (22-30) mmol/L BUN 23 H (9-20) mg/dL Creatinine 1.0 (0.8-1.5) mg/dL Glucose 82 (75-100) mg/dL Calcium 8.5 (8.4-10.2) mg/dL
[2018-06-08] MEDS ORDERED: MILRINONE-D5W 20 MG/100 ML 20 MG/100 ML BAG IV SCH (12:00)
--- NOTE | 2018-06-08 15:39 | Progress Note ---
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% - IV milrinone restarted due to worsening LLE edema, cont IV Lasix, BB, Aldactone and ACEI - Status post AICD placement - Cardiology following Paroxysmal atrial flutter - Heart rate controlled - Continue metoprolol and warfarin - INR level therapeutic, will monitor Hyponatremia - Na level trended down today to 127 - s/p Tolvaptan x1 today, continue oral fluid restriction - Nephrology following Acute hypoxic respiratory failure -Probably secondary to the acute heart failure -continue oxygen supplementation as needed Hypomagnesemia -Resolved status post repletion Generalized abdominal pain -Probably secondary to GERD -On famotidine PVD s/p right below knee amputation Disposition: continue inpatient care. Discharge per cardiology History Interval history: Pt complaining of worsening left lower extremity swelling. He denies shortness of breath. Hospitalist Physical - Constitutional Vitals: Temp Pulse Resp BP Pulse Ox 97.0 F L 84 18 98/63 96 06/08/18 08:38 06/08/18 15:19 06/08/18 15:19 06/08/18 09:04 06/08/18 08:53 General appearance: Present: no acute distress - EENT Eyes: Present: PERRL, EOM intact ENT: hearing intact - Neck Neck: Present: supple - Respiratory Respiratory effort: normal Respiratory: bilateral: CTA - Cardiovascular Rhythm: regular Heart Sounds: Present: S1 & S2 - Extremities Extremity abnormal: edema (in left lower extremity ) - Abdominal General gastrointestinal: soft, non-tender, normal bowel sounds - Neurologic Neurologic: moves all extremities Results - Labs CBC & Chem 7: 06/03/18 05:39 06/08/18 05:50 Labs: Laboratory Last Values WBC 7.1 K/mm3 (4.5-11.0) 06/03/18 05:39 RBC 3.89 M/mm3 (3.65-5.03) 06/03/18 05:39 Hgb 10.9 gm/dl (11.8-15.2) L 06/03/18 05:39 Hct 34.4 % (35.5-45.6) L 06/03/18 05:39 MCV 88 fl (84-94) 06/03/18 05:39 MCH 28 pg (28-32) 06/03/18 05:39 MCHC 32 % (32-34) 06/03/18 05:39 RDW 18.7 % (13.2-15.2) H 06/03/18 05:39 Plt Count 223 K/mm3 (140-440) 06/03/18 05:39 Lymph % (Auto) 4.9 % (13.4-35.0) L 06/03/18 05:39 [place] % (Auto) 14.2 % (0.0-7.3) H 06/03/18 05:39 Eos % (Auto) 2.4 % (0.0-4.3) 06/03/18 05:39 Baso % (Auto) 0.8 % (0.0-1.8) 06/03/18 05:39 Lymph # 0.3 K/mm3 (1.2-5.4) L 06/03/18 05:39 [place] # 1.0 K/mm3 (0.0-0.8) H 06/03/18 05:39 Eos # 0.2 K/mm3 (0.0-0.4) 06/03/18 05:39 Baso # 0.1 K/mm3 (0.0-0.1) 06/03/18 05:39 Seg Neutrophils % 77.7 % (40.0-70.0) H 06/03/18 05:39 Seg Neutrophils # 5.5 K/mm3 (1.8-7.7) 06/03/18 05:39 PT 25.8 Sec. (12.2-14.9) H 06/08/18 07:00 INR 2.19 (0.87-1.13) H 06/08/18 07:00 Sodium 127 mmol/L (137-145) L 06/08/18 05:50 Potassium 4.2 mmol/L (3.6-5.0) 06/08/18 05:50 Chloride 92.9 mmol/L (98-107) L 06/08/18 05:50 Carbon Dioxide 21 mmol/L (22-30) L 06/08/18 05:50 Anion Gap 17 mmol/L 06/08/18 05:50 BUN 23 mg/dL (9-20) H 06/08/18 05:50 Creatinine 1.0 mg/dL (0.8-1.5) 06/08/18 05:50 Estimated GFR > 60 ml/min 06/08/18 05:50 BUN/Creatinine Ratio 23 % 06/08/18 05:50 Glucose 82 mg/dL (75-100) 06/08/18 05:50 Hemoglobin A1c 5.0 % (4-6) 06/02/18 22:57 Osmolality 295 Mosm/kg 06/03/18 05:39 Calcium 8.5 mg/dL (8.4-10.2) 06/08/18 05:50 Phosphorus 3.30 mg/dL (2.5-4.5) 06/04/18 06:07 Magnesium 1.90 mg/dL (1.7-2.3) 06/08/18 05:50 Total Bilirubin 3.20 mg/dL (0.1-1.2) H 06/03/18 05:39 AST 44 units/L (5-40) H 06/03/18 05:39 ALT 17 units/L (7-56) 06/03/18 05:39 Alkaline Phosphatase 137 units/L (35-129) H 06/03/18 05:39 Troponin T 0.019 ng/mL (0.00-0.029) 06/02/18 22:57 NT-Pro-B Natriuret Pep 5159 pg/mL (0-900) H 06/02/18 17:24 Total Protein 8.1 g/dL (6.3-8.2) 06/03/18 05:39 Albumin 2.6 g/dL (3.9-5) L 06/03/18 05:39 Albumin/Globulin Ratio 0.5 % 06/03/18 05:39 TSH 3.220 mlU/mL (0.270-4.200) 06/04/18 06:07 Total Cortisol 14.3 mcg/dL () 06/04/18 06:07 Urine Color Clementina (Yellow) 06/03/18 10:25 Urine Turbidity Hazy (Clear) 06/03/18 10:25 Urine pH 5.0 (5.0-7.0) 06/03/18 10:25 Ur Specific [place] 1.010 (1.003-1.030) 06/03/18 10:25 Urine Protein <15 mg/dl mg/dL (Negative) 06/03/18 10:25 Urine Glucose (UA) Neg mg/dL (Negative) 06/03/18 10:25 Urine Ketones Neg mg/dL (Negative) 06/03/18 10:25 Urine Blood Neg (Negative) 06/03/18 10:25 Urine Nitrite Neg (Negative) 06/03/18 10:25 Urine Bilirubin Neg (Negative) 06/03/18 10:25 Urine Urobilinogen 4.0 mg/dL (<2.0) 06/03/18 10:25 Ur Leukocyte Esterase Mod (Negative) 06/03/18 10:25 Urine WBC (Auto) 15.0 /HPF (0.0-6.0) H 06/03/18 10:25 Urine RBC (Auto) 1.0 /HPF (0.0-6.0) 06/03/18 10:25 U Epithel Cells (Auto) < 1.0 /HPF (0-13.0) 06/03/18 10:25 Urine Mucus Few /HPF 06/03/18 10:25 Urine Osmolality 420 Mosm/kg 06/03/18 10:25 Urine Sodium 18 mmol/L 06/03/18 10:25 Active Medications - Current Medications Current Medications: Generic Name Dose Route Start Last Admin Trade Name Freq PRN Reason Stop Dose Admin Acetaminophen 650 mg 06/02/18 22:32 06/05/18 10:10 Tylenol PO 650 mg Q4H PRN Administration Pain MILD(1-3)/Fever >100.5/ANDERSON Albuterol 2.5 mg 06/06/18 14:00 06/08/18 15:19 Proventil IH 2.5 mg Q6HRT JULI Administration Aspirin 81 mg 06/03/18 10:00 06/08/18 09:02 Baby Aspirin PO 81 mg QDAY JULI Administration Carvedilol 6.25 mg 06/08/18 22:00 Coreg PO BID JULI Famotidine 10 mg 06/07/18 22:00 06/08/18 09:05 Pepcid PO 10 mg BID JULI Administration Furosemide 40 mg 06/06/18 18:00 06/08/18 05:30 Lasix IV 40 mg 0600,1800 JULI Administration Milrinone Lactate/Dextrose 20 mg in 100 mls @ 6.518 mls/hr 06/08/18 12:00 Milrinone-D5w 20 Mg/100 Ml IV TITR JULI 0.25 MCG/KG/MIN Lisinopril 2.5 mg 06/03/18 10:00 06/08/18 09:04 Zestril PO 2.5 mg QDAY JULI Administration Magnesium Oxide 400 mg 06/07/18 10:00 06/08/18 09:05 Mag-Ox PO 400 mg BID JULI Administration Ondansetron HCl 4 mg 06/02/18 22:32 Zofran IV Q8H PRN Nausea And Vomiting Oxycodone/Acetaminophen 1 tab 06/05/18 10:03 06/08/18 10:47 Percocet 5/325 PO 1 tab Q4H PRN Administration Pain, Moderate (4-6) Sodium Chloride 10 ml 06/03/18 10:00 06/08/18 09:06 Sodium Chloride Flush Syringe 10 Ml IV 10 ml BID JULI Administration Sodium Chloride 10 ml 06/02/18 22:32 Sodium Chloride Flush Syringe 10 Ml IV PRN PRN LINE FLUSH Spironolactone 25 mg 06/07/18 11:00 06/08/18 09:04 Aldactone PO 25 mg QDAY JULI Administration Warfarin Sodium 7.5 mg 06/05/18 17:00 06/07/18 17:34 Coumadin PO 7.5 mg DAILY@1700 JULI Administration Protocol Nutrition/Malnutrition Assess - Dietary Evaluation Nutrition/Malnutrition Findings: Nutrition Notes Start: 06/03/18 17:15 Freq: Status: Active Protocol: Document 06/06/18 16:11 RM (Rec: 06/06/18 16:14 RM [id number]) Nutrition Notes Initial or Follow up Assessment Current Diagnosis Hypertension,Heart Failure Other Pertinent Diagnosis R BKA Subjective/Other Information Pt stated he had been previously educated but could not recall what he learned. Reviewed Coumadin/Vit K diet education. Gave handout. #1 Nutrition Diagnosis Food and nutrition-related knowledge deficit Etiology inability to recall previous education As Evidenced by Signs and Symptoms pt desire for education Nutrition Intervention Teaching Recipient Patient Learning Readiness Good Teaching Methods Discussion,Handout Response to Teaching Verbalize understanding Education Handouts Provided Vitamin K and Medications Barriers to Learning No Barriers RD phone number provided Yes Patient aware of follow up options Yes Revisit per MD consult or patient Sign Off request:
[2018-06-08] MEDS: COUMADIN PO SCH (17:56)
[2018-06-08] MEDS: MILRINONE-D5W 20 MG/100 ML 20 MG/100 ML BAG IV SCH (21:02)
[2018-06-09] MEDS: PERCOCET 5/325 PO PRN ×3 (02:27→17:30)
[2018-06-09] MEDS: PROVENTIL IH SCH ×4 (04:02→20:55)
[2018-06-09] MEDS: LASIX IV SCH ×2 (05:32→17:30)
[2018-06-09 06:05] LABS: INR 2.92 (0.87-1.13)
[2018-06-09 07:04] LABS: BUN/Creatinine Ratio 25; Blood Urea Nitrogen 28 mg/dL (9-20); Calcium 8.2 mg/dL (8.4-10.2); Hemolysis Index 3
[2018-06-09] MEDS: MILRINONE-D5W 20 MG/100 ML 20 MG/100 ML BAG IV SCH (07:25)
--- NOTE | 2018-06-09 09:32 | Progress Note ---
Assessment and Plan 1. Hyponatremia: Hyponatremia secondary to SIADH in the setting of CHF exacerbation. Received Tolvaptan yesterday. Monitor Sodium level. Fluid restriction. 2. Acute kidney injury: Mild EMILY in the setting of CHF. Monitor renal function. Avoid nephrotoxic agents. 3. CHF exacerbation: On Milrinone drip. Followed by Cards. 4. FEN: Volume overload, continue Lasix. Fluid restriction. 5. Paroxysmal atrial flutter. Subjective Date of service: 06/09/18 Principal diagnosis: CHF Interval history: Patient is doing ok. Objective - Vital Signs Vital signs: Vital Signs - 12hr 06/08/18 06/09/18 06/09/18 22:00 00:08 02:27 Temperature 97.4 F L Pulse Rate 66 77 Pulse Rate [ Posterior Bilateral Throughout] Respiratory 22 20 Rate Respiratory Rate [Posterior Bilateral Throughout] Blood Pressure 95/53 O2 Sat by Pulse 95 Oximetry 06/09/18 06/09/18 06/09/18 03:57 04:06 04:49 Temperature 97.8 F Pulse Rate 82 Pulse Rate [ 80 82 Posterior Bilateral Throughout] Respiratory 20 Rate Respiratory 20 20 Rate [Posterior Bilateral Throughout] Blood Pressure 96/54 O2 Sat by Pulse 97 Oximetry 06/09/18 06/09/18 06/09/18 09:12 09:13 09:21 Temperature Pulse Rate Pulse Rate [ 83 89 Posterior Bilateral Throughout] Respiratory Rate Respiratory 20 18 Rate [Posterior Bilateral Throughout] Blood Pressure O2 Sat by Pulse 96 Oximetry - General Appearance General appearance: well-developed, well-nourished, appears stated age, other (not in distress) EENT: ATNC, PERRL, mucous membranes moist, hearing intact, vision intact Neck: supple Respiratory: Present: Rales Cardiology: regular, S1S2, no murmurs Gastrointestinal: normoactive bowel sounds, no tenderness, no distended Integumentary: no rash Neurologic: no focal deficit, no asterixis, alert and oriented x3 Musculoskeletal: other (2+ edema of both LEs noted) - Lab 06/03/18 05:39 06/09/18 05:15 Most recent lab results Calcium 8.2 mg/dL (8.4-10.2) L 06/09/18 05:15 Phosphorus 3.30 mg/dL (2.5-4.5) 06/04/18 06:07 Magnesium 1.90 mg/dL (1.7-2.3) 06/08/18 05:50 Urine Sodium 18 mmol/L 06/03/18 10:25 Medications & Allergies - Medications Allergies/Adverse Reactions: Allergies erythromycin base [From E-Mycin] Allergy (Verified 06/02/18 16:01) Unknown Home Medications: Home Medications Medication Instructions Recorded Confirmed Last Taken Type Aspirin [Aspirin BABY CHEW TAB] 81 mg PO QDAY 12/02/14 06/03/18 Unknown History Carvedilol [Coreg] 25 mg PO BID #60 tablet 02/12/15 06/03/18 Unknown Rx Lisinopril [Zestril TAB] 2.5 mg PO QDAY #30 tablet 02/12/15 06/03/18 Unknown Rx Warfarin [Coumadin] See Protocol PO QDAY 05/27/18 06/03/18 Unknown History Furosemide [Lasix] 20 mg PO QDAY #30 tablet 05/30/18 06/03/18 Unknown Rx oxyCODONE /ACETAMINOPHEN [Percocet 1 tab PO BID PRN #8 tablet 05/30/18 06/03/18 Unknown Rx 5/325 mg] Active Medications: Generic Name Dose Route Start Last Admin Trade Name Freq PRN Reason Stop Dose Admin Acetaminophen 650 mg 06/02/18 22:32 06/05/18 10:10 Tylenol PO 650 mg Q4H PRN Administration Pain MILD(1-3)/Fever >100.5/ANDERSON Albuterol 2.5 mg 06/06/18 14:00 06/09/18 09:13 Proventil IH 2.5 mg Q6HRT JULI Administration Aspirin 81 mg 06/03/18 10:00 06/08/18 09:02 Baby Aspirin PO 81 mg QDAY JULI Administration Carvedilol 6.25 mg 06/08/18 22:00 06/08/18 21:03 Coreg PO Not Given BID JULI Famotidine 10 mg 06/07/18 22:00 06/08/18 21:02 Pepcid PO 10 mg BID JULI Administration Furosemide 40 mg 06/06/18 18:00 06/09/18 05:32 Lasix IV 40 mg 0600,1800 JULI Administration Milrinone Lactate/Dextrose 20 mg in 100 mls @ 6.518 mls/hr 06/08/18 12:00 06/09/18 07:25 Milrinone-D5w 20 Mg/100 Ml IV 0.25 mcg/kg/min TITR JULI 6.518 mls/hr Administration 0.25 MCG/KG/MIN Lisinopril 2.5 mg 06/03/18 10:00 06/08/18 09:04 Zestril PO 2.5 mg QDAY JULI Administration Magnesium Oxide 400 mg 06/07/18 10:00 06/08/18 21:02 Mag-Ox PO 400 mg BID [facility] Administration Ondansetron HCl 4 mg 06/02/18 22:32 Zofran IV Q8H PRN Nausea And Vomiting Oxycodone/Acetaminophen 1 tab 06/05/18 10:03 06/09/18 02:27 Percocet 5/325 PO 1 tab Q4H PRN Administration Pain, Moderate (4-6) Sodium Chloride 10 ml 06/03/18 10:00 06/08/18 21:04 Sodium Chloride Flush Syringe 10 Ml IV 10 ml BID JULI Administration Sodium Chloride 10 ml 06/02/18 22:32 Sodium Chloride Flush Syringe 10 Ml IV PRN PRN LINE FLUSH Spironolactone 25 mg 06/07/18 11:00 06/08/18 09:04 Aldactone PO 25 mg QDAY [facility] Administration Warfarin Sodium 5 mg 06/09/18 17:00 Coumadin PO DAILY@1700 [facility] Protocol
[2018-06-09] MEDS: PEPCID PO SCH (10:01)
[2018-06-09] MEDS: MAG-OX PO SCH (10:01)
[2018-06-09] MEDS: SODIUM CHLORIDE FLUSH SYRINGE 10 ML IV SCH (10:01)
[2018-06-09] MEDS: BABY ASPIRIN PO SCH (10:01)
--- NOTE | 2018-06-09 10:01 | Progress Note ---
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% - IV milrinone restarted due to worsening LLE edema, cont IV Lasix, BB, Aldactone and ACEI - Status post AICD placement - Cardiology following Paroxysmal atrial flutter - Heart rate controlled - Continue metoprolol and warfarin - INR level therapeutic, will monitor Hyponatremia - Na level trended down today to 127 - s/p Tolvaptan x1 today, continue oral fluid restriction - Nephrology following Acute hypoxic respiratory failure -Probably secondary to the acute heart failure -continue oxygen supplementation as needed Hypomagnesemia -Resolved status post repletion Generalized abdominal pain -Probably secondary to GERD -On famotidine PVD s/p right below knee amputation Disposition: continue inpatient care. Discharge per cardiology Hospitalist Physical - Constitutional Vitals: Temp Pulse Resp BP Pulse Ox 97.8 F 89 18 96/54 96 06/09/18 04:49 06/09/18 09:21 06/09/18 09:21 06/09/18 04:49 06/09/18 09:12 General appearance: Present: no acute distress Results - Labs CBC & Chem 7: 06/03/18 05:39 06/09/18 05:15 Labs: Laboratory Last Values WBC 7.1 K/mm3 (4.5-11.0) 06/03/18 05:39 RBC 3.89 M/mm3 (3.65-5.03) 06/03/18 05:39 Hgb 10.9 gm/dl (11.8-15.2) L 06/03/18 05:39 Hct 34.4 % (35.5-45.6) L 06/03/18 05:39 MCV 88 fl (84-94) 06/03/18 05:39 MCH 28 pg (28-32) 06/03/18 05:39 MCHC 32 % (32-34) 06/03/18 05:39 RDW 18.7 % (13.2-15.2) H 06/03/18 05:39 Plt Count 223 K/mm3 (140-440) 06/03/18 05:39 Lymph % (Auto) 4.9 % (13.4-35.0) L 06/03/18 05:39 Caroline % (Auto) 14.2 % (0.0-7.3) H 06/03/18 05:39 Eos % (Auto) 2.4 % (0.0-4.3) 06/03/18 05:39 Baso % (Auto) 0.8 % (0.0-1.8) 06/03/18 05:39 Lymph # 0.3 K/mm3 (1.2-5.4) L 06/03/18 05:39 Caroline # 1.0 K/mm3 (0.0-0.8) H 06/03/18 05:39 Eos # 0.2 K/mm3 (0.0-0.4) 06/03/18 05:39 Baso # 0.1 K/mm3 (0.0-0.1) 06/03/18 05:39 Seg Neutrophils % 77.7 % (40.0-70.0) H 06/03/18 05:39 Seg Neutrophils # 5.5 K/mm3 (1.8-7.7) 06/03/18 05:39 PT 32.5 Sec. (12.2-14.9) H 06/09/18 05:15 INR 2.92 (0.87-1.13) H 06/09/18 05:15 Sodium 134 mmol/L (137-145) L D 06/09/18 05:15 Potassium 4.2 mmol/L (3.6-5.0) 06/09/18 05:15 Chloride 99.9 mmol/L (98-107) 06/09/18 05:15 Carbon Dioxide 20 mmol/L (22-30) L 06/09/18 05:15 Anion Gap 18 mmol/L 06/09/18 05:15 BUN 28 mg/dL (9-20) H 06/09/18 05:15 Creatinine 1.1 mg/dL (0.8-1.5) 06/09/18 05:15 Estimated GFR > 60 ml/min 06/09/18 05:15 BUN/Creatinine Ratio 25 % 06/09/18 05:15 Glucose 93 mg/dL (75-100) 06/09/18 05:15 Hemoglobin A1c 5.0 % (4-6) 06/02/18 22:57 Osmolality 295 Mosm/kg 06/03/18 05:39 Calcium 8.2 mg/dL (8.4-10.2) L 06/09/18 05:15 Phosphorus 3.30 mg/dL (2.5-4.5) 06/04/18 06:07 Magnesium 1.90 mg/dL (1.7-2.3) 06/08/18 05:50 Total Bilirubin 3.20 mg/dL (0.1-1.2) H 06/03/18 05:39 AST 44 units/L (5-40) H 06/03/18 05:39 ALT 17 units/L (7-56) 06/03/18 05:39 Alkaline Phosphatase 137 units/L (35-129) H 06/03/18 05:39 Troponin T 0.019 ng/mL (0.00-0.029) 06/02/18 22:57 NT-Pro-B Natriuret Pep 5159 pg/mL (0-900) H 06/02/18 17:24 Total Protein 8.1 g/dL (6.3-8.2) 06/03/18 05:39 Albumin 2.6 g/dL (3.9-5) L 06/03/18 05:39 Albumin/Globulin Ratio 0.5 % 06/03/18 05:39 TSH 3.220 mlU/mL (0.270-4.200) 06/04/18 06:07 Total Cortisol 14.3 mcg/dL () 06/04/18 06:07 Urine Color Clementina (Yellow) 06/03/18 10:25 Urine Turbidity Hazy (Clear) 06/03/18 10:25 Urine pH 5.0 (5.0-7.0) 06/03/18 10:25 Ur Specific Orange 1.010 (1.003-1.030) 06/03/18 10:25 Urine Protein <15 mg/dl mg/dL (Negative) 06/03/18 10:25 Urine Glucose (UA) Neg mg/dL (Negative) 06/03/18 10:25 Urine Ketones Neg mg/dL (Negative) 06/03/18 10:25 Urine Blood Neg (Negative) 06/03/18 10:25 Urine Nitrite Neg (Negative) 06/03/18 10:25 Urine Bilirubin Neg (Negative) 06/03/18 10:25 Urine Urobilinogen 4.0 mg/dL (<2.0) 06/03/18 10:25 Ur Leukocyte Esterase Mod (Negative) 06/03/18 10:25 Urine WBC (Auto) 15.0 /HPF (0.0-6.0) H 06/03/18 10:25 Urine RBC (Auto) 1.0 /HPF (0.0-6.0) 06/03/18 10:25 U Epithel Cells (Auto) < 1.0 /HPF (0-13.0) 06/03/18 10:25 Urine Mucus Few /HPF 06/03/18 10:25 Urine Osmolality 420 Mosm/kg 06/03/18 10:25 Urine Sodium 18 mmol/L 06/03/18 10:25 Active Medications - Current Medications Current Medications: Generic Name Dose Route Start Last Admin Trade Name Freq PRN Reason Stop Dose Admin Acetaminophen 650 mg 06/02/18 22:32 06/05/18 10:10 Tylenol PO 650 mg Q4H PRN Administration Pain MILD(1-3)/Fever >100.5/ANDERSON Albuterol 2.5 mg 06/06/18 14:00 06/09/18 09:13 Proventil IH 2.5 mg Q6HRT JULI Administration Aspirin 81 mg 06/03/18 10:00 06/08/18 09:02 Baby Aspirin PO 81 mg QDAY JULI Administration Carvedilol 6.25 mg 06/08/18 22:00 06/08/18 21:03 Coreg PO Not Given BID JULI Famotidine 10 mg 06/07/18 22:00 06/08/18 21:02 Pepcid PO 10 mg BID JULI Administration Furosemide 40 mg 06/06/18 18:00 06/09/18 05:32 Lasix IV 40 mg 0600,1800 JULI Administration Milrinone Lactate/Dextrose 20 mg in 100 mls @ 6.518 mls/hr 06/08/18 12:00 06/09/18 07:25 Milrinone-D5w 20 Mg/100 Ml IV 0.25 mcg/kg/min TITR JULI 6.518 mls/hr Administration 0.25 MCG/KG/MIN Lisinopril 2.5 mg 06/03/18 10:00 06/08/18 09:04 Zestril PO 2.5 mg QDAY JULI Administration Magnesium Oxide 400 mg 06/07/18 10:00 06/08/18 21:02 Mag-Ox PO 400 mg BID JULI Administration Ondansetron HCl 4 mg 06/02/18 22:32 Zofran IV Q8H PRN Nausea And Vomiting Oxycodone/Acetaminophen 1 tab 06/05/18 10:03 06/09/18 02:27 Percocet 5/325 PO 1 tab Q4H PRN Administration Pain, Moderate (4-6) Sodium Chloride 10 ml 06/03/18 10:00 06/08/18 21:04 Sodium Chloride Flush Syringe 10 Ml IV 10 ml BID JULI Administration Sodium Chloride 10 ml 06/02/18 22:32 Sodium Chloride Flush Syringe 10 Ml IV PRN PRN LINE FLUSH Spironolactone 25 mg 06/07/18 11:00 06/08/18 09:04 Aldactone PO 25 mg QDAY JULI Administration Warfarin Sodium 5 mg 06/09/18 17:00 Coumadin PO DAILY@1700 [facility] Protocol Nutrition/Malnutrition Assess - Dietary Evaluation Nutrition/Malnutrition Findings: Nutrition Notes Start: 06/03/18 17:15 Freq: Status: Active Protocol: Document 06/06/18 16:11 RM (Rec: 06/06/18 16:14 RM [id number]) Nutrition Notes Initial or Follow up Assessment Current Diagnosis Hypertension,Heart Failure Other Pertinent Diagnosis R BKA Subjective/Other Information Pt stated he had been previously educated but could not recall what he learned. Reviewed Coumadin/Vit K diet education. Gave handout. #1 Nutrition Diagnosis Food and nutrition-related knowledge deficit Etiology inability to recall previous education As Evidenced by Signs and Symptoms pt desire for education Nutrition Intervention Teaching Recipient Patient Learning Readiness Good Teaching Methods Discussion,Handout Response to Teaching Verbalize understanding Education Handouts Provided Vitamin K and Medications Barriers to Learning No Barriers RD phone number provided Yes Patient aware of follow up options Yes Revisit per MD consult or patient Sign Off request:
[2018-06-09] MEDS: ALDACTONE PO SCH (10:21)
[2018-06-09] MEDS: ZESTRIL PO SCH (10:22)
[2018-06-09] MEDS: COREG PO SCH (10:22)
--- NOTE | 2018-06-09 11:49 | Event Note ---
Date: 06/09/18 Patient has intractable HF despite aggressive medical management. Recommend transfer to [facility] for advanced HF management. Transfer to service of Dr Valencia.
--- NOTE | 2018-06-09 16:27 | Discharge Summary ---
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 for advanced CHF rx Paroxysmal atrial flutter - Heart rate controlled - Continue metoprolol and warfarin - INR level therapeutic, will monitor Hyponatremia - s/p Tolvaptan x1 today, continue oral fluid restriction, improved - Nephrology following Acute hypoxic respiratory failure - secondary to the acute heart failure -continue oxygen supplementation as needed Hypomagnesemia -Resolved status post repletion Generalized abdominal pain -Probably secondary to GERD -On famotidine PVD s/p right below knee amputation Disposition: DC/TX-02 [facility] IP Time spent for discharge: 33 mins Core Measure Documentation - Palliative Care Palliative Care/ Comfort Measures: Not Applicable - Core Measures Any of the following diagnoses?: heart failure - Heart Failure Discharge Requirements PEDRO/ARB for LVSD if EF <40%: Yes Beta gagandeep at discharge: Yes Exam - Constitutional Vitals: Temp Pulse Resp BP Pulse Ox 98.0 F 89 20 96/52 82 L 06/09/18 12:50 06/09/18 13:46 06/09/18 13:46 06/09/18 12:50 06/09/18 12:50 General appearance: Present: no acute distress, well-nourished - EENT Eyes: Present: PERRL ENT: hearing intact, clear oral mucosa - Neck Neck: Present: supple, normal ROM - Respiratory Respiratory effort: normal Respiratory: bilateral: diminished, rales - Cardiovascular Heart Sounds: Present: S1 & S2. Absent: rub, click - Extremities Extremities: pulses symmetrical Extremity abnormal: edema Peripheral Pulses: within normal limits - Abdominal General gastrointestinal: Present: soft, non-tender, non-distended, normal bowel sounds Male genitourinary: Present: normal - Integumentary Integumentary: Present: clear, warm, dry - Musculoskeletal Musculoskeletal: gait normal, strength equal bilaterally - Psychiatric Psychiatric: appropriate mood/affect, intact judgment & insight - Neurologic Neurologic: CNII-XII intact, moves all extremities Plan Follow up with: SOFIYA HERRERA MD [Primary Care Provider] - 3-5 Days Forms: Warfarin Discharge Instruction
[2018-06-09] MEDS ORDERED: COUMADIN PO SCH (17:00)
[2018-06-09 20:40] VITALS: BP 104/61
== END 2018-06-09 21:20 | disposition short-term general hospital (02) | DRG 291 ==
LOC: ED 15:57 → 4A 18:09
PROVIDERS: ADMIT Internal Medicine; ATTEND Internal Medicine
DX: I11.0 Hypertensive heart disease with heart failure (principal); J96.01 Acute respiratory failure with hypoxia; N17.9 Acute kidney failure, unspecified; I48.92 Unspecified atrial flutter; E22.2 Syndrome of inappropriate secretion of antidiuretic hormone; I50.43 Acute on chronic combined systolic (congestive) and diastolic (congestive) heart failure; I42.0 Dilated cardiomyopathy; K21.9 Gastro-esophageal reflux disease without esophagitis; E83.42 Hypomagnesemia; I73.9 Peripheral vascular disease, unspecified; I71.2 Thoracic aortic aneurysm, without rupture; Z79.82 Long term (current) use of aspirin; Z95.810 Presence of automatic (implantable) cardiac defibrillator; Z89.511 Acquired absence of right leg below knee; Z79.899 Other long term (current) drug therapy; Z90.49 Acquired absence of other specified parts of digestive tract; Z82.49 Family history of ischemic heart disease and other diseases of the circulatory system; Z88.1 Allergy status to other antibiotic agents
CPT/HCPCS: 36415; 71045; 80048; 80053; 81001; 82533; 83036; 83735; 83880; 83930; 83935; 84100; 84300; 84443; 84484; 85025; 85610; 93005; 93010; 94640; 94760; 99406; G0378; J1940; J2260; J2270; J3475